=== PATIENT | female | born 1970 | race Caucasian/White ===

== ENCOUNTER → 2017-09-11 12:09 | Outpatient (CLI) | payer OTHER, SELFPAY ==
[2017-09-11 13:23] LABS: Anion Gap 8 (5-15); BUN 17 mg/dL (7-18); BUN/Creat Ratio 16.3 RATIO (10-20); Calcium,Total 8.9 mg/dL (8.5-10.1); Chloride 108 mmol/L (98-107); Creatinine, Serum 1.04 mg/dL (0.55-1.02); EST Glomerular Filtration Rate 60 mL/min (>60); Est Glom Filt Rate - Afr Amer 73 mL/min (>60); Glucose 87 mg/dL (74-106); Magnesium 2.3 mg/dL (1.6-2.6); Potassium 4.2 mmol/L (3.5-5.1); Sodium Level 141 mmol/L (136-145); Thyroid Stim Hormone (TSH) 3.03 uIU/mL (0.358-3.74)
== END ==
PROVIDERS: Family Provider Family Medicine; PCP Family Medicine; Visit Provider Internal Medicine Gastroenterology
DX: R10.9 Unspecified abdominal pain (principal)
CPT/HCPCS: 36415; 80048; 83735; 84436; 84443

== ENCOUNTER → 2017-09-16 09:59 | Outpatient (CLI) | payer OTHER, SELFPAY ==
--- NOTE | 2017-09-16 10:01 | RAD_ITS ---
STUDY: FECAL TRANSIT STUDY. REASON FOR EXAM: Female, 47 years old. Chronic constipation. TECHNIQUE: Images of the abdomen were obtained over a period of 1 week. COMPARISON: None. FINDINGS: The vast majority of the colonic markers are in the left hemicolon. RAD/Colonic Trans GI/w Mul Image IMPRESSION: Large majority of the markers are within the left; falling one week of transit. Electronically Signed: Seb Salvador MD at 13:13 EST Tel [phone], Service support ,
== END ==
PROVIDERS: Family Provider Family Medicine; PCP Family Medicine; Visit Provider Internal Medicine Gastroenterology
DX: K59.00 Constipation, unspecified (principal); R10.9 Unspecified abdominal pain
CPT/HCPCS: 74245

== ENCOUNTER 2017-10-16 07:04 | Day surgery (SDC) | payer OTHER, SELFPAY ==
[2017-10-16] VITALS (7 sets, daily range): BP systolic 87–106; BP diastolic 40–65; PULSE 80–95; RESP 14–16; TEMP 36.3–36.8; O2SAT 98–100; BMI 21.5
--- NOTE | 2017-10-16 08:35 | PCM.OP.BLANK ---
Operative Report Date of Procedure: 10/16/17 Preop diagnosis: [Patient with abdominal pain and constipation abnormal marker study] Postop diagnosis: [Normal-looking: Normal-looking terminal ileum colonoscopy to the terminal ileum] Anesthesia:[Provided the MAC] Instrument:[Olympus adjustable pediatric colonoscope] Informed consent was taken prior to procedure. The patient was brought to the endoscopy suite and placed in the left shoulder down. Anesthesia provided the MAC. Rectal exam was performed prior to inserting the scope. There was some hemorrhoids palpable. Scope was passed into the rectum rectal mucosa was normal. Up to the sigmoid colon and across the transverse colon mucosa was normal. At the hepatic flexure down the right colon the cecum was well-visualized patient had an excellent preparation. Appendiceal orifice was photographed. Terminal ileum was intubated the ileum was normal. Backup the right colon there were no large polyps seen. Across the transverse colon mucosa remain normal. Below the splenic flexure into the left colon there were no large polyps seen. Retroflexion performed in the rectum showed internal hemorrhoids. Was decompressed and the patient tolerated procedure well. Impression: Chronic constipation with slow transit noted by colonic marker study Plan: Patient may try Linzess or TRULANCE consider evaluation by colorectal surgeon
--- NOTE | 2017-10-16 08:40 | OP.PCM_ITS ---
Operative Report Date of Procedure: 10/16/17 Preop diagnosis: [Patient with abdominal pain and constipation abnormal marker study] Postop diagnosis: [Normal-looking: Normal-looking terminal ileum colonoscopy to the terminal ileum] Anesthesia:[Provided the MAC] Instrument:[Olympus adjustable pediatric colonoscope] Informed consent was taken prior to procedure. The patient was brought to the endoscopy suite and placed in the left shoulder down. Anesthesia provided the MAC. Rectal exam was performed prior to inserting the scope. There was some hemorrhoids palpable. Scope was passed into the rectum rectal mucosa was normal. Up to the sigmoid colon and across the transverse colon mucosa was normal. At the hepatic flexure down the right colon the cecum was well- visualized patient had an excellent preparation. Appendiceal orifice was photographed. Terminal ileum was intubated the ileum was normal. Backup the right colon there were no large polyps seen. Across the transverse colon mucosa remain normal. Below the splenic flexure into the left colon there were no large polyps seen. Retroflexion performed in the rectum showed internal hemorrhoids. Was decompressed and the patient tolerated procedure well. Impression: Chronic constipation with slow transit noted by colonic marker study Plan: Patient may try Linzess or TRULANCE consider evaluation by colorectal surgeon
== END 2017-10-16 09:29 | disposition home or self-care (01) ==
LOC: EN 07:06 → AC 07:07
PROVIDERS: Family Provider Family Medicine; PCP Family Medicine; Visit Provider Internal Medicine Gastroenterology
PROC: 0DJD8ZZ Inspection of Lower Intestinal Tract, Via Natural or Artificial Opening Endoscopic (ICD-10-PCS; CPT 45378; principal; 2017-10-16 07:55)
DX: K59.09 Other constipation (principal); K64.8 Other hemorrhoids; G43.909 Migraine, unspecified, not intractable, without status migrainosus; F32.9 Major depressive disorder, single episode, unspecified; Z79.899 Other long term (current) drug therapy
CPT/HCPCS: 45378; J7120

== ENCOUNTER 2017-12-26 04:23 | Emergency (ER) | payer OTHER, SELFPAY ==
[2017-12-26 04:23] VITALS: BP 124/67; PULSE 96; RESP 16; TEMP 36.6; O2SAT 98; BMI 22.1
[2017-12-26] MEDS: proCHLORPERazine 10 MG/2 ML Vial IV (04:36)
[2017-12-26] MEDS: DiphenhydrAMINE 50 MG/ML Syringe 25 MG IV (04:36)
--- NOTE | 2017-12-26 04:36 | ED.DCSUM_ITS ---
- ER Visit Summary Date of Service: 12/26/17 Chief Complaint: Headache History of Present Illness: The patient is a 47 F presenting with headache. She states she woke up with a headache that has gradually worsened since waking. She states it feels similar to her typical migraine headaches. She took Maxalt and 2 Aleve at home with minimal improvement. She denies fever or neck pain. She has nausea and vomiting. She has photophobia. She denies recent trauma. Denies other complaints. Physical Examination: Vitals are stable. Patient is afebrile. Alert no acute distress. HEENT exam is unremarkable. Neck is supple. No meningismus Lungs are clear and equal bilaterally. Heart is regular rate and rhythm. Abdomen is soft nontender nondistended. Extremities are unremarkable. Skin is warm and dry. No focal neurologic deficit. Remainder of exam is unremarkable. Emergency Department Course and Treatment: Patient was given Compazine, Benadryl. CTA head shows normal tak[place] of Yeung without a demonstrated aneurysm or hemodynamically significant stenosis. She has improvement following medications. She was given Toradol IV with further improvement. On reevaluation, she is resting comfortably. She is comfortable with discharge home. Advised follow-up with primary care physician. Advised to return to the ED for worsening complaints. Disposition: Discharge home Impression: Headache This note was generated with [employer] dictation software. It may contain incorrect words, spelling, and punctuation that were not noted in review of the chart prior to signing ED Disposition - Plan for ED Patient: Chief Complaint: Headache Instructions: ED Headache Migraine Referrals: Jarett Faulkner MD [Primary Care Provider] -
--- NOTE | 2017-12-26 05:03 | CT_ITS ---
STUDY: CTA OF THE BRAIN REASON FOR EXAM: Female, 47 years old. Awoke with migraine headache. No relief with medication. RADIATION DOSAGE (If Supplied By Facility): CTDIvol = ( 25.26 ) mGy, DLP = ( 1142.26 ) mGycm TECHNIQUE: CT angiography was performed with a multi-detector CT scanner. Data acquisition was obtained from the skull base through the vertex following intravenous administration of 100 ml of Isovue-370 . MIP images were reconstructed from the axial data set. Post-processing of the angiographic images was performed, with multiplanar reformation and 3D reconstruction. Individualized dose optimization techniques were used for this CT. COMPARISON: None. FINDINGS: Normal bilateral petrous carotid arteries. Normal right cavernous carotid artery with a normal supraclinoid bifurcation. Normal left cavernous carotid artery with a normal supraclinoid bifurcation. Normal right A1 segments of the anterior cerebral artery. Normal left A1 segments of the anterior cerebral artery. Normal intact anterior communicating artery (ACOM). Normal bilateral A2 segments of the anterior cerebral arteries. Normal right M1 and M2 segments of the middle cerebral arteries, with a normal M1 bifurcation. Normal left M1 and M2 segments of the middle cerebral arteries, with a normal M1 bifurcation. Normal right posterior communicating artery (PCOM). Normal left posterior communicating artery (PCOM). Normal bilateral vertebral arteries. Left vertebral artery is dominant. Normal basilar artery with a normal basilar bifurcation. The visualized bilateral superior cerebellar (SCA) arteries are normal. Normal bilateral P1, P2 and visualized P3 segments of the posterior cerebral arteries. There is no demonstrated aneurysm of the grindstone of Yeung. There is no demonstrated abnormality of the visualized brain. CT/CTA Head W/WO Contrast IMPRESSION: Normal grindstone of Yeung without a demonstrated aneurysm or hemodynamically significant stenosis. Electronically Signed: Hussein Slater MD at 5:58 EDT , Service support ,
--- NOTE | 2017-12-26 06:03 | ED.DEP ---
ED Disposition - Plan for ED Patient: Chief Complaint: Headache Instructions: ED Headache Migraine Referrals: Jarett Faulkner MD [Primary Care Provider] -
[2017-12-26] MEDS: Ketorolac 30 MG/ML Syringe IV (06:08)
[2017-12-26 06:10] VITALS: BP 124/60; PULSE 100; RESP 16; O2SAT 100
[2017-12-26 06:39] VITALS: BP 122/60; PULSE 98; RESP 16; O2SAT 100
== END 2017-12-26 06:41 | disposition home or self-care (01) ==
LOC: ED 04:46
PROVIDERS: Emergency Provider Emergency Medicine; Family Provider Family Medicine; PCP Family Medicine
DX: R51 Headache (principal); Z79.899 Other long term (current) drug therapy
CPT/HCPCS: 70496; 96374; 96375; 99284; J7030; Q9967; A4216

== ENCOUNTER → 2018-01-20 14:46 | Outpatient (CLI) | payer OTHER, SELFPAY ==
--- NOTE | 2018-01-20 14:47 | MRI_ITS ---
STUDY: MRI LUMBAR SPINE WITHOUT CONTRAST REASON FOR EXAM: Female, 47 years old. Back pain with left sciatica TECHNIQUE: Standardized fat and water weighted pulse sequences were obtained in the sagittal and axial planes. COMPARISON: None FINDINGS: T12-L1: Normal endplates. Normal disc height, hydration and morphology. Normal bilateral facet joints. Normal central canal and bilateral lateral recesses. Normal bilateral intervertebral neural foramina. Normal lumbar lordosis. There is no substantial scoliosis. Normal conus medullaris that terminates at L1 L1-2: Normal endplates. Normal disc height, hydration and morphology. Normal bilateral facet joints. Normal central canal and bilateral lateral recesses. Normal bilateral intervertebral neural foramina. L2-3: Normal endplates. Normal disc height, hydration and morphology. Normal bilateral facet joints. Normal central canal and bilateral lateral recesses. Normal bilateral intervertebral neural foramina. L3-4: Normal endplates. Normal disc height, hydration and minimal annular bulge. Normal bilateral facet joints. Normal central canal and bilateral lateral recesses. Normal bilateral intervertebral neural foramina. L4-5: Normal endplates. Normal disc height, desiccation and minor annular bulge with small right posterolateral/foraminal disc protrusion. Mild facet arthropathy.. Normal central canal. Mild left lateral recess encroachment Mild right lateral recess and neuroforaminal encroachment.. L5-S1: Normal endplates. Normal disc height, desiccation and minimal annular bulge. Bilateral facet arthropathy.. Normal central canal and bilateral lateral recesses. Normal bilateral intervertebral neural foramina. Normal visualized sacral ala. 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 Normal visualized paraspinous soft tissue structures. MRI/Spine Lumbar (Routine) IMPRESSION: Spinal stenosis at L4-5 secondary to disc disease and bony hypertrophy greater on the right. Minor bulging of the annuli at L3-4 and L5-S1 without evidence for spinal stenosis Electronically Signed: Roosevelt Shahid MD at 18:20 EDT , Service support ,
== END ==
PROVIDERS: Family Provider Family Medicine; PCP Family Medicine; Visit Provider Family Medicine
DX: M54.40 Lumbago with sciatica, unspecified side (principal)
CPT/HCPCS: 72148

== ENCOUNTER → 2018-03-19 13:14 | Outpatient (CLI) | payer OTHER, SELFPAY ==
[2018-03-24 10:32] LABS: HPV Reflexed? NOT INDICATED
== END ==
PROVIDERS: Visit Provider Obstetrics & Gynecology
DX: R30.0 Dysuria (principal); Z12.4 Encounter for screening for malignant neoplasm of cervix; Z86.19 Personal history of other infectious and parasitic diseases
CPT/HCPCS: 87077; 87086; 87088; 87186; 88175; G0145

== ENCOUNTER → 2018-03-26 07:32 | Outpatient (CLI) | payer OTHER, SELFPAY | PROVIDERS: Family Provider Family Medicine; PCP Family Medicine; Visit Provider Orthopaedic Surgery | DX: M99.83 Other biomechanical lesions of lumbar region (principal) | CPT/HCPCS: 78306 ==

== ENCOUNTER → 2018-04-14 08:07 | Outpatient (CLI) | payer OTHER, SELFPAY ==
--- NOTE | 2018-04-14 08:09 | BI_ITS ---
MAMMOGRAPHY - BILATERAL SCREENING REASON FOR EXAM: Female, 48 years old. Routine annual screening examination. PERTINENT HISTORY: Non-contributory. History of prior right cyst aspiration. TECHNIQUE: Digital bilateral breast isidra (3D mammographic acquisition) in the CC and MLO projections. 2-D mediolateral oblique (MLO) and craniocaudad (CC) views of both breasts were obtained. CAD: Full Field Digital Mammography with Computer Added Detection was performed. COMPARISON: Comparison is made with prior examination dated December 27, 2016 and February 14, 2016 FINDINGS: Breast Composition: The breasts are heterogeneously dense, which may obscure small masses. The nodular density in the mid medial portion of the left breast as increased in size. It presently measures 1.7 cm x 2.1 cm. Prior sonogram demonstrated this to be a cyst. The previously seen nodular density in the right breast is not seen at this time in keeping with the history of prior aspiration. No other significant abnormalities are identified. BI/SCREENING MAMM (CAD), BILAT IMPRESSION: Increased size of the nodular density seen in the right breast as described suggestive of enlargement of the previously documented cyst. ASSESSMENT CATEGORY: BIRADS Category 2: Benign. A letter regarding these results will be sent to the patient by the facility within 30 days. Approximately 10% of breast cancers are not detected by mammography. A normal mammogram should not delay biopsy of a clinically suspicious abnormality. [id number] Electronically Signed: Seb Salvador MD at 9:08 EDT Tel [phone], Service support ,
--- NOTE | 2018-04-14 08:31 | BD_ITS ---
STUDY: DUAL ENERGY X-RAY ABSORPTIOMETRY / DXA REASON FOR EXAM: Female, 48 years old. Loss of height. TECHNIQUE: Bone Mineral Density (BMD) measurements of lumbar spine and bilateral hips were obtained. COMPARISON: None. FINDINGS: Lumbar Spine (L1-L4): g/cm2 (1.206) / T-score (0.3) / Z-score (0.6) Findings are suggestive of normal bone density with a low fracture risk. Left Femur Total: g/cm2 (0.783) / T-score (-1.8) / Z-score (-1.4) Left Femoral Neck: g/cm2 (0.796) / T-score (-1.7) / Z-score (-1.0) Right Femur Total: g/cm2 (0.795) / T-score (-1.7) / Z-score (-1.3) Right Femoral Neck: g/cm2 (0.863) / T-score (-1.3) / Z-score (-0.6) BD/Dexa Bone Density Study IMPRESSION: The patient is considered osteopenic as outlined below according to World [place] Organization (WHO) criteria with a moderate fracture risk. Reference Information: The T-score is the number of standard deviations above or below the standard which is normal for young adults at their peak bone mineral density. The World Health Organization (WHO) interprets the T-scores as follows: Above -1 Normal bone density Between -1 and -2.5 Osteopenia Equal to / or below -2.5 Osteoporosis As a practical clinical guideline, osteopenia may be graded as follows: Mild -1 through -1.5 Moderate -1.6 through -2.0 Severe -2.1 through -2.4 The Z-score is the number of standard deviations above or below age-matched controls. A Z-score of less than -1.5 would be considered abnormal. References: 1. NIH Osteoporosis and Related Bone Diseases http://www.osteo.org 2. International Society for Clinical Densitometry http://www.iscd.org 3. National Osteoporosis Foundation http://www.nof.org Electronically Signed: Seb Salvador MD at 14:14 EDT Tel [phone], Service support ,
== END ==
PROVIDERS: Family Provider Family Medicine; PCP Family Medicine; Visit Provider Orthopaedic Surgery
DX: Z12.31 Encounter for screening mammogram for malignant neoplasm of breast (principal); M99.83 Other biomechanical lesions of lumbar region
CPT/HCPCS: 77062; 77067; 77080; G0279

== ENCOUNTER 2018-05-13 09:30 | Outpatient (RCR) | payer OTHER, SELFPAY ==
--- NOTE | 2017-12-24 18:50 | MASS.EVAL ---
Massage Therapy Evaluation: Initial Evaluation Date: 12/22/2017 SUBJECTIVE: Laxmi is a 47 year old female who was referred to the [facility] for a massotherapy evaluation by Dr. Ron Faulkner with the diagnosis of neck pain. Laxmi presents today with the symptoms of neck and upper back pain and tension. She complains of getting migraines. She also has muscle tension in her low back and hips. She reports having minimal limitations during her daily activities. OBJECTIVE: Upon observation Laxmi has poor posture with her head forward and shoulders forward from the neutral position in sitting and standing. After examination and palpation I found Laxmi to have very high muscle tension with tenderness and myofascial restrictions in her sub occipitals, trapezius, rhomboids, scalenes, thoracic paraspinals. Her hips and lumbar region were also tight. The first treatment consisted of a one hour massage to her full body with myofascial release, muscle stripping, trigger point compression techniques, and cervical manual traction. ASSESSMENT: I feel that Laxmi is a good candidate for massotherapy at this time. She had a favorable response to the first treatment with reduction in her muscle aches, pain and tension. She also had improvement in her cervical flexibility. PLAN: The plan of care was reviewed with the patient. The patient is to be seen on as needed basis for a total of ten sessions with the recommendation of once every four weeks for a one hour treatment. Lesli Vazquez LMT
--- NOTE | 2018-07-21 13:33 | DS.PCM_ITS ---
Massage Therapy Discharge Summary: Discharge Date: 07/21/2018 Laxmi was seen for a massotherapy evaluation on 12/28/2017 with the diagnosis of neck pain and having migraines. She was treated with three sessions of massage therapy consisting of deep pressure soft tissue techniques, myofascial release and trigger point compression to her cervical and upper extremities. Laxmi responded well to the therapy by reporting decreased tension and pain throughout her neck and shoulders. Her goals for therapy were not met due to no follow up treatment sessions performed. At this time this patient is being discharged from our care at [facility] facility.
== END 2018-05-13 19:00 | disposition home or self-care (01) ==
LOC: MASS 09:30
PROVIDERS: Family Provider Family Medicine; PCP Family Medicine; Visit Provider Family Medicine
DX: M54.2 Cervicalgia (principal); M79.1 Myalgia
CPT/HCPCS: 97124

== ENCOUNTER → 2018-05-21 08:47 | Outpatient (CLI) | payer OTHER, SELFPAY ==
--- NOTE | 2018-05-21 09:23 | MRI_ITS ---
STUDY: MR PELVIS WITHOUT CONTRAST REASON FOR EXAM: Female, 48 years old. Low back pain. Sacroiliitis. TECHNIQUE: Standardized fat and water weighted pulse sequences were obtained in all 3 orthogonal planes. # of Images: 216 COMPARISON: CT April 25, 2017. FINDINGS: Normal urinary bladder. Normal visualized small intestine. Normal visualized colon. There is absence of the uterus consistent with a prior hysterectomy. There are 3.0 and 2.9 cm right adnexal cysts. There is no pelvic fluid. There is no pelvic mass lesion or lymphadenopathy. Normal visualized pelvic arteries. The generalized signal intensity of the osseous structures is intact. There is no fracture. The joint spaces of the hips are well-preserved. The sacroiliac joints are well preserved. Normal abdominal wall. MRI/Pelvis (Routine) IMPRESSION: Sacroiliac joints are well-maintained. No fracture or avascular necrosis of the hips. Right adnexal cysts. Prior hysterectomy. Electronically Signed: Elia Lares MD at 15:55 EDT , Service support ,
[2018-05-21 10:32] LABS: Erythrocyte Sedimentation Rate 4 mm/hr (0-20)
[2018-05-21 11:00] LABS: CRP < 2.90 mg/L (0.0-3.0); Calcium,Total 8.5 mg/dL (8.5-10.1); Thyroid Stim Hormone (TSH) 3.58 uIU/mL (0.358-3.74)
[2018-05-21 11:05] LABS: PTHIN 54.2 pg/mL (18.4-80.1); Vitamin D,25 Hydroxy 24.2 ng/mL (29.95-100.01)
[2018-05-26 16:09] LABS: PROEL- A/G Ratio 1.3 (0.7-1.7); PROEL- Alpha-1 Globulin 0.2 g/dL (0.0-0.4); PROEL- Alpha-2 Globulin 0.7 g/dL (0.4-1.0); PROEL- Gamma Globulin 1.1 g/dL (0.4-1.8)
[2018-05-27 11:13] LABS: HLA B27 Negative (.)
== END ==
PROVIDERS: Family Provider Family Medicine; PCP Family Medicine; Referring Provider Internal Medicine Rheumatology; Visit Provider Internal Medicine Rheumatology
DX: M46.1 Sacroiliitis, not elsewhere classified (principal); R53.82 Chronic fatigue, unspecified; M89.9 Disorder of bone, unspecified; M54.5 Low back pain
CPT/HCPCS: 36415; 72195; 81374; 82306; 82310; 83970; 84165; 84443; 85652; 86140

== ENCOUNTER → 2018-10-19 15:28 | Outpatient (CLI) | payer OTHER, SELFPAY ==
--- NOTE | 2018-10-19 15:35 | CT_ITS ---
STUDY: CT ABDOMEN AND PELVIS WITHOUT CONTRAST REASON FOR EXAM: Female, 48 years old. Left flank pain RADIATION DOSAGE (If Supplied By Facility): CTDIvol = ( 9.36 ) mGy, DLP = ( 449.54 ) mGycm TECHNIQUE: Transaxial images were obtained from the dome of the diaphragm to the symphysis pubis without oral contrast, and without intravenous contrast. Sagittal and coronal images were reconstructed. Individualized dose optimization techniques were used for this CT. COMPARISON: None. FINDINGS: The visualized lung bases are unremarkable. The visualized portions of the heart are within normal limits. Normal liver. Normal gallbladder and extrahepatic biliary system. Normal spleen. Normal pancreas. Normal bilateral adrenal glands. Normal right kidney. There is 7 mm stone in the left kidney. Normal visualized stomach. Normal small intestine. Normal colon. The appendix is visualized and appears normal. Normal abdominal aorta. Normal inferior vena cava. Normal retroperitoneum. Normal urinary bladder. Normal abdominal wall. Normal osseous structures. CT/Abdomen/Pelvis without Cont IMPRESSION: There is 7 mm stone in the left kidney. Electronically Signed: Saman Sofia, at 16:17 EDT Tel , Service support ,
== END ==
PROVIDERS: Family Provider Family Medicine; PCP Family Medicine; Referring Provider Urology; Visit Provider Urology
DX: N20.0 Calculus of kidney (principal); R10.9 Unspecified abdominal pain
CPT/HCPCS: 74176

== ENCOUNTER → 2018-10-20 12:12 | Outpatient (CLI) | payer OTHER, SELFPAY | PROVIDERS: Family Provider Family Medicine; PCP Family Medicine; Referring Provider Urology; Visit Provider Urology | DX: R30.0 Dysuria (principal) | CPT/HCPCS: 87077; 87086; 87088; 87186 ==

== ENCOUNTER → 2018-11-04 11:19 | Outpatient (CLI) | payer OTHER, SELFPAY | PROVIDERS: Family Provider Family Medicine; PCP Family Medicine; Referring Provider Urology; Visit Provider Urology | DX: Z01.812 Encounter for preprocedural laboratory examination (principal) | CPT/HCPCS: 87086; 87088; 87186 ==

== ENCOUNTER 2018-11-13 07:20 | Day surgery (SDC) | payer OTHER, SELFPAY ==
[2018-11-13] VITALS (8 sets, daily range): BP systolic 92–120; BP diastolic 56–82; PULSE 73–103; RESP 16; TEMP 36.2–37.1; O2SAT 100; BMI 21.6
[2018-11-13] MEDS: Cefazolin 2 GM in 0.9% Normal Saline 100 ML IV (08:55)
--- NOTE | 2018-11-13 09:01 | PCM.DC.URO ---
Discharge Diet: No Restrictions Discharge Activity: Return to Normal Activity May resume sexual activity in: No Restrictions Call your doctor if you observe: Fever of 101 or Higher, Inability to urinate, Shortness of breath, Chest pain, Calf discomfort, Uncontrolled pain Allergies/Adverse Reactions: Allergies Sulfa (Sulfonamide Antibiotics) Allergy (Verified 11/06/18 13:16) Hives Medications to take at Discharge Topiramate [Topamax] 50 mg PO TID 06/27/13 buPROPion SR [Wellbutrin Sr] 150 mg PO DAILY 06/27/13 Rizatriptan Benzoate [Maxalt] 10 mg PO .X1 PRN 12/26/17 Cephalexin [Keflex] 500 mg PO DAILY 11/06/18 Duloxetine Hcl [Cymbalta] 20 mg PO DAILY 11/06/18 Erenumab-Aooe [Aimovig Autoinjector] 70 mg SQ QMONTH 11/06/18 Primary Care Physician: Jarett Faulkner MD [Primary Care Provider] - Test Results: Test results from this visit will be discussed in further detail at your follow-up appointment, if applicable. Please Follow Up With: Alexa Miller MD When: 2-3 weeks with a [facility] Proposed Discharge Date: 11/13/18
--- NOTE | 2018-11-13 09:04 | DCINST_ITS ---
Discharge Diet: No Restrictions Discharge Activity: Return to Normal Activity May resume sexual activity in: No Restrictions Call your doctor if you observe: Fever of 101 or Higher, Inability to urinate, Shortness of breath, Chest pain, Calf discomfort, Uncontrolled pain Allergies/Adverse Reactions: Allergies Sulfa (Sulfonamide Antibiotics) Allergy (Verified 11/06/18 13:16) Hives Medications to take at Discharge Topiramate [Topamax] 50 mg PO TID 06/27/13 buPROPion SR [Wellbutrin Sr] 150 mg PO DAILY 06/27/13 Rizatriptan Benzoate [Maxalt] 10 mg PO .X1 PRN 12/26/17 Cephalexin [Keflex] 500 mg PO DAILY 11/06/18 Duloxetine Hcl [Cymbalta] 20 mg PO DAILY 11/06/18 Erenumab-Aooe [Aimovig Autoinjector] 70 mg SQ QMONTH 11/06/18 Primary Care Physician: Jarett Faulkner MD [Primary Care Provider] - Test Results: Test results from this visit will be discussed in further detail at your follow- up appointment, if applicable. Please Follow Up With: Alexa Miller MD When: 2-3 weeks with a [facility] Proposed Discharge Date: 11/13/18
--- NOTE | 2018-11-13 09:04 | PCM.OPRPT ---
Problem List (1) Renal calculus, left Status: Acute Report of Operation Date of Procedure: 11/13/18 Pre-Operative Diagnosis: left renal calculus Post-Operative Diagnosis: same Surgery/Procedure Performed:: left extracorporeal shockwave lithotripsy Description of Surgical Findings:: stone looks well fragmented. Type of Anesthesia:: General Description of Procedure: The patient is a 48-year-old woman who was identified as having a left renal calculus in the office. All risk benefits and alternatives were discussed and she decided to proceed with surgical intervention. Informed consent was obtained for extracorporal shockwave lithotripsy. She was taken to the operating room and placed on the lithotripsy table. Anesthesia monitored the head, neck, airway, IV access and vital signs throughout the case. Once anesthesia was appropriately administered, the patient was aligned with a lithotripter. The stone was easily seen on fluoroscopy. It measured approximately 6 x 4 mm in size. 2000 shocks were applied and the stone appeared to be essentially dissolved. The case was terminated. The patient was awakened and taken to the recovery room in good condition. There were no complications during this procedure. Grafts/Implants Used: none - Complications none - Admit VTE Documentation VTE Present on Admission: Yes VTE Mechan Device Prophylaxis: SCD's VTE Pharm Prophylaxis ordered?: No Reason prophylaxis not ordered:: Treatment Not Indicated
== END 2018-11-13 12:00 | disposition home or self-care (01) ==
LOC: SDC 07:20 → AC 07:21
PROVIDERS: Family Provider Family Medicine; PCP Family Medicine; Referring Provider Urology; Visit Provider Urology
PROC: (CPT 50590; principal; 2018-11-13 08:45)
DX: N20.0 Calculus of kidney (principal); G43.909 Migraine, unspecified, not intractable, without status migrainosus; Z79.899 Other long term (current) drug therapy
CPT/HCPCS: 50590; J7120; J2405

== ENCOUNTER → 2018-11-26 | Outpatient (CLI) | payer OTHER, SELFPAY ==
[2018-11-13 07:39] VITALS: BMI 21.6
--- NOTE | 2018-11-26 10:20 | RAD_ITS ---
STUDY: X-RAY - ABDOMEN/PELVIS REASON FOR EXAM: Female, 48 years old. Flank pain TECHNIQUE: 2 views COMPARISON: None. FINDINGS: Normal visualized lung bases. There is an unremarkable bowel gas pattern. There is no demonstrated free abdominal air. The visualized liver, spleen and kidneys are grossly normal in size and morphology. There are calcified phleboliths in the pelvis. Normal visualized osseous structures. RAD/Abdomen Single View IMPRESSION: Normal x-ray examination of the abdomen and pelvis. Electronically Signed: Gavin Tavarez MD at 11:06 EDT , Service support ,
== END | disposition home or self-care (01) ==
LOC: RAD 10:02
PROVIDERS: Family Provider Family Medicine; PCP Family Medicine; Referring Provider Urology; Visit Provider Urology
DX: N20.0 Calculus of kidney (principal)
CPT/HCPCS: 74018

== ENCOUNTER → 2018-12-03 | Outpatient (CLI) | payer OTHER, SELFPAY ==
[2018-11-13 07:39] VITALS: BMI 21.6
--- NOTE | 2018-12-03 12:36 | RAD_ITS ---
STUDY: X-RAY - PELVIS AND BILATERAL HIPS REASON FOR EXAM: Female, 48 years old. Bilateral hip pain TECHNIQUE: AP view of the pelvis.? 2 views of the right hip, and 2 views of the left hip were obtained. COMPARISON: None. FINDINGS: There is a non-specific bowel gas pattern. Normal visualized soft tissue structures. Normal bilateral iliac wings, sacroiliac joints and visualized sacrum. Normal bilateral superior and inferior pubic rami. Normal pubic symphysis. Normal bilateral ischial tuberosities. Normal visualized right femoral head. Normal right acetabulum. Normal right hip joint. Normal visualized left femoral head. Normal left acetabulum. Normal left hip joint. RAD/Hips B/L min 2 views w/ Pelvis IMPRESSION: Normal x-ray examination of the pelvis and bilateral hips. Electronically Signed: Don Reed MD at 21:32 EDT Tel , Service support ,
== END | disposition home or self-care (01) ==
LOC: RAD 12:02
PROVIDERS: Family Provider Family Medicine; PCP Family Medicine; Referring Provider Anesthesiology Pain Medicine; Visit Provider Anesthesiology Pain Medicine
DX: M25.552 Pain in left hip (principal); M25.551 Pain in right hip
CPT/HCPCS: 73521

== ENCOUNTER → 2018-12-19 | Outpatient (CLI) | payer OTHER, SELFPAY ==
[2018-11-13 07:39] VITALS: BMI 21.6
== END | disposition home or self-care (01) ==
LOC: LABSPEC 11:35
PROVIDERS: Family Provider Family Medicine; PCP Family Medicine; Referring Provider Urology; Visit Provider Urology
DX: N20.0 Calculus of kidney (principal)
CPT/HCPCS: 81050

== ENCOUNTER → 2019-03-25 | Outpatient (CLI) | payer OTHER, SELFPAY ==
[2018-11-13 07:39] VITALS: BMI 21.6
[2019-03-25 08:12] LABS: Thyroid Stim Hormone (TSH) 3.69 uIU/mL (0.358-3.74)
== END | disposition home or self-care (01) ==
LOC: LAB 06:42
PROVIDERS: Family Provider Family Medicine; PCP Family Medicine; Referring Provider Internal Medicine Gastroenterology; Visit Provider Internal Medicine Gastroenterology
DX: R07.9 Chest pain, unspecified (principal); R12 Heartburn; K21.9 Gastro-esophageal reflux disease without esophagitis; K59.00 Constipation, unspecified; R05 Cough; R13.14 Dysphagia, pharyngoesophageal phase
CPT/HCPCS: 36415; 84443

== ENCOUNTER → 2019-03-29 | Outpatient (CLI) | payer OTHER, SELFPAY ==
[2018-11-13 07:39] VITALS: BMI 21.6
[2019-03-29 09:33] LABS: Glucose, Dipstick Normal (Normal); Ketone-Dipstick 5 mg/dl (Negative); Leukocyte Esterase-Dipstick 100 /ul (Negative); Nitrite-Dipstick Positive (Negative); Occult Blood-Urine 10 /ul (Negative); Protein-Dipstick 30 mg/dl (Negative); Specific Gravity, Urine 1.025 (1.002-1.030); Urine Clarity Sl. Cloudy (Clear); Urine Urobilinogen 1 mg/dl (Normal); Urine pH 6.5 (5.0 - 8.0)
[2019-03-29 09:36] LABS: Color, Urine SEE COMMENT BELOW (Yellow); Urine Bilirubin Dipstick 1 mg/dL (Negative)
== END | disposition home or self-care (01) ==
PROVIDERS: Family Provider Family Medicine; PCP Family Medicine; Referring Provider Urology; Visit Provider Urology
DX: R30.0 Dysuria (principal)
CPT/HCPCS: 81002; 87086; 87088; 87186

== ENCOUNTER → 2019-04-08 | Outpatient (CLI) | payer OTHER, SELFPAY ==
[2018-11-13 07:39] VITALS: BMI 21.6
--- NOTE | 2019-04-08 14:00 | CT_ITS ---
STUDY: CT ABDOMEN AND PELVIS WITH AND WITHOUT CONTRAST REASON FOR EXAM: Female, 49 years old. Recurrent UTIs. Left flank pain. RADIATION DOSAGE (If Supplied By Facility): CTDIvol = ( 12.54 ) mGy, DLP = ( 1748.18 ) mGycm TECHNIQUE: Transaxial images were obtained from the dome of the diaphragm to the symphysis pubis without oral contrast. 100CC IV Isovue 300 was administered. Sagittal and coronal images were reconstructed. Individualized dose optimization techniques were used for this CT. COMPARISON: Comparison is made with prior study of October 19, 2018. FINDINGS: The visualized lung bases are unremarkable. The visualized portions of the heart are within normal limits. Normal liver. Normal gallbladder and extrahepatic biliary system. Normal spleen. Normal pancreas. Normal bilateral adrenal glands. Normal right kidney. Normal left kidney. Normal visualized stomach. Normal small intestine. Moderate/large amount of fecal material is seen in the colon. There is non-visualization of the appendix. Normal abdominal aorta. Normal inferior vena cava. Normal retroperitoneum. Normal urinary bladder. There is absence of the uterus consistent with a prior hysterectomy. Normal abdominal wall. Normal osseous structures. CT/CT Abd/Pelvis W/WO Contrast IMPRESSION: Moderate/large amount of fecal material is seen in the colon. Electronically Signed: Seb Salvador, at 9:39 EDT , Service support ,
== END | disposition home or self-care (01) ==
LOC: CT 13:21
PROVIDERS: Family Provider Family Medicine; PCP Family Medicine; Referring Provider Urology; Visit Provider Urology
DX: N39.0 Urinary tract infection, site not specified (principal); R10.9 Unspecified abdominal pain
CPT/HCPCS: 74178; Q9967

== ENCOUNTER → 2019-05-07 | Outpatient (CLI) | payer OTHER, SELFPAY ==
[2018-11-13 07:39] VITALS: BMI 21.6
--- NOTE | 2019-05-07 07:21 | BI_ITS ---
MAMMOGRAPHY - BILATERAL SCREENING REASON FOR EXAM: Female, 49 years old. Routine annual screening examination. PERTINENT HISTORY: Non-contributory. History of prior right breast aspiration. TECHNIQUE: Digital bilateral breast edmundo (3D mammographic acquisition) in the CC and MLO projections. 2-D mediolateral oblique (MLO) and craniocaudad (CC) views of both breasts were obtained. CAD: Full Field Digital Mammography with Computer Added Detection was performed. COMPARISON: Comparison is made with prior study dated April 14, 2018 and December 27, 2016. FINDINGS: Breast Composition: The breasts are heterogeneously dense, which may obscure small masses. There are no dominant masses or suspicious calcifications. The previously seen nodular density in the mid medial portion of left breast as decrease in size. It presently measures 8.2 mm x 8 mm. No other significant abnormalities are identified. BI/SCREEN MAMM (CAD) W/EDMUNDO BILAT IMPRESSION: Stable bilateral screening mammogram. Yearly follow-up mammogram recommended. (A) ASSESSMENT CATEGORY: BIRADS Category 2: Benign. A letter regarding these results will be sent to the patient by the facility within 30 days. Approximately 10% of breast cancers are not detected by mammography. A normal mammogram should not delay biopsy of a clinically suspicious abnormality. [id number] Electronically Signed: Seb Salvador, at 9:03 EDT , Service support ,
== END | disposition home or self-care (01) ==
LOC: OPBI 07:22
PROVIDERS: Family Provider Family Medicine; PCP Family Medicine; Referring Provider Obstetrics & Gynecology; Visit Provider Obstetrics & Gynecology
DX: Z12.31 Encounter for screening mammogram for malignant neoplasm of breast (principal)
CPT/HCPCS: 77063; 77067

== ENCOUNTER → 2019-06-24 15:19 | Outpatient (CLI) | payer OTHER, SELFPAY ==
[2019-06-16 13:04] VITALS: BMI 22.8
--- NOTE | 2019-06-24 15:22 | EKG12_ITS ---
Test Reason : FAM. HX Blood Pressure : / mmHG Vent. Rate : 085 BPM Atrial Rate : 085 BPM P-R Int : 148 ms QRS Dur : 086 ms QT Int : 374 ms P-R-T Axes : 086 089 074 degrees QTc Int : 445 ms Normal sinus rhythm Normal ECG Confirmed by IGNACIO ALVARADO, JUANITO ([id number]), editor dictionary ILDA SUN ([id number]) on 06/30/2019 12:07:40 PM Referred By: Haylie Coley Confirmed By:LILIANA PIERRE MD
== END ==
PROVIDERS: Family Provider Internal Medicine; PCP Internal Medicine; Referring Provider Internal Medicine; Visit Provider Internal Medicine
DX: Z82.49 Family history of ischemic heart disease and other diseases of the circulatory system (principal); R07.9 Chest pain, unspecified
CPT/HCPCS: 93005

== ENCOUNTER → 2019-06-29 06:06 | Outpatient (CLI) | payer OTHER, SELFPAY ==
[2019-06-16 13:04] VITALS: BMI 22.8
[2019-06-29 07:17] LABS: Cholesterol 239 mg/dL (200); High Density Lipoprotein 71 mg/dL; Triglycerides 130 mg/dL; Very Low Density Lipoprotein 26 mg/dL (5-40)
== END ==
PROVIDERS: Family Provider Internal Medicine; PCP Internal Medicine; Referring Provider Internal Medicine; Visit Provider Internal Medicine
DX: E78.5 Hyperlipidemia, unspecified (principal)
CPT/HCPCS: 36415; 80061

== ENCOUNTER → 2019-07-08 06:44 | Outpatient (CLI) | payer OTHER, SELFPAY ==
[2019-06-16 13:04] VITALS: BMI 22.8
--- NOTE | 2019-07-08 16:44 | STRESSREP_ITS ---
Stress Test Report Date: 07/08/2019 Procedure: Exercise tolerance test/imaging study Indications: Chest pain Consent: Per the patient Procedure: The patient exercised on a Saad protocol for 9 minutes achieving a peak heart rate of 157 bpm (91 % predicted maximal heart rate) with a peak blood pressure 144/62 mmHg and a peak MET capacity of 10.1 METs. The baseline ECG demonstrated normal sinus rhythm. The peak exercise ECG demonstrated sinus tachycardia with baseline artifact and what appears to be upsloping ST depressions in the inferior leads. EKG during recovery revealed no significant ischemic changes [There were no cardiac dysrhythmias pretest, during exercise, or recovery]. The functional capacity was considered above average for age. There was [no complaint of chest discomfort during exercise or recovery]. The examination was discontinued secondary to dyspnea. Impression: 1. Technically adequate (percent predicted maximal heart rate greater than 85%) exercise tolerance test 2. Stress test is negative for exercise-induced EKG changes of ischemia 3. The test test is negative for exercise-induced chest pain 4. Functional capacity is above average for age 5. Nuclear images pending Myocardial perfusion imaging study: Technique: The patient was injected with 11 mCi of technetium 99m Cardiolite and sub sequently rest SPECT Cardiolite nuclear imaging was obtained in the horizontal long, vertical long, and short axis views. The patient exercised on a Saad protocol. Please see above for details. The patient was injected with 33 mCi of technetium 99m Cardiolite and subsequently stress SPECT Cardiolite nuclear imaging was obtained in the horizontal long, vertical long, and short axis views. A gated Cardiolite study at peak stress was obtained. Interpretation: Rest and stress SPECT Cardiolite nuclear imaging status post realignment, normalization, and attenuation correction, demonstrates normal myocardial radioisotope uptake. The gated Cardiolite study demonstrates no significant regional wall motion abnormalities. The reported LVEF is greater than 70 %. Impression: 1. There is no evidence of significant ischemia or infarction. 2. The gated Cardiolite study reports an LVEF of greater than 70 %. This note was generated with [employer] software. It may contain incorrect words, spelling, and punctuation that were not noted in checking the note before signing.
== END ==
PROVIDERS: Family Provider Internal Medicine; PCP Internal Medicine; Referring Provider Internal Medicine; Visit Provider Internal Medicine
DX: R07.9 Chest pain, unspecified (principal)
CPT/HCPCS: 78452; 93017; A9500; A4216

== ENCOUNTER → 2019-09-02 10:04 | Outpatient (CLI) | payer OTHER, SELFPAY ==
[2019-09-01 16:33] VITALS: BMI 23.7
--- NOTE | 2019-09-02 10:05 | RAD_ITS ---
STUDY: X-RAY - RIGHT KNEE REASON FOR EXAM: Female, 49 years old. FALL LAST WEEK, PAIN AND SWELLING ANTERIOR KNEE TECHNIQUE: 4 view(s) of the knee. COMPARISON: Comparison is made with prior study dated August 20, 2011. FINDINGS: Normal visualized distal femur. Normal visualized proximal tibia and fibula. Normal proximal tibiofibular articulation. Normal medial femorotibial compartment. Normal lateral femorotibial compartment. Normal patellofemoral articulation. The soft tissue structures are unremarkable. RAD/Knee 4 or More Views IMPRESSION: Normal x-ray examination of the knee. Electronically Signed: Seb Salvador, at 10:37 EST , Service support ,
== END ==
LOC: RAD 10:05
PROVIDERS: PCP Internal Medicine; Referring Provider Nurse Practitioner Family; Visit Provider Nurse Practitioner Family
DX: M25.561 Pain in right knee (principal)
CPT/HCPCS: 73564

== ENCOUNTER 2020-01-18 09:57 | Observation (INO) | payer OTHER, SELFPAY ==
[2019-09-17 07:54] VITALS: BMI 23.7
[2019-12-28 15:10] VITALS: BMI 23.7
[2020-01-17 17:14] LABS: Probe Check PASS; Specimen Processing Control PASS
[2020-01-18] VITALS (12 sets, daily range): BP systolic 100–138; BP diastolic 45–87; PULSE 83–112; RESP 14–16; TEMP 35.9–36.6; O2SAT 93–100; BMI 24.0; BMI 23.9
--- NOTE | 2020-01-18 08:43 | PCM.HP.STD ---
Problem List (1) Cystocele Status: Acute (2) Vaginal vault prolapse Status: Acute (3) Stress incontinence Status: Acute History of Present Illness Date of Admission: 01/18/20 Chief Complaint: cystocele, vault prolapse, stress incontinence The patient is a 49 year old F with pelvic organ prolapse who now presents for definitive surgical intervention following urodynamics and office cystoscopy. Risk benefits and alternatives were discussed including the risk of COVID-19. The patient understands and desires to proceed. Past Medical History Past Medical History (Chronic Problems): Chronic Problems (Last Reviewed 01/18/20 @ 08:[address] Alexa Miller MD) Chronic constipation (Chronic) Migraine (Chronic) Anxiety and depression (Chronic) Hyperlipidemia (Chronic) Medical History: Medical History (Last Reviewed 01/18/20 @ 08:[address] Alexa Miller MD) Back problem M53.9 Breast lump N63.0 GI problem R19.8 History of kidney stones Z87.442 Osteopenia M85.80 benign mass on kidney and or bladder manager program Allergies Sulfa (Sulfonamide Antibiotics) Allergy (Verified 01/12/20 08:52) Hives Home Medications: Ambulatory Orders Medication Instructions Recorded Rizatriptan Benzoate [Maxalt] 10 mg PO .X1 PRN 12/26/17 meloxicam 7.5 mg tablet 7.5 mg PO DAILY 06/11/19 erenumab-aooe 70 mg/mL 70 mg SC QMONTH 06/16/19 subcutaneous auto-injector polyethylene glycol 3350 17 8.5 g PO DAILY g 06/16/19 gram/dose oral powder rosuvastatin 5 mg tablet 5 mg PO DAILY #90 tab 07/14/19 duloxetine 30 mg capsule,delayed 30 mg PO BID #180 cap 10/05/19 release sprinkle nortriptyline 25 mg capsule 25 mg PO QHS #90 cap 10/05/19 trazodone 50 mg tablet 50 mg PO QHS PRN #30 tab 12/14/19 linaclotide 145 mcg capsule 145 mcg PO DAILY cap 12/28/19 magnesium 250 mg tablet 250 mg PO DAILY 12/28/19 melatonin 10 mg tablet 10 mg PO HS PRN 12/28/19 Doxycycline Hyclate 100 mg PO BID PRN 01/12/20 Surgical History: Surgical History (Last Reviewed 01/18/20 @ 08:[address] Alexa Miller MD) History of ankle surgery Z98.890 Right, 1989 History of hysterectomy Z90.710 2000 History of knee surgery Z98.890 Rt 2005, Lt. 2006 History of tonsillectomy Z90.89 Smoking Status: Never smoker Tobacco Use: Non-smoker Review of Systems Constitutional: Denies: Anorexia, Chills, Fever Eyes: Denies: Double vision HEENT: Denies: Difficulty Swallowing, Visual Changes Cardiovascular: Denies: Chest Pain, Chest Pressure Respiratory: Denies: Cough, Shortness of Breath Gastrointestinal: Denies: Abdominal Pain, Nausea, Vomiting Genitourinary: Reports: Incontinence. Denies: Dysuria, Retention Gynecological: Denies: Breast symptoms Musculoskeletal: Denies: Muscle pain Skin: Denies: Wounds Neurological: Denies: Balance problems, Difficulty swallowing Endocrine: Denies: Change in Body Habitus VTE Information - Inpt Only VTE Present on Admission: Yes VTE Mechan Device Prophylaxis: SCD's VTE Pharm Prophylaxis ordered?: Yes Patient Problems: Active and Suspected Problems (Last Reviewed 01/18/20 @ 08:[address] Alexa Miller MD) Cystocele (Acute) Vaginal vault prolapse (Acute) Stress incontinence (Acute) - Physical Exam Vitals/I&O's: Body Mass Index (BMI) 23.7 General: Alert, Oriented x3, Cooperative, No apparent distress HEENT: Atraumatic, Normocephalic Oral: Moist Mucosa Neck: Supple, Trachea Midline Lungs: Normal air movement, No wheeze Cardiovascular: Regular rate, Regular Rhythm Abdomen: Soft, Non Tender, Non-Distended Extremities: No clubbing Skin: No rashes Musculoskeletal: No Muscle Wasting Neurological: Cranial nerves II-XII grossly intact, Neuro grossly intact Psych/Mental Status: Normal Affect, Appropriate, Alert and oriented to time, place, person, mood and affect Laboratory Results 01/17/20 11:10: COVID-19 ([facility]) Negative Assessment/Plan All Active Problems (Last Reviewed 01/18/20 @ 08:[address] Alexa Miller MD) Cystocele (Acute) Vaginal vault prolapse (Acute) Stress incontinence (Acute) Renal calculus, left (Acute) Proceed with anterior repair, sacrospinous ligament fixation, possible dermis, Altis mid urethral sling and cystoscopy Procedure Criteria Procedure Type: Elective Procedure Essential: Yes Criteria Statement: On 10/19/2019 the [facility] ([facility]) Public Order signed by [facility] Director Lara Romano M.D., regarding the Management of Non-Essential Surgeries and Procedures for the purpose of preserving Personal Protective Equipment (PPE) and critical hospital capacity and resources within [place] went into effect as of 10/20/2019 at 5:00PM. According to the [facility] Public Order: This action will remain in full force and effect until the State of Emergency declared by the Governor no longer exists or the Director of the [facility] rescinds or modifies this Order. This [facility] order stated all non-essential or elective surgeries and procedures that utilize PPE should be delayed unless there is undue risk to the current or future health of a patient. After reviewing the aforementioned [facility] Public Order and the patient's clinical case, I have determined that the scheduled procedure meets the criteria to go forward. Risk to Patient if Procedure Delayed: Presence of severe symptoms causing an inability to perform ADL's - prolapse is interferring with daily activities, discomfort COVID Risk Discussion: The surgeon/proceduralist and patient have discussed in detail the risk of exposure to and/or potential harm posed by the COVID-19 virus with having a surgery/procedure at this time versus the risk of delaying the surgery/procedure. It is not possible to know either the risk of delaying the surgery or procedure or chance of getting an infection with perfect accuracy, but a joint decision was made between the patient and the surgeon/proceduralist to proceed at this time with the scheduled surgery/procedure as indicated on the consent form.
[2020-01-18] MEDS: Lactated Ringers 1,000 ML 100 ML IV (09:07)
--- NOTE | 2020-01-18 09:46 | OP.PCM_ITS ---
Problem List (1) Cystocele Status: Acute (2) Vaginal vault prolapse Status: Acute (3) Stress incontinence Status: Acute Report of Operation Date of Procedure: 01/18/20 Pre-Operative Diagnosis: cystocele, vaginal vault prolapse, stress urinary incontinence Post-Operative Diagnosis: cystocele, stress urinary incontinence, no vault prolapse Surgery/Procedure Performed:: anterior repair, perineoplasty, suprapubic midurethral sling, cystoscopy and bilateral ureteral catheterization Type of Anesthesia:: General Estimated Blood Loss (mL): 25cc Description of Procedure: The patient is a 49-year-old female presented to the office with pelvic organ prolapse desiring intervention. She underwent cystoscopy and urodynamics. Informed consent was obtained after full discussion of risks, benefits and alternatives including the risk of COVID-19. The patient understood and desired to proceed. The patient was taken to the operating room and placed on the operating room table. Anesthesia monitored the head, neck, airway, IV access and vital signs throughout the case. Once anesthesia was appropriately administered the patient was placed into dorsal lithotomy in Trendelenburg position. The anterior vaginal wall was identified and injected submucosally for static control and hydrostatic dissection. A midline vertical incision approximately 2 cm in length was then made. Sharp and blunt dissection ensued until the pubocervical fascia was identified bilaterally. This was brought together in a 2 layer repair using interrupted 2-0 Vicryl suture. The repair was performed from the bladder neck all the way to approximately 1 cm distal to the apex which was well supported. At this time attention was turned towards the perineal body which was weak. The posterior mucosa was injected submucosally with lidocaine. An incision was made approximately 1 cm in length and the midline. Sharp dissection was performed bilaterally and the perineal body was reconstructed symmetrically with 2-0 Vicryl suture. The vaginal mucosa was closed over the repair with running interlocking Vicryl. The area of the mid urethra was identified and injected submucosally for hemostatic control and hydrostatic dissection. A 1-1/2 cm midline vertical incision was made. Sharp and blunt dissection was performed on either side of the urethra with care being taken to avoid entrance into the urethra. At this time the Altis mid urethral sling was attempted to be inserted using the trochars. On insertion on the patient's right side the sling tore at the insertion site of the suture material into the mesh. A second sling was inadvertently inserted through the vaginal mucosa and was removed. The mesh was torn during this removal. The area where the sling entered the vaginal mucosa was closed using 2-0 Vicryl. There were no further Altis slings remaining. The decision was made to proceed with a suprapubic approach Love Desara sling. A suprapubic stab incision was made on either side of the midline approximately 2 fingerbreadths from the midline and above the pubic bone. The trochars were passed through these incisions into the periurethral space bilaterally with care being taken to avoid entry into the urinary bladder and into the urethra. At this time a cystourethroscopy was performed. The patient had been given methylene blue intravenously. The bladder was full of blue urine. On full inspection there was no entry into the urinary bladder with suture, mesh or foreign body. There is no entry into the urethra either. At this time jets were waited for and not seen on either side. A whistle-tip catheter was introduced first on the patient's left side and was inserted to 20 cm without difficulty. There was no evidence of obstruction or bleeding. The process was repeated on the patient's right side with the same result. The bladder was emptied and the Ramsay catheter was replaced. The mesh was attached to the trochars and pulled into position. The plastic sheaths were removed. The mesh was positioned against the urethra without tension using a right angle clamp. The mesh was cut to the skin in the suprapubic region and these incisions were closed with Dermabond. The vaginal mucosa was then closed in running inte rlocking fashion with 2-0 Vicryl suture. The vagina was packed with Premarin cream and vaginal packing. The patient was awakened and taken to the recovery room in good condition. There were no complications during the procedure. Grafts/Implants Used: Love Desara suprapubic midurethral sling - Complications none - Admit VTE Documentation VTE Present on Admission: Yes VTE Mechan Device Prophylaxis: SCD's VTE Pharm Prophylaxis ordered?: Yes
--- NOTE | 2020-01-18 09:52 | DCINST_ITS ---
Discharge Diet: No Restrictions Discharge Activity: May Not Drive - No driving for 2 weeks. Ok to shower, no tub bathing, no swimming or hot tubs No lifting over 5 pounds, no vacuuming, no exercise, no strenuous activity, no sexual activity, no intercourse, May Shower May resume sexual activity in: 8 weeks Lifting Restrictions: 5 pounds Call your doctor if your incision/area has: Continuous Slow Oozing, Sudden Increased Bleeding, Foul Smelling Discharge Call your doctor if you observe: Fever of 101 or Higher, Inability to urinate, Inability to have a bowel movement Allergies/Adverse Reactions: Allergies Sulfa (Sulfonamide Antibiotics) Allergy (Verified 01/12/20 08:52) Hives Medications to take at Discharge Rizatriptan Benzoate [Maxalt] 10 mg PO .X1 PRN 12/26/17 meloxicam 7.5 mg tablet 7.5 mg PO DAILY 06/11/19 erenumab-aooe 70 mg/mL subcutaneous auto-injector 70 mg SC QMONTH 06/16/19 polyethylene glycol 3350 17 gram/dose oral powder 8.5 g PO DAILY g 06/16/19 rosuvastatin 5 mg tablet 5 mg PO DAILY #90 tab 07/14/19 duloxetine 30 mg capsule,delayed release sprinkle 30 mg PO BID #180 cap 10/05/19 nortriptyline 25 mg capsule 25 mg PO QHS #90 cap 10/05/19 trazodone 50 mg tablet 50 mg PO QHS PRN #30 tab 12/14/19 linaclotide 145 mcg capsule 145 mcg PO DAILY cap 12/28/19 magnesium 250 mg tablet 250 mg PO DAILY 12/28/19 melatonin 10 mg tablet 10 mg PO HS PRN 12/28/19 Doxycycline Hyclate 100 mg PO BID PRN 01/12/20 Primary Care Physician: Haylie Coley MD [Primary Care Provider] - Test Results: Test results from this visit will be discussed in further detail at your follow- up appointment, if applicable. Please Follow Up With: Alexa Miller MD When: call office for appt Proposed Discharge Date: 01/19/20
[2020-01-18] MEDS: Cefazolin 2 GM in 0.9% Normal Saline 100 ML IV (09:55)
[2020-01-18] MEDS: Lubricating Jelly 60 GM Tube 30 GM TOPICAL (10:05)
[2020-01-18] MEDS: Estrogens,Conj. 1 Tube 1 DOSE (12:04)
[2020-01-18] MEDS: Dextrose 5%-Lactated Ringers 1,000 ML 100 ML IV (14:22)
[2020-01-18] MEDS: Morphine 2 MG/ML Syringe IV (16:16)
[2020-01-18] MEDS: Ondansetron 4 MG/2 ML Vial IV (16:16)
[2020-01-18] MEDS: Rizatriptan Benzoate 10 MG Tablet PO (16:48)
[2020-01-18] MEDS: Cefazolin 1 GM/50 ML BAG IV (18:30)
--- NOTE | 2020-01-18 20:57 | NURSING ---
Pt thought that she would be able to take a [place] for pain. After I obtained the drug and went into the room, the patient started vomiting and was unable to take the [place]. Med was undone from [facility] and wasted with Irina WAYNE.
[2020-01-18] MEDS: Ketorolac 30 MG/ML Syringe IV (20:58)
[2020-01-18] MEDS: proMETHazine 25 MG/ML Syringe 12.5 MG IV (20:59)
[2020-01-18] MEDS: Nortriptyline 25 MG Capsule PO (23:00)
[2020-01-18] MEDS: DULoxetine Hcl 30 MG Capsule PO (23:00)
[2020-01-18] MEDS: HYDROcodone Bitartrate/Apap 5/325 Tablet PO (23:03)
[2020-01-19] MEDS: Dextrose 5%-Lactated Ringers 1,000 ML 100 ML IV (01:00)
[2020-01-19] MEDS: Cefazolin 1 GM/50 ML BAG IV (02:10)
[2020-01-19 02:12] VITALS: BP 115/57; PULSE 93; RESP 16; TEMP 36.8; O2SAT 95
[2020-01-19] MEDS: Morphine 2 MG/ML Syringe IV ×2 (02:23→09:21)
[2020-01-19 05:58] VITALS: BP 117/53; PULSE 89; RESP 16; TEMP 36.9; O2SAT 94
[2020-01-19] MEDS: HYDROcodone Bitartrate/Apap 5/325 Tablet PO (06:07)
[2020-01-19] MEDS: Enoxaparin 40 MG/0.4 ML Syringe SC (06:08)
--- NOTE | 2020-01-19 06:31 | PCM.PN.BLA ---
Progress Note Had migraine yesterday, better today. Only had jello due to migraine with nausea. AFVSS abdomen soft urine clear yellow huerta and vaginal packing removed A/P POD #1 pelvic floor reconstruction with sling and cystoscopy trial of void supportive care ambulation home later today STROKE Vital Signs/Narrative: Vital Signs Temp Pulse Resp BP Pulse Ox 01/19/20 05:58 98.4 F 89 16 117/53 L 94
[2020-01-19 07:28] VITALS: O2SAT 99
[2020-01-19] MEDS: DULoxetine Hcl 30 MG Capsule PO (09:11)
[2020-01-19] MEDS: Polyethylene Glycol 3350 17 GM PACKET 8.5 GM PO (09:11)
[2020-01-19] MEDS: Meloxicam 7.5 MG Tablet PO (09:12)
[2020-01-19 09:13] VITALS: BP 132/61; PULSE 87; RESP 18; TEMP 36.5; O2SAT 99
--- NOTE | 2020-01-19 11:20 | PHA.DC.MC ---
Pharmacy Service has performed discharge medication reconciliation and counseling for this patient. 1. CEPHALEXIN 500MG PO Q12H X 3DAYS 2. OXYCODONE/ACETAMINOPHEN 5/325MG - 2 TABLETS PO Q8H PRN PAIN X 7DAYS The patient's discharge medication list was reviewed for discrepancies and discrepancies were resolved. Home Medications Rizatriptan Benzoate [Maxalt] 10 mg PO .X1 PRN 12/26/17 meloxicam 7.5 mg tablet 7.5 mg PO DAILY 06/11/19 erenumab-aooe 70 mg/mL subcutaneous auto-injector 70 mg SC QMONTH 06/16/19 polyethylene glycol 3350 17 gram/dose oral powder 8.5 g PO DAILY g 06/16/19 rosuvastatin 5 mg tablet 5 mg PO DAILY #90 tab 07/14/19 duloxetine 30 mg capsule,delayed release sprinkle 30 mg PO BID #180 cap 10/05/19 nortriptyline 25 mg capsule 25 mg PO QHS #90 cap 10/05/19 trazodone 50 mg tablet 50 mg PO QHS PRN #30 tab 12/14/19 linaclotide 145 mcg capsule 145 mcg PO DAILY cap 12/28/19 magnesium 250 mg tablet 250 mg PO DAILY 12/28/19 melatonin 10 mg tablet 10 mg PO HS PRN 12/28/19 Doxycycline Hyclate 100 mg PO BID PRN 01/12/20 Cephalexin [Keflex] 500 mg PO Q12 3 Days #6 cap 01/18/20 Oxycodone HCl/Acetaminophen [Percocet 5/325] 2 tab PO Q8H PRN PRN 7 Days #20 tab 01/18/20 The patient was counseled on the following discharge medications and changes in medications for homegoing were reviewed. The Reason for Use, instructions for use, and potential side effects were reviewed for all new medications. The patient's questions regarding all of their medications were answered. The patient was able to verbally demonstrate an understanding of their discharge medications.
--- NOTE | 2020-01-19 12:03 | NURSING ---
Removed by Dr. Miller.
[2020-01-19 13:33] VITALS: BP 134/72; PULSE 90; RESP 16; TEMP 36.4; O2SAT 99
== END 2020-01-19 13:40 | disposition home or self-care (01) ==
LOC: SDC 10:16 → MS3 10:16
PROVIDERS: Anesthesiology; Admitting Provider Urology; PCP Internal Medicine; Referring Provider Urology; Visit Provider Urology
PROC: (CPT 57260; principal; 2020-01-18 09:35)
DX: N39.3 Stress incontinence (female) (male) (principal); N81.10 Cystocele, unspecified; F32.9 Major depressive disorder, single episode, unspecified; F41.9 Anxiety disorder, unspecified; E78.5 Hyperlipidemia, unspecified; G43.909 Migraine, unspecified, not intractable, without status migrainosus; Z79.899 Other long term (current) drug therapy; K59.09 Other constipation; K21.9 Gastro-esophageal reflux disease without esophagitis
CPT/HCPCS: 00860; 57240; 57288; 87086; 87635; 96361; 96365; 96366; 96372; 96375; 96376; 99218; 99251; G2023; J7120; C1758; G0378; G0379; G0463; J2405; Q9968; U0003

== ENCOUNTER 2020-04-18 06:53 | Day surgery (SDC) | payer OTHER, SELFPAY ==
[2020-01-18 13:58] VITALS: BMI 23.9
[2020-04-18] VITALS (7 sets, daily range): BP systolic 126–135; BP diastolic 55–73; PULSE 69–105; RESP 16–18; TEMP 36.1–36.6; O2SAT 99–100; BMI 25.1
[2020-04-18] MEDS: Lactated Ringers 1,000 ML 100 ML IV (07:39)
--- NOTE | 2020-04-18 08:09 | PCM.OPRPT ---
Problem List (1) Pelvic pain Status: Acute (2) Dyspareunia Status: Acute Report of Operation Date of Procedure: 04/18/20 Pre-Operative Diagnosis: pelvic pain, dyspareunia Post-Operative Diagnosis: same Surgery/Procedure Performed:: revision perineoplasty Type of Anesthesia:: Local MAC Special Medications: Lidocaine with epinephrine Specimen's removed: perineal mucosa Estimated Blood Loss (mL): 2cc Description of Procedure: Patient is a 50-year-old female who had a pelvic floor reconstructive procedure approximately 2 months ago. She developed significant perineal discomfort with sitting. On exam there is an area of her suture line with a skin tag evident. We discussed the risk benefits and alternatives and she desired to proceed with surgical intervention. Our discussion included the risk of COVID-19. She was taken to the operating room and placed on the operating room table. Anesthesia monitored the head, neck, airway, IV access and vital signs throughout the case. Once anesthesia was appropriately ministered the patient was placed into dorsal lithotomy position was prepped and draped in usual sterile fashion. The area was infiltrated with 1% lidocaine with epinephrine. The skin tag and a 6 adjacent 8 mm ulceration of the perineum were excised with a knife. The ulceration was sent for pathologic evaluation. These incisions were then closed with chromic suture with interrupted sutures. Bacitracin was applied. Patient was then awakened and taken to the recovery room in good condition. There were no complications during this procedure. Grafts/Implants Used: none - Complications none - Admit VTE Documentation VTE Present on Admission: Yes VTE Mechan Device Prophylaxis: SCD's VTE Pharm Prophylaxis ordered?: No Reason prophylaxis not ordered:: Treatment Not Indicated
--- NOTE | 2020-04-18 08:13 | DCINST_ITS ---
Discharge Diet: No Restrictions Discharge Activity: Return to Normal Activity, May not drive while taking narcotic pain medications., May Shower, - - may take a bath in 2 weeks May resume sexual activity in: 2 weeks Call your doctor if your incision/area has: Continuous Slow Oozing, Sudden Increased Bleeding, Increased Pain/ Swelling, Increased Redness, Foul Smelling Discharge Call your doctor if you observe: Fever of 101 or Higher, Inability to urinate, Inability to have a bowel movement Allergies/Adverse Reactions: Allergies Sulfa (Sulfonamide Antibiotics) Allergy (Verified 04/18/20 07:31) Hives Medications to take at Discharge Rizatriptan Benzoate [Maxalt] 10 mg PO .X1 PRN 12/26/17 erenumab-aooe 70 mg/mL subcutaneous auto-injector 70 mg SC QMONTH 06/16/19 polyethylene glycol 3350 17 gram/dose oral powder 8.5 g PO DAILY g 06/16/19 duloxetine 30 mg capsule,delayed release sprinkle 30 mg PO BID #180 cap 10/05/19 nortriptyline 25 mg capsule 25 mg PO QHS #90 cap 10/05/19 trazodone 50 mg tablet 50 mg PO QHS PRN #30 tab 12/14/19 linaclotide 145 mcg capsule 145 mcg PO DAILY cap 12/28/19 Cephalexin [Keflex] 500 mg PO Q12 3 Days #6 cap 04/18/20 Oxycodone HCl/Acetaminophen [Percocet 5/325] 2 tablet PO Q8H PRN PRN 7 Days #20 tablet 04/18/20 The following prescriptions were given: Cephalexin [Keflex] 500 mg PO Q12 3 Days #6 cap Transmission Status: Pending to [facility] Oxycodone HCl/Acetaminophen [Percocet 5/325] 2 tablet PO Q8H PRN PRN 7 Days #20 tablet PRN Reason: Pain Transmission Status: Sent to [facility] Primary Care Physician: Maile Wen MD [Primary Care Provider] - Test Results: Test results from this visit will be discussed in further detail at your follow-up appointment, if applicable. Please Follow Up With: Alexa Miller MD When: call office for appt in 2 weeks Proposed Discharge Date: 04/18/20
--- NOTE | 2020-04-18 08:15 | UL_PTH ---
PATIENT: CLOVER DIOR LOC: [facility] U#:[id number] AGE/SX: 50/F ROOM: RE04/18/[address]: Dr. Alexa Miller MD : 1970 BED: DIS: 04/18/2020 SPEC #: [id number] RECD: 04/18/20 09:53 STATUS: CHRISTOS HARO #: [id number] MIGUELINA: 04/18/20 08:[address]: Alexa Miller DEPT: SURGICAL PATHOLOGY RECD BY: Alvin Hawthorne ENTERED: 04/18/20 10:15 SP TYPE: ULCER OTHR DR: Dr. Maile Wen MD Tissues: ULCER Procedures: Surgery Specimen Level III HEADER OPERATION: Revision vaginal perineoplasty PRE-OP DIAGNOSIS: Perineal ulcer TISSUE SUBMITTED: Perineal ulcer MICROSCOPIC DIAGNOSIS Perineal ulcer, perineoplasty: A piece of skin with acanthosis, hyperkeratosis and reactive changes. See comment. SHANTA:bell 04/19/20 COMMENT Clinical correlation and appropriate follow up are necessary. MICROSCOPIC DESCRIPTION Slides are reviewed. GROSS DESCRIPTION Received in fixative is one container labeled with the patient's name and designated perineal ulcer. The specimen consists of a piece of comer-white skin measuring 1 x 0.2 x 0.1 cm. The entire specimen is submitted in one cassette. / SHANTA:bell 04/18/20 TC:5 CPT: 50494
[2020-04-18] MEDS: Cefazolin 2 GM in 0.9% Normal Saline 100 ML IV (08:16)
[2020-04-18] MEDS: Bacitracin 500 UNITS/GM PACKET (08:40)
== END 2020-04-18 10:29 | disposition home or self-care (01) ==
LOC: SDC 06:54 → AC 06:54
PROVIDERS: Anesthesiology; PCP Family Medicine; Referring Provider Urology; Visit Provider Urology
PROC: (CPT 56810; principal; 2020-04-18 08:05)
DX: L83 Acanthosis nigricans (principal); N90.4 Leukoplakia of vulva; N94.10 Unspecified dyspareunia; K21.9 Gastro-esophageal reflux disease without esophagitis; Z11.59 Encounter for screening for other viral diseases; R10.30 Lower abdominal pain, unspecified
CPT/HCPCS: 00400; 56810; 87635; 88304; C9803; J7120; J2405; U0003

== ENCOUNTER → 2020-05-12 | Outpatient (CLI) | payer OTHER, SELFPAY ==
[2020-04-18 07:32] VITALS: BMI 25.1
--- NOTE | 2020-05-12 14:30 | BI_ITS ---
MAMMOGRAPHY - BILATERAL SCREENING REASON FOR EXAM: Female, 50 years old. Routine annual screening examination. PERTINENT HISTORY: Non-contributory. Occasional pain along the lateral aspect of the right breast. TECHNIQUE: Digital bilateral breast edmundo (3D mammographic acquisition) in the CC and MLO projections. 2-D mediolateral oblique (MLO) and craniocaudad (CC) views of both breasts were obtained. CAD: Full Field Digital Mammography with Computer Added Detection was performed. COMPARISON: Comparison is made with prior study dated 05/07/2019 and 04/14/2018. FINDINGS: Breast Composition: The breasts are heterogeneously dense, which may obscure small masses. There are no dominant masses or suspicious calcifications. The previously seen well-defined nodular density in the mid medial portion of the left breast has decreased further in size. It presently measures 7 mm. No other significant abnormalities are identified. There has been no significant change since the prior study. BI/SCREEN MAMM (CAD) W/EDMUNDO BILAT IMPRESSION: Stable bilateral screening mammogram. Yearly follow-up mammogram recommended. (A) ASSESSMENT CATEGORY: BIRADS Category 2: Benign. A letter regarding these results will be sent to the patient by the facility within 30 days. Approximately 10% of breast cancers are not detected by mammography. A normal mammogram should not delay biopsy of a clinically suspicious abnormality. [id number] Electronically Signed: Seb Salvador, at 14:54 EDT , Service support ,
== END | disposition home or self-care (01) ==
LOC: OPBI 14:29
PROVIDERS: PCP Family Medicine; Referring Provider Obstetrics & Gynecology; Visit Provider Obstetrics & Gynecology
DX: Z12.31 Encounter for screening mammogram for malignant neoplasm of breast (principal)
CPT/HCPCS: 77063; 77067

== ENCOUNTER → 2020-05-17 | Outpatient (CLI) | payer OTHER, SELFPAY ==
[2020-04-18 07:32] VITALS: BMI 25.1
[2020-05-17 11:07] LABS: Estradiol < 11.0 pg/mL
[2020-05-18 05:07] LABS: DHEA Sulfate 63.9 ug/dL (41.2-243.7)
[2020-05-18 08:07] LABS: Sex Hormone-binding Globulin 70.8 nmol/L (17.3-125.0)
[2020-05-18 15:01] LABS: CRP, High Sensitivity Cardiac 3.83 mg/L
== END | disposition home or self-care (01) ==
LOC: WOBLAB 09:14
PROVIDERS: PCP Family Medicine; Visit Provider Obstetrics & Gynecology
DX: N95.1 Menopausal and female climacteric states (principal); Z79.890 Hormone replacement therapy
CPT/HCPCS: 36415; 82627; 82670; 84144; 84270; 84403; 86141; 82626

== ENCOUNTER → 2020-05-22 | Outpatient (CLI) | payer OTHER, SELFPAY ==
[2020-04-18 07:32] VITALS: BMI 25.1
--- NOTE | 2020-05-22 15:27 | US_ITS ---
STUDY: ULTRASOUND OF THE FEMALE PELVIS - COMPLETE REASON FOR EXAM: Female, 50 years old. Right lower quadrant pain since surgery in JANUARY. LMP: Unknown. TECHNIQUE: Transabdominal and Transvaginal TECHNICAL QUALITY: Adequate. COMPARISON: CT of the abdomen and pelvis, 04/08/2019. FINDINGS: The uterus is surgically absent. The right ovary is visualized. The right ovary measures 1.2 x 0.9 x 0.9 cm. There is no right ovarian cyst or ovarian mass. There is no visualized right adnexal mass or complex lesion. There is normal arterial and normal venous vascularity. The left ovary is nonvisualized. There is no visualized left adnexal mass or complex lesion. There is no fluid in the cul-de-sac. The pre void volume of the bladder was 289 ml. The urinary bladder appears grossly normal. Polycystic ovary disease: No. US/Pelvic (Non ) IMPRESSION: Status post hysterectomy. A small right ovary is thought visualized. Electronically Signed: Juventino Coreas DO at 21:44 EDT Tel [phone], Service support ,
== END | disposition home or self-care (01) ==
LOC: US 15:26
PROVIDERS: PCP Family Medicine; Referring Provider Obstetrics & Gynecology; Visit Provider Obstetrics & Gynecology
DX: R10.814 Left lower quadrant abdominal tenderness (principal)
CPT/HCPCS: 76856

== ENCOUNTER → 2020-06-15 09:33 | Outpatient (CLI) | payer OTHER, SELFPAY ==
[2020-04-18 07:32] VITALS: BMI 25.1
[2020-06-15 11:28] LABS: Estradiol 56.1 pg/mL
[2020-06-16 05:07] LABS: DHEA Sulfate 54.8 ug/dL (41.2-243.7)
[2020-06-16 08:47] LABS: Sex Hormone-binding Globulin 85.9 nmol/L (17.3-125.0)
== END ==
PROVIDERS: PCP Family Medicine; Visit Provider Obstetrics & Gynecology
DX: Z79.899 Other long term (current) drug therapy (principal); Z79.890 Hormone replacement therapy
CPT/HCPCS: 36415; 82627; 82670; 84144; 84270; 84403; 82626

== ENCOUNTER → 2020-08-17 08:45 | Outpatient (CLI) | payer OTHER, SELFPAY ==
[2020-04-18 07:32] VITALS: BMI 25.1
[2020-08-17 09:48] LABS: Erythrocyte Sedimentation Rate 5 mm/hr (0-30)
[2020-08-17 11:53] LABS: CRP < 2.90 mg/L (0.0-3.0); Rheumatoid Factor < 10.0 IU/mL (<15); Thyroid Stim Hormone (TSH) 2.31 uIU/mL (0.358-3.74)
[2020-08-18 12:30] LABS: ANTINUCLEAR ANTIBODIES DIRECT Negative (Negative)
== END ==
PROVIDERS: PCP Family Medicine; Referring Provider Family Medicine; Visit Provider Family Medicine
DX: G43.909 Migraine, unspecified, not intractable, without status migrainosus (principal); M25.50 Pain in unspecified joint; F51.04 Psychophysiologic insomnia
CPT/HCPCS: 36415; 84443; 85652; 86038; 86140; 86431

== ENCOUNTER → 2021-01-03 16:22 | Outpatient (CLI) | payer OTHER, SELFPAY ==
[2020-04-18 07:32] VITALS: BMI 25.1
[2021-01-03 17:21] LABS: Absolute Lymphocyte Count 3.07 X10^3/uL (0.83-4.51); Basophil# 0.05 X10^3/uL; Basophil% 0.4 % (0-1); Eosinophil# 0.11 X10^3/uL; Hemoglobin 12.3 g/dL (12.0-15.0); Lymphocyte # 3.07 X10^3/ul (0.83-4.51); Lymphocyte % 27.6 % (19-41); Mean Corp Hgb Conc 31.5 g/dL (32-36); Mean Corpuscular Hgb 28.8 pg (27.0-32.0); Mean Corpuscular Volume 91.3 fL (81-99); Mean Platelet Vol. 9.3 fl (6.2-12.0); Monocyte# 0.85 X10^3/uL; Monocyte% 7.6 % (0-10); NRBC Flagged by Analyzer 0 % (0-5); Platelet Count 300 K/mm3 (150-450); RBC Distribution Width CV 13.2 % (11.6-14.6); RBC Distribution Width SD 44.6 fl (35.1-43.9); Red Blood Count 4.27 M/mm3 (4.2-5.4); White Blood Count 11.1 K/mm3 (4.4-11.0)
[2021-01-06 07:36] LABS: H.Pylori Breath Test Negative (Negative)
== END ==
PROVIDERS: PCP Family Medicine; Visit Provider Family Medicine
DX: K21.00 Gastro-esophageal reflux disease with esophagitis, without bleeding (principal)
CPT/HCPCS: 36415; 83013; 85025

== ENCOUNTER → 2021-01-24 16:12 | Outpatient (CLI) | payer OTHER, SELFPAY ==
[2020-04-18 07:32] VITALS: BMI 25.1
--- NOTE | 2021-01-24 16:18 | RAD_ITS ---
STUDY: X-RAY CHEST REASON FOR EXAM: Female, 50 years old. CHEST PAIN R/O OBVIOUS MASS TAA TECHNIQUE: PA and lateral views of the chest. COMPARISON: None. FINDINGS: The lungs are clear and expanded. There is no demonstrated pleural abnormality. Normal size heart. Normal mediastinum and earline. Normal visualized pulmonary arteries. Normal visualized aortic arch and descending thoracic aorta. Normal visualized thoracic spine. Normal visualized ribs, clavicles, and shoulders. There is no demonstrated abnormality of the visualized soft tissue structures of the upper abdomen. RAD/Chest PA and Lateral IMPRESSION: Normal x-ray examination of the chest. Electronically Signed: Shane Devries MD at 16:43 EDT Tel , Service support ,
== END ==
PROVIDERS: PCP Family Medicine; Referring Provider Family Medicine; Visit Provider Family Medicine
DX: R07.9 Chest pain, unspecified (principal)
CPT/HCPCS: 71046

== ENCOUNTER → 2021-03-15 12:35 | Day surgery (SDC) | payer OTHER, SELFPAY ==
[2021-02-23 08:27] VITALS: BMI 24.3
[2021-03-15 12:57] VITALS: BP 114/77; PULSE 94; RESP 16; TEMP 36.6; O2SAT 100
[2021-03-15] MEDS: Lidocaine 2% Jelly 1 APPLIC Tube (12:59)
== END ==
PROVIDERS: PCP Family Medicine; Referring Provider Family Medicine; Visit Provider Surgery
PROC: F00ZJWZ Instrumental Swallowing and Oral Function Assessment using Swallowing Equipment (ICD-10-PCS; CPT 43235; principal; 2021-03-15 12:40)
DX: K21.9 Gastro-esophageal reflux disease without esophagitis (principal)
CPT/HCPCS: 91010

== ENCOUNTER 2021-03-16 08:01 | Day surgery (SDC) | payer OTHER, SELFPAY ==
[2021-02-23 08:27] VITALS: BMI 24.3
--- NOTE | 2021-03-16 08:27 | HP.PCM_ITS ---
History and Physical Date of Admission: 03/16/21 Intake Visit Reasons: Gastroesophageal reflux disease (GERD) Chief Complaint: GERD [employer] Required: No Accompanied by: Self Is patient in pain?: No (burning in throat) Allergies Sulfa (Sulfonamide Antibiotics) Allergy (Verified 02/23/21 08:29) Hives Medications rizatriptan 10 mg PO .X1 PRN 12/26/17 [History Confirmed 02/23/21] erenumab-aooe 70 mg/mL subcutaneous auto-injector 70 mg SC QMONTH 06/16/19 [History Confirmed 02/23/21] duloxetine 30 mg capsule,delayed release sprinkle 30 mg PO BID #180 cap 10/05/19 [Rx Confirmed 02/23/21] nortriptyline 25 mg capsule 25 mg PO QHS #90 cap 10/05/19 [Rx Confirmed 02/23/21] trazodone 50 mg tablet 50 mg PO QHS PRN #30 tab 12/14/19 [Rx Confirmed 02/23/21] linaclotide 145 mcg capsule 145 mcg PO DAILY cap 12/28/19 [History Confirmed 02/23/21] estradiol 0.0375 mg/24 hr semiweekly transdermal patch 1 patch TRANSDERMAL 2XW 02/23/21 [History Confirmed 02/23/21] pramipexole 0.25 mg tablet 0.25 mg PO DAILY PRN 02/23/21 [History Confirmed 02/23/21] zolpidem 5 mg tablet 2.5 mg PO QHS tab 02/23/21 [History Confirmed 02/23/21] PFSH Medical History (Updated 02/23/21 @ 08:24 by Radha Sanchez) Back problem benign mass on kidney and or bladder Breast lump GI problem History of kidney stones Osteopenia Surgical History (Updated 02/23/21 @ 08:24 by Radha Sanchez) Adhesion of stomach History of ankle surgery History of hysterectomy History of knee surgery History of tonsillectomy Hx of bladder repair surgery Family History (Updated 02/23/21 @ 08:27 by Radha Sanchez) Grandmother Colon cancer cervical Mother Myocardial infarction, Onset Age: 50 Kidney disease Father Hx of blood clots Diabetes Cancer Skin Other Melanoma Psychiatric diagnosis Substance abuse Social History (Updated 02/23/21 @ 08:24 by Radha Sanchez) Smoking Status: Never smoker second hand exposure: No alcohol intake: current alcohol intake frequency: holidays/special occasions only substance use type: does not use caffeine: Yes what type of physical activity do you participate in: bicycling and aerobics frequency: 3-4 times per week HPI HPI HPI: CLOVER DIOR, is a 51 F who presents to the office today for surgical consultation for gastroesophageal reflux disease not responding to proton pump inhibitor therapy. The patient is referred by by Dr. Maile Wen and a written copy my surgical consult recommendations will return to her. Patient states that for years she has had trouble with reflux disease. We have notes from a colonoscopy performed by Dr. Arben Cosme October 16. That showed chronic constipation and slow transit. She has tried pantoprazole without much relief. She was placed on a muscle relaxant which provide some relief but caused her too much sedation. She has tried zchm-fah-nfusber medicines like famotidine and Tums and Mylanta with variable relief. She states that she has not had breakfast this morning and and has a burning sensation all the way up her esophagus. She also notes belching problems. Her only previous abdominal surgery was a partial hysterectomy. She then stated that she required another procedure for lysis of adhesions. She has had a bladder sling and vaginal prolapse. Laboratory as of January 04, 2021 shows a white count 11.1 with hemoglobin 12.3 medi divya 39 platelet count 300,000. She has had a H. pylori breath test on January 06, 2021 which was negative. ROS General General: No weight change, appetite, fatigue, colon cancer, breast cancer or weakness HEENT HEENT: Yes eye surgery; No difficulty swallowing, eye injury, swollen glands or hoarseness Endo Endocrine: No thyroid disease, diabetes mellitus, thyroid cancer, Hair loss, heat intolerance or cold intolerance Skin Skin: No rash or changing moles Musc Musculoskeletal: No back problems, arthritis, rheumatoid arthritis, gout or joint pain Cardio Cardiovascular: Yes murmur; No pacemaker, heart disease, atrial fibrillation, high blood pressure, heart attack, heart stent, palpitations, shortness of breat with exertion or chest pain Psych Psychiatric: Yes anxiety; No depression or hearing voices Resp Respiratory: Yes shortness of breath, No sleep apnea, No cough, No COPD, No asthma, No emphysema and No wheezing Gastro Gastrointestinal: No abdominal pain, No nausea or vomiting, No diarrhea, Yes constipation, No blood in stool, Yes acid reflux, Yes hemorrhoids, No ulcers, No gallbladder problem and No black,tarry stools Issac Hematologic: No blood thinners, No blood disorders, No bleeding, No anemia and No blood clots Neuro Neurologic: No weakness Exam Const General: cooperative and comfortable Nutritional Appearance: average body habitus Orientation: alert and awake HENMT Head: normal to inspection Eyes General: appearance normal, both eyes and all related structures Neck Neck: normal visual inspection Resp Effort & Inspection: normal respiratory effort Auscultation: clear to auscultation bilaterally Cardio Rate: regular rate Rhythm: regular rhythm GI Palpation: soft and no hepatosplenomegaly Auscultation: normal bowel sounds Musc Cervical Spine: normal cervical lordosis Neuro General: patient alert and patient awake Extrem General: no calf tenderness Psych Appearance: grossly normal COVID (Procedure Consent) Procedure Criteria Procedure Criteria: Yes Elective The surgeon/proceduralist and patient have discussed in detail the risk of exposure to and/or potential harm posed by the COVID-19 virus with having a surgery/procedure at this time versus the risk of delaying the surgery/procedure. It is not possible to know either the risk of delaying the surgery or procedure or chance of getting an infection with perfect accuracy, but a joint decision was made between the patient and the surgeon/proceduralist to proceed at this time with the scheduled surgery/procedure as indicated on the consent form. Assessment and Plan Assessment and Plan (1) Gastroesophageal reflux disease: Qualifiers: Esophagitis presence: esophagitis presence not specified Qualified Code(s): K21.9 - Gastro-esophageal reflux disease without esophagitis Plan - Dr. Franklin Castillo MD: 51-year-old female with intractable reflux disease. Findings are very much consistent with GERD. She seems to be intolerant to multiple medications. She seems to be intolerant to proton pump inhibitors. I think she prefers not to be on chronic medications. With that in mind she might be a better candidate for potential surgical treatment for her reflux. I recommend to her esophagogastroduodenoscopy with [place] pH probe placement. We have discussed technique benefits risks. I believe that the benefits clearly outweigh the risks in this situation. I additionally recommend to her esophageal manometry. She may have esophageal dysfunction adding to her symptom complex in severity. Subsequently then would anticipate office follow-up to discuss testing results and the potential for surgical treatment options. Already I am thinking she might be a good candidate for hiatal hernia repair with toupet. I did discussed my thoughts regarding the benefit risk of Covid vaccination as well. I did encourage her to consider in light of the emergent variants. Copy: Dr. Maile Castillo M.D., F.A.C.S. I have re-examined the patient. There are no clinical changes since date of exam.
[2021-03-16 08:47] VITALS: BP 129/76; PULSE 100; RESP 20; TEMP 36.8; O2SAT 100; BMI 25.0
[2021-03-16] MEDS: Lactated Ringers 1,000 ML 100 ML IV (08:52)
--- NOTE | 2021-03-16 09:00 | EGD_PTH ---
PATIENT: CLOVER DIOR LOC: EN U#:[id number] AGE/SX: 51/F ROOM: RE03/16/[address]: Dr. Franklin Castillo MD : 1970 BED: DIS: 03/16/2021 SPEC #: [id number] RECD: 03/16/21 10:54 STATUS: CHRISTOS HARO #: [id number] MIGUELINA: 03/16/21 09:[address]: Franklin Castillo DEPT: SURGICAL PATHOLOGY RECD BY: Alvin Hawthorne ENTERED: 03/16/21 13:58 SP TYPE: EGD BIOPSY OT DR: Dr. Maile Wen MD Tissues: A - Gastric mucous membrane Esophagus, NOS Procedures: Surgery Specimen Level IV HEADER OPERATION: EGD ([facility], PH probe PRE-OP DIAGNOSIS: GERD TISSUE SUBMITTED: A ? Antrum biopsy for H. pylori and path, B ? Distal esophagus biopsy MICROSCOPIC DIAGNOSIS A. Gastric antrum, biopsy: Chronic gastritis. B. Distal esophagus, biopsy: Focal changes of reflux suspected. AM:bell 03/19/2021 COMMENT A. The results of immunohistochemistry for Helicobacter pylori will be reported separately ([id number]). MICROSCOPIC DESCRIPTION Slides are reviewed. GROSS DESCRIPTION A - Received in fixative is one container labeled with the patient's name and designated antrum biopsy. The specimen consists of one irregular fragment of light comer soft tissue that measures 0.1 x 0.3 x 0.1 cm. The specimen is totally submitted in one cassette. B - Received in fixative is one container labeled with the patient's name and designated distal esophagus biopsy. The specimen consists of multiple irregular fragments of light comer soft tissue that in aggregate measure 0.8 x 0.5 x 0.1 cm. The specimen is totally submitted in one cassette. / SJ:bell 03/16/21 TC:3 CPT: 22483 x2
--- NOTE | 2021-03-16 09:00 | IMM_PTH ---
PATIENT: CLOVER DIOR LOC: EN U#:[id number] AGE/SX: 51/F ROOM: RE03/16/[address]: Dr. Franklin Castillo MD : 1970 BED: DIS: 03/16/2021 SPEC #: [id number] RECD: 03/16/21 13:02 STATUS: CHRISTOS REGemini #: [id number] MIGUELINA: 03/16/21 09:[address]: Franklin Castillo DEPT: IMMUNOHISTOCHEMISTRY RECD BY: Vida Blackwood ENTERED: 03/16/21 13:03 SP TYPE: IMMUNO OTHR DR: Dr. Maile Wen MD Tissues: A - Stomach, NOS Procedures: H Pylori (initial) PHYSICIAN & INSTITUTION [place] [id number] SPECIMEN INFORMATION: Tissue Source: A ? Antrum biopsy Clinical Info: GERD Specimen Number: [id number] CPT code: 58367 METHODOLOGY: Deparaffinized sections of prefer/formalin-fixed tissue or PAP/DQ stained slides are incubated with monoclonal/polyclonal antibodies/oligonucleotide probes. Localization is made via biotin free immunoperoxidase method. Appropriate controls are performed and reacted as expected. Results on target cell population are indicated in the following table: RESULTS: ANTIBODY / CLONE RESULT Block A H Pylori (polyclonal) negative These tests were developed and their performance characteristics determined by [facility]. They may not have been cleared or approved by the U.S. Food and Drug Administration. The FDA has determined that such clearance or approval is not necessary. INTERPRETATION: A. Antrum biopsy: Negative for Helicobacter pylori organisms. AM:bell 03/19/2021
[2021-03-16 09:45] VITALS: BP 109/67; BP 129/76; PULSE 77; RESP 16; TEMP 35.9; O2SAT 100
[2021-03-16 09:50] VITALS: BP 115/65; BP 129/76; PULSE 75; RESP 16; O2SAT 100
[2021-03-16 09:55] VITALS: BP 121/74; BP 129/76; PULSE 71; RESP 16; O2SAT 100
[2021-03-16 10:00] VITALS: BP 120/74; BP 129/76; PULSE 70; RESP 16; TEMP 36.6; O2SAT 100
[2021-03-16 10:36] VITALS: BP 129/76
--- NOTE | 2021-03-19 09:53 | OP.EGD_ITS ---
Patient Name: Laxmi Atkins Procedure Date: 03/16/2021 9:15 AM Date of : 1970 Age: 51 Procedure: Upper GI endoscopy Indications: Suspected gastro-esophageal reflux disease Providers: Franklin Castillo MD Referring MD: Maile Wen Medicines: See the Anesthesia note for documentation of the administered medications Complications: No immediate complications. Procedure: Pre-Anesthesia Assessment: - Prior to the procedure, a History and Physical was performed, and patient medications and allergies were reviewed. The patient's tolerance of previous anesthesia was also reviewed. The risks and benefits of the procedure and the sedation options and risks were discussed with the patient. All questions were answered, and informed consent was obtained. Prior Anticoagulants: The patient has taken no previous anticoagulant or antiplatelet agents. ASA Grade Assessment: II - A patient with mild systemic disease. After reviewing the risks and benefits, the patient was deemed in satisfactory condition to undergo the procedure. After obtaining informed consent, the endoscope was passed under direct vision. Throughout the procedure, the patient's blood pressure, pulse, and oxygen saturations were monitored continuously. The gastroscope was introduced through the mouth, and advanced to the second part of duodenum. The upper GI endoscopy was accomplished without difficulty. The patient tolerated the procedure well. Scope In: 9:28:54 AM Scope Out: 9:38:39 AM Total Procedure Duration Time 0 hours 9 minutes 45 seconds Findings: LA Grade A (one or more mucosal breaks less than 5 mm, not extending between tops of 2 mucosal folds) esophagitis with no bleeding was found 42 cm from the incisors. Biopsies were taken with a cold forceps for histology. A small hiatal hernia was present. The entire examined stomach was normal. Biopsies were taken with a cold forceps for histology. The examined duodenum was normal. The SOSA capsule with delivery system was introduced through the mouth and advanced into the esophagus, such that the SOSA pH capsule was positioned 36 cm from the incisors, which was 6 cm proximal to the GE junction. The SOSA pH capsule was then deployed and attached to the esophageal mucosa. The delivery system was then withdrawn. Endoscopy was utilized for probe placement and diagnostic evaluation. Impression: - LA Grade A reflux esophagitis. Biopsied. - Small hiatal hernia. - Normal stomach. Biopsied. - Normal examined duodenum. - The SOSA pH capsule was deployed. Recommendation: - Discharge patient to home. - Resume previous diet. - Continue present medications. - Return to my office in 10 days. Procedure Code(s): --- Professional --- 55842, Esophagogastroduodenoscopy, flexible, transoral; with biopsy, single or multiple 71943, Esophagus, gastroesophageal reflux test; with mucosal attached telemetry pH electrode placement, recording, analysis and interpretation Diagnosis Code(s): --- Professional --- K21.0, Gastro-esophageal reflux disease with esophagitis K44.9, Diaphragmatic hernia without obstruction or gangrene CPT copyright 2017 [employer] [place] [employer]. All rights reserved. The codes documented in this report are preliminary and upon property appraiser review may be revised to meet current compliance requirements. Franklin Castillo MD 03/16/2021 9:47:35 AM This report has been signed electronically. Number of Addenda: 0 Note Initiated On: 03/16/2021 9:15 AM
--- NOTE | 2021-03-19 09:53 | OP.CCLET_ITS ---
03/19/2021 Maile Wen [place] [id number] [place] [address] Re : Upper GI endoscopy procedure for Laxmi Atkins Dear Dr. Wen This procedure was performed on Tuesday, March 16, 2021. My impressions and recommendations are as follows: Impressions : - LA Grade A reflux esophagitis. Biopsied. - Small hiatal hernia. - Normal stomach. Biopsied. - Normal examined duodenum. - The SOSA pH capsule was deployed. Recommendations : - Discharge patient to home. - Resume previous diet. - Continue present medications. - Return to my office in 10 days. My findings are described in the full procedure note, which is enclosed. If I can be of further assistance, please feel free to contact me at Doctor phone number(s): Work: . Sincerely, Franklin Castillo MD 03/16/2021 9:47:35 AM This report has been signed electronically.
== END 2021-03-16 10:45 | disposition home or self-care (01) ==
LOC: EN 08:01 → AC 08:01
PROVIDERS: PCP Family Medicine; Referring Provider Family Medicine; Visit Provider Surgery
PROC: 0DJ08ZZ Inspection of Upper Intestinal Tract, Via Natural or Artificial Opening Endoscopic (ICD-10-PCS; CPT 43235; principal; 2021-03-16 08:55)
DX: K29.50 Unspecified chronic gastritis without bleeding (principal); K44.9 Diaphragmatic hernia without obstruction or gangrene; K21.00 Gastro-esophageal reflux disease with esophagitis, without bleeding; F41.9 Anxiety disorder, unspecified; F32.9 Major depressive disorder, single episode, unspecified; E78.5 Hyperlipidemia, unspecified; Z79.899 Other long term (current) drug therapy
CPT/HCPCS: 43239; 91035; 87426; 88305; 88342; C9803; J7120; J2405

== ENCOUNTER → 2021-05-09 11:25 | Outpatient (CLI) | payer OTHER, SELFPAY | PROVIDERS: PCP Family Medicine; Referring Provider Family Medicine; Visit Provider Family Medicine | DX: U07.1 COVID-19 (principal) | CPT/HCPCS: 36415; 86769 ==

== ENCOUNTER 2021-05-16 13:11 | Observation (INO) | payer OTHER, SELFPAY ==
--- NOTE | 2021-05-14 09:56 | EKG12_ITS ---
Test Reason : PRE OP Blood Pressure : / mmHG Vent. Rate : 086 BPM Atrial Rate : 086 BPM P-R Int : 142 ms QRS Dur : 088 ms QT Int : 356 ms P-R-T Axes : 082 089 081 degrees QTc Int : 426 ms Normal sinus rhythm Normal ECG Confirmed by ANAMARIA ALVARADO, ARVIN ([id number]), videotape editor KAYDEN STEVENSON ([id number]) on 05/14/2021 1:41:43 PM Referred By: Franklin Castillo Confirmed By:ARVIN CONRAD MD
[2021-05-16] VITALS (14 sets, daily range): BP systolic 105–158; BP diastolic 49–92; PULSE 64–103; RESP 14–16; TEMP 35.7–36.9; O2SAT 97–100; BMI 24.3
[2021-05-16] MEDS: Lactated Ringers 1,000 ML 100 ML IV ×3 (06:33→11:39)
--- NOTE | 2021-05-16 06:56 | PCM.HP.BLA ---
History and Physical Date of Admission: 05/16/21 Allergies Sulfa (Sulfonamide Antibiotics) Allergy (Verified 03/29/21 14:15) Hives Medications rizatriptan 10 mg PO .X1 PRN PRN 12/26/17 [History Confirmed 03/29/21] erenumab-aooe 70 mg/mL subcutaneous auto-injector 70 mg SC QMONTH 06/16/19 [History Confirmed 03/29/21] duloxetine 30 mg capsule,delayed release sprinkle 30 mg PO BID #180 cap 10/05/19 [Rx Confirmed 03/29/21] nortriptyline 25 mg capsule 25 mg PO QHS #90 cap 10/05/19 [Rx Confirmed 03/29/21] trazodone 50 mg tablet 50 mg PO QHS PRN #30 tab 12/14/19 [Rx Confirmed 03/29/21] linaclotide 145 mcg capsule 145 mcg PO DAILY cap 12/28/19 [History Confirmed 03/29/21] estradiol 0.0375 mg/24 hr semiweekly transdermal patch 1 patch TRANSDERMAL 2XW 02/23/21 [History Confirmed 03/29/21] pramipexole 0.25 mg tablet 0.25 mg PO DAILY PRN 02/23/21 [History Confirmed 03/29/21] zolpidem 5 mg tablet 2.5 mg PO QHS tab 02/23/21 [History Confirmed 03/29/21] Is last menstrual period known: No Post menopausal: No Patient : No PFSH Medical History Anxiety Back problem benign mass on kidney and or bladder Breast lump Chest pain Gastric reflux Gastroesophageal reflux disease GI problem History of edema History of kidney stones History of stress test Kidney stones Non-smoker Osteopenia Surgical History Adhesion of stomach History of ankle surgery History of bladder suspension procedure History of cardiac catheterization History of hysterectomy History of knee surgery History of tonsillectomy Hx of bladder repair surgery Family History Grandmother Colon cancer cervical Mother Myocardial infarction, Onset Age: 50 Kidney disease Father Hx of blood clots Diabetes Cancer Skin Other Melanoma Psychiatric diagnosis Substance abuse Social History (Reviewed 08/26/21 @ 14:14 by Cassy Magallon Smoking Status: Never smoker second hand exposure: No alcohol intake: current alcohol intake frequency: holidays/special occasions only substance use type: does not use caffeine: Yes what type of physical activity do you participate in: bicycling and aerobics frequency: 3-4 times per week HPI HPI HPI: CLOVER DIOR, is a 51 F who presents to the office today for surgical follow-up of intractable gastroesophageal reflux disease. On March 16, 2021 I performed a esophagogastroduodenoscopy with biopsy. Distal reflux esophagitis was found with the Z-line at 42 cm. Small hiatal hernia present. A Campoverde pH probe was deposited. On March 15, 2021 the patient had esophageal manometry. This suggested a relatively high distal contractility integral of 5683. There were felt to be for hypercontractile swallows. There were no failed or weak or ineffective swallows. There is good bolus clearance. 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 My previous notes reflect the following history Allergies Sulfa (Sulfonamide Antibiotics) Allergy (Verified 02/23/21 08:29) Hives Medications rizatriptan 10 mg PO .X1 PRN 12/26/17 [History Confirmed 02/23/21] erenumab-aooe 70 mg/mL subcutaneous auto-injector 70 mg SC QMONTH 06/16/19 [History Confirmed 02/23/21] duloxetine 30 mg capsule,delayed release sprinkle 30 mg PO BID #180 cap 10/05/19 [Rx Confirmed 02/23/21] nortriptyline 25 mg capsule 25 mg PO QHS #90 cap 10/05/19 [Rx Confirmed 02/23/21] trazodone 50 mg tablet 50 mg PO QHS PRN #30 tab 12/14/19 [Rx Confirmed 02/23/21] linaclotide 145 mcg capsule 145 mcg PO DAILY cap 12/28/19 [History Confirmed 02/23/21] estradiol 0.0375 mg/24 hr semiweekly transdermal patch 1 patch TRANSDERMAL 2XW 02/23/21 [History Confirmed 02/23/21] pramipexole 0.25 mg tablet 0.25 mg PO DAILY PRN 02/23/21 [History Confirmed 02/23/21] zolpidem 5 mg tablet 2.5 mg PO QHS tab 02/23/21 [History Confirmed 02/23/21] PFSH Medical History (Updated 02/23/21 @ 08:24 by Radha Sanchez) Back problem benign mass on kidney and or bladder Breast lump GI problem History of kidney stones Osteopenia Surgical History (Updated 02/23/21 @ 08:24 by Radha Sanchez) Adhesion of stomach History of ankle surgery History of hysterectomy History of knee surgery History of tonsillectomy Hx of bladder repair surgery Family History (Updated 02/23/21 @ 08:27 by Radha Sanchez) Grandmother Colon cancer cervical Mother Myocardial infarction, Onset Age: 50 Kidney disease Father Hx of blood clots Diabetes Cancer Skin Other Melanoma Psychiatric diagnosis Substance abuse Social History (Updated 02/23/21 @ 08:24 by Radha Sanchez) Smoking Status: Never smoker second hand exposure: No alcohol intake: current alcohol intake frequency: holidays/special occasions only substance use type: does not use caffeine: Yes what type of physical activity do you participate in: bicycling and aerobics frequency: 3-4 times per week HPI HPI HPI: CLOVER DIOR, is a 51 F who presents to the office today for surgical consultation for gastroesophageal reflux disease not responding to proton pump inhibitor therapy. The patient is referred by by Dr. Maile Wen and a written copy my surgical consult recommendations will return to her. Patient states that for years she has had trouble with reflux disease. We have notes from a colonoscopy performed by Dr. Arben Cosme October 16. That showed chronic constipation and slow transit. She has tried pantoprazole without much relief. She was placed on a muscle relaxant which provide some relief but caused her too much sedation. She has tried zhom-dvk-rcrorlb medicines like famotidine and Tums and Mylanta with variable relief. She states that she has not had breakfast this morning and and has a burning sensation all the way up her esophagus. She also notes belching problems. Her only previous abdominal surgery was a partial hysterectomy. She then stated that she required another procedure for lysis of adhesions. She has had a bladder sling and vaginal prolapse. Laboratory as of January 04, 2021 shows a white count 11.1 with hemoglobin 12.3 medical 39 platelet count 300,000. She has had a H. pylori breath test on January 06, 2021 which was negative. ROS General General: No weight change, appetite, fatigue, colon cancer, breast cancer or weakness HEENT HEENT: Yes eye surgery; No difficulty swallowing, eye injury, swollen glands or hoarseness Endo Endocrine: No thyroid disease, diabetes mellitus, thyroid cancer, Hair loss, heat intolerance or cold intolerance Skin Skin: No rash or changing moles Musc Musculoskeletal: No back problems, arthritis, rheumatoid arthritis, gout or joint pain Cardio Cardiovascular: Yes murmur; No pacemaker, heart disease, atrial fibrillation, high blood pressure, heart attack, heart stent, palpitations, shortness of breat with exertion or chest pain Psych Psychiatric: Yes anxiety; No depression or hearing voices Resp Respiratory: Yes shortness of breath, No sleep apnea, No cough, No COPD, No asthma, No emphysema and No wheezing Gastro Gastrointestinal: No abdominal pain, No nausea or vomiting, No diarrhea, Yes constipation, No blood in stool, Yes acid reflux, Yes hemorrhoids, No ulcers, No gallbladder problem and No black,tarry stools Issac Hematologic: No blood thinners, No blood disorders, No bleeding, No anemia and No blood clots Neuro Neurologic: No weakness Exam Const General: cooperative and comfortable Nutritional Appearance: average body habitus Orientation: alert and awake [facility] Head: normal to inspection Eyes General: appearance normal, both eyes and all related structures Neck Neck: normal visual inspection Resp Effort & Inspection: normal respiratory effort Auscultation: clear to auscultation bilaterally Cardio Rate: regular rate Rhythm: regular rhythm GI Palpation: soft and no hepatosplenomegaly Auscultation: normal bowel sounds Musc Cervical Spine: normal cervical lordosis Neuro General: patient alert and patient awake Extrem General: no calf tenderness Psych Appearance: grossly normal COVID (Procedure Consent) Procedure Criteria Procedure Criteria: Yes Elective The surgeon/proceduralist and patient have discussed in detail the risk of exposure to and/or potential harm posed by the COVID-19 virus with having a surgery/procedure at this time versus the risk of delaying the surgery/procedure. It is not possible to know either the risk of delaying the surgery or procedure or chance of getting an infection with perfect accuracy, but a joint decision was made between the patient and the surgeon/proceduralist to proceed at this time with the scheduled surgery/procedure as indicated on the consent form. Assessment and Plan Assessment and Plan (1) Gastroesophageal reflux disease: Qualifiers: Esophagitis presence: esophagitis presence not specified Qualified Code(s): K21.9 - Gastro-esophageal reflux disease without esophagitis Plan - Dr. Franklin Castillo MD: 51-year-old female with intractable reflux disease. Findings are very much consistent with GERD. She seems to be intolerant to multiple medications. She seems to be intolerant to proton pump inhibitors. I think she prefers not to be on chronic medications. With that in mind she might be a better candidate for potential surgical treatment for her reflux. I recommend to her esophagogastroduodenoscopy with Campoverde pH probe placement. We have discussed technique benefits risks. I believe that the benefits clearly outweigh the risks in this situation. I additionally recommend to her esophageal manometry. She may have esophageal dysfunction adding to her symptom complex in severity. Subsequently then would anticipate office follow-up to discuss testing results and the potential for surgical treatment options. Already I am thinking she might be a good candidate for hiatal hernia repair with toupet. I did discussed my thoughts regarding the benefit risk of Covid vaccination as well. I did encourage her to consider in light of the emergent variants. Copy: Dr. Maile SMITH General General: No weight change, appetite, fatigue, colon cancer, breast cancer or weakness HEENT HEENT: Yes eye surgery; No difficulty swallowing, eye injury, swollen glands or hoarseness Endo Endocrine: No thyroid disease, diabetes mellitus, thyroid cancer, Hair loss, heat intolerance or cold intolerance Skin Skin: No rash or changing moles Musc Musculoskeletal: No back problems, arthritis, rheumatoid arthritis, gout or joint pain Cardio Cardiovascular: Yes murmur; No pacemaker, heart disease, atrial fibrillation, high blood pressure, heart attack, heart stent, palpitations, shortness of breat with exertion or chest pain Psych Psychiatric: Yes anxiety; No depression or hearing voices Resp Respiratory: Yes shortness of breath, No sleep apnea, No cough, No COPD, No asthma, No emphysema and No wheezing Gastro Gastrointestinal: No abdominal pain, No nausea or vomiting, No diarrhea, Yes constipation, No blood in stool, Yes acid reflux, Yes hemorrhoids, No ulcers, No gallbladder problem and No black,tarry stools Issac Hematologic: No blood thinners, No blood disorders, No bleeding, No anemia and No blood clots Neuro Neurologic: No weakness Assessment and Plan Plan Details Additional Comments: Today was a consultative appointment. I reviewed the findings of the biopsy showing reflux esophagitis and mild gastritis. H. pylori was negative. The pH probe study was less than convincing with essentially normal DeMeester score's. The manometry study suggesting possible jackhammer esophagus though admittedly we have seen this type a result before and when repeated the results of been more normal. Her esophageal motility appears not to be affected. The patient is very much interested in not being medication dependent. I instructed her in our 20-minute [id number] consultative appointment that in order to offer her surgical repair of her small hiatal hernia and toupet reflux surgery that I would want to be able to convince her that her symptoms of suprasternal discomfort and burning sensation in her chest would be resolved. At the completion of appointment we elected to have a trial of omeprazole 40 mg daily with then head of bed elevation not going to sleep within 2 hours of eating avoiding spicy foods with diligent taking of her medication. She had previously tried a trial of proton pump inhibitor but I believe that she was very short and can consistent with this secondary to her desire not to be on medication. The patient stated that she did do the 2-week trial of 40 mg of omeprazole. She felt that the retrosternal discomfort was markedly improved. However after the 2-week emmie she stopped taking the medication. She is rather resolved that she does not want to be dependent upon medication. With that in mind now she presents for surgical reflux surgery. She is aware that I am anticipating laparoscopic repair of her hiatal hernia with a laparoscopic toupet procedure for reflux. She presents with her today. We have discussed technique benefit risk complications alternatives. She has had an opportunity to ask questions answered. She is very much aware that this is an attempt to completely resolve her symptoms that are secondary to reflux. As she has had a good response to the medication I am very hopeful that this will resolve her concerns. Franklin Castillo M.D., F.A.C.S.
--- NOTE | 2021-05-16 07:03 | PCM.DC ---
Discharge Instructions Activity Discharge Activity: May Not Drive (for 3-5 days or while taking narcotic pain medicine.) May shower in (days): 1 Lifting Restrictions: 10 pounds Dressing / Incision Call your doctor if your incision/area has: Continuous Slow Oozing, Sudden Increased Bleeding, Increased Pain/ Swelling, Increased Redness and Foul Smelling Discharge Call your doctor if you observe: Fever of 101 or Higher Suture Line Care: Avoid Pulling/Pushing and Avoid Pinching/Bending Additional Dressing/Incision Instructions:: Change or remove dressing in 4 days. Leave steri-strips in place for 1 week. Follow Up Care Please Follow Up With: Franklin Castillo MD When: Call [phone] to make an appointment to be seen in about 10 days. Test Results: Diet and activity as per your previously provided postsurgical instructions Discharge Plan Admission Admit Date/Time: 05/16/21 13:11 Primary Reason for Your Visit: Intractable gastroesophageal reflux disease Attending Provider: Franklin Castillo Primary Care Provider: Maile Wen Discharge Orders/Prescriptions Prescriptions: New hydrocodone-acetaminophen 5-325 mg tablet 1 tab PO Q6H PRN (Reason: pain) 2 Days Qty: 6 RF: 0 Continued Aimovig Autoinjector 70 mg/mL auto-injector 70 mg SC QMONTH RF: 0 Linzess 145 mcg capsule 145 mcg PO DAILY RF: 0 nortriptyline 25 mg capsule 25 mg PO QHS Qty: 90 RF: 1 duloxetine 30 mg capsule, delayed rel sprinkle 30 mg PO BID Qty: 180 RF: 1 trazodone 50 mg tablet 50 mg PO QHS PRN (Reason: insomnia) Qty: 30 RF: 2 estradiol [Sadaf] 0.0375 mg/24 hr patch semiweekly 1 patch transdermal 2XW RF: 0 zolpidem [Ambien] 5 mg tablet 2.5 mg PO QHS RF: 0 pramipexole 0.25 mg tablet 0.25 mg PO DAILY PRN (Reason: RLS) RF: 0 rizatriptan 10 MG tablet 10 mg PO .X1 PRN PRN (Reason: migraines) RF: 0 Referrals / Follow Up: Maile Wen MD [Primary Care Provider] - Disposition Disposition (needs filled in before D/C Order can be placed): Home, Self Care
[2021-05-16] MEDS: Cefazolin 2 GM in 0.9% Normal Saline 100 ML IV (07:35)
[2021-05-16] MEDS: Lubricating Jelly 60 GM Tube 30 GM TOPICAL (07:50)
[2021-05-16] MEDS: Bupivacaine Mpf 0.5% 30 ML VIAL (07:50)
--- NOTE | 2021-05-16 10:50 | OP.PCM_ITS ---
Problems Associated Problem List Diagnoses (1) Gastroesophageal reflux disease: Report of Operation Date of Procedure: 05/16/21 Pre-Operative Diagnosis: Intractable gastroesophageal reflux disease Post-Operative Diagnosis: Same Surgery/Procedure Performed:: Laparoscopic repair of hiatal hernia with laparoscopic toupet procedure Description of Surgical Findings:: Timeout informed consent was obtained. 51-year-old female was taken to the operating placed on the table underwent general endotracheal intubation esthesia. Ancef 2 g given intermittently. She was placed in a low lithotomy position after she underwent general endotracheal ovation esthesia. Beanbag was in place. Careful buttock rolls were placed. Patient then had her abdomen sterilely prepped and draped. 0.5% Marcaine was used as a local anesthetic. Throughout the procedure total 30 cc was used. Skin sites were preanesthetized. In the right paramedial upper quadrant used a 5 mm Visiport technology to gain access to the abdomen. Clean access was obtained without difficulty. 10 mm port was placed in the left upper abdomen 2 more 5 ports in the left subcostal area and a 5 port in the epigastric area th rough the 5 port in the epigastric area a Susanne retractor was used to elevate the left lobe of the liver. The abdomen was insufflated with CO2 to a pressure of 10 mmHg measured pressure. The EG junction was identified overlying epiphrenic fascia was transected with the harmonic. Great care was taken to identify the vagus nerve fibers and preserve them. Dissected over the anterior surface of the EG junction and then mobilized the short gastrics with the harmonic scalpel hemostasis was nicely intact able to identify the left john keeping the peritoneum associated with the musculature. Was able to then identify the right john got access with the vagus nerve adjacent to the esophagus and then placed a Penny drain around the EG junction this allowed for further mobilization I was able to then circumferentially 360 degrees dissect free the mediastinal 6 cm with the distal esophagus. I had very nice length at this point. Vagus nerve carefully protected with the esophagus. I then used 0 Ethibond sutures with small pledgets and repaired the diaphragm posteriorly. 3 sutures were required. Good approximation was achieved. He is a 46 Sami bougie to test sizing. I had already freed the short gastrics I was able to wrap them the fundus of the stomach and secured the posterior portion to the repaired hiatus and then performed a almost 300 degree wrap securing the wrap portion to the esophagus epiphrenic ligament into the wrap portion of the stomach with a 2-0 Ethibond in a running fashion for approximately 3 cm approximated up to the esophagus and stomach in a running fashion. Very nice coverage was achieved. I then used the fundic portion of the stomach on the left aspect tested sizing and then in similar fashion with a 2 Ethibond approximating the stomach to the epiphrenic ligament to the esophagus and then in a running fashion over 3 cm approximately to the wall of the esophagus. I felt that the wrap was very nice and intact. I then did an upper endoscopy those notes dictated in the Purple Binderation system. It demonstrated the wrap to be nicely intact the EG junction at 42 cm scope could easily be advanced in the stomach no evidence of any stricturing. Excess fluid and air was aspirated free from the stomach using an OG tube. During the upper endoscopy there was absolutely no air in the abdomen. The liver was allowed to decompress. Right upper quadrant irrigated and aspirated free. The 10 mm fascia port site was closed with a grainy needle [id number] suture of 0 Vicryl. The abdomen saw the deflate of the CO2 through an antiviral valve. Skin edges were approximated with 4 Monocryl subdermal stitches. Steri-Strips Telfa OpSite dressings applied. Sponge and instrument and needle counts were reported the surgeon correct. Specimens none. Drains none. Blood loss minimal. The patient was taken to the recovery area in satisfactory addition without apparent complication It is of additional note that the Marcaine was used in a somewhat of a tap block at the end of the procedure I used the laparoscopic technique to inject in the epigastric and left subcostal area. Franklin Castillo M.D., F.A.C.S. Surgeon: Franklin Castillo Type of Anesthesia: General Anesthesiologist: Shey Hoffman
[2021-05-16] MEDS: Lidocaine 1% (30 ml sdv) 30 ML Vial (10:53)
--- NOTE | 2021-05-16 11:10 | OP.EGD_ITS ---
Patient Name: Laxmi Atkins Procedure Date: 05/16/2021 10:15 AM Date of : 1970 Age: 51 Procedure: Upper GI endoscopy Indications: Gastro-esophageal reflux disease Providers: Franklin Castillo MD Medicines: See the Anesthesia note for documentation of the administered medications Complications: No immediate complications. Procedure: Pre-Anesthesia Assessment: - Prior to the procedure, a History and Physical was performed, and patient medications and allergies were reviewed. The patient's tolerance of previous anesthesia was also reviewed. The risks and benefits of the procedure and the sedation options and risks were discussed with the patient. All questions were answered, and informed consent was obtained. Prior Anticoagulants: The patient has taken no previous anticoagulant or antiplatelet agents. ASA Grade Assessment: II - A patient with mild systemic disease. After reviewing the risks and benefits, the patient was deemed in satisfactory condition to undergo the procedure. After obtaining informed consent, the endoscope was passed under direct vision. Throughout the procedure, the patient's blood pressure, pulse, and oxygen saturations were monitored continuously. The gastroscope was introduced through the mouth, and advanced to the second part of duodenum. The upper GI endoscopy was accomplished without difficulty. The patient tolerated the procedure well. Scope In: 10:23:10 AM Scope Out: 10:31:19 AM Total Procedure Duration Time 0 hours 8 minutes 9 seconds Findings: The examined esophagus was normal. The Z-line was regular and was found 42 cm from the incisors. Coffee ground fluid was found in the gastric fundus. Evidence of a Toupet fundoplication was found in the gastric fundus. The wrap appeared intact. The examined duodenum was normal. Impression: - Normal esophagus. - Z-line regular, 42 cm from the incisors. - Coffee ground gastric fluid. - A Toupet fundoplication was found. The wrap appears intact. - Normal examined duodenum. - No specimens collected. Recommendation: - Observe patient in same day observation unit for ongoing care. - Clear liquid diet. - Continue present medications. Procedure Code(s): --- Professional --- 97849, Esophagogastroduodenoscopy, flexible, transoral; diagnostic, including collection of specimen(s) by brushing or washing, when performed (separate procedure) Diagnosis Code(s): --- Professional --- Z98.890, Other specified postprocedural states K21.9, Gastro-esophageal reflux disease without esophagitis CPT copyright 2017 [employer]. All rights reserved. The codes documented in this report are preliminary and upon hole digger operator review may be revised to meet current compliance requirements. Franklin Castillo MD 05/16/2021 11:10:17 AM This report has been signed electronically. Number of Addenda: 0 Note Initiated On: 05/16/2021 10:15 AM
[2021-05-16] MEDS: Lactated Ringers 1,000 ML 30 ML IV (15:18)
--- NOTE | 2021-05-16 16:40 | PCM.PN.SRG ---
Subjective Subjective Patient seems reasonably comfortable. Her preoperative retrosternal discomfort is not currently present. She tried some Jell-O and felt like there was some difficulty in that going down. She notes some shoulder and hip pain. Objective Data Objective Data Vital Signs: Vital Signs Temp Pulse Resp BP Pulse Ox 96.9 F L 87 16 158/85 H 100 05/16/21 14:58 05/16/21 14:58 05/16/21 14:58 05/16/21 14:58 05/16/21 14:58 Oxygen Delivery Method Room Air Weight: 174 lb 13.225 oz Body Mass Index (BMI) 24.3 Intake & Output: Intake and Output for Last 24 Hours 05/14/21 05/15/21 05/16/21 23:59 23:59 23:59 Intake Total 2109 Balance 2109 Lab / Micro Data Micro: Microbiology 05/14/21 10:00 Interface Orders SARS-CoV-2 Antigen (Rapid) - Final Assessment & Plan Assessment/Plan (1) Gastroesophageal reflux disease: QUALIFIERS: Esophagitis presence: with esophagitis Esophagitis bleeding: without hemorrhage Qualified Code(s): K21.00 - Gastro-esophageal reflux disease with esophagitis, without bleeding PLAN: Patient and feel more comfortable that she was observed overnight. Currently she is quite stable. I am pleased with her current progress. Franklin Castillo M.D., F.A.C.S.
[2021-05-16] MEDS: HYDROcodone Bitartrate/Apap 5/325 Tablet PO (17:13)
[2021-05-16] MEDS: CLARIFY ORDER NOTE (18:16)
[2021-05-16] MEDS: Zolpidem Tartrate 5 MG Tablet 2.5 MG PO (21:53)
[2021-05-16] MEDS: DULoxetine Hcl 30 MG Capsule PO (21:53)
[2021-05-17 02:00] VITALS: RESP 15
[2021-05-17 03:00] VITALS: BP 139/70; PULSE 82; RESP 15; TEMP 36.9; O2SAT 96
[2021-05-17] MEDS: HYDROcodone Bitartrate/Apap 5/325 Tablet PO ×2 (03:51→08:38)
--- NOTE | 2021-05-17 05:49 | PCM.PN.SRG ---
Subjective Subjective Patient has no complaints. Feels pressure in the epigastric area of the abdomen. No retrosternal discomfort as preoperatively. She claims that she is tolerating liquids adequately. She has had flatus. Objective Data Objective Data Vital Signs: Vital Signs Temp Pulse Resp BP Pulse Ox 98.4 F 82 15 139/70 H 96 05/17/21 03:00 05/17/21 03:00 05/17/21 03:00 05/17/21 03:00 05/17/21 03:00 Oxygen Delivery Method Room Air Weight: 174 lb 13.225 oz Body Mass Index (BMI) 24.3 Intake & Output: Intake and Output for Last 24 Hours 05/15/21 05/16/21 05/17/21 23:59 23:59 23:59 Intake Total 2110 / 2310 200 / 200 Output Total 500 / 500 Balance 1610 / 1810 200 / 200 Lab / Micro Data Micro: Microbiology 05/14/21 10:00 Interface Orders SARS-CoV-2 Antigen (Rapid) - Final Physical Exam GI GI Narrative: Soft, nondistended, clean dry incisions Assessment & Plan Assessment/Plan (1) Gastroesophageal reflux disease: QUALIFIERS: Esophagitis presence: with esophagitis Esophagitis bleeding: without hemorrhage Qualified Code(s): K21.00 - Gastro-esophageal reflux disease with esophagitis, without bleeding PLAN: Patient appears to be very stable. She already has written diet and activity instructions previously provided. I anticipate discharge this a.m. Office follow-up anticipated approximately 10 days. Progress and prognosis felt to be good. Franklin Castillo M.D., F.A.C.S.
[2021-05-17 08:10] VITALS: BP 145/77; PULSE 82; RESP 16; TEMP 36.7; O2SAT 100
== END 2021-05-17 08:54 | disposition home or self-care (01) ==
LOC: SDC 14:06 → MS2 14:06
PROVIDERS: Admitting Provider Surgery; PCP Family Medicine; Referring Provider Surgery; Visit Provider Surgery
PROC: (CPT 43325; principal; 2021-05-16 07:10)
DX: K44.9 Diaphragmatic hernia without obstruction or gangrene (principal); K21.00 Gastro-esophageal reflux disease with esophagitis, without bleeding; F41.9 Anxiety disorder, unspecified; F32.A Depression, unspecified; E78.5 Hyperlipidemia, unspecified; G43.909 Migraine, unspecified, not intractable, without status migrainosus; Z79.899 Other long term (current) drug therapy
CPT/HCPCS: 00790; 43281; 87426; 93005; 99218; 99251; C9803; J7120; G0378; G0463; J2405

== ENCOUNTER 2021-12-17 12:04 | Emergency (ER) | payer OTHER, SELFPAY ==
[2021-12-17 12:05] VITALS: BP 151/87; PULSE 125; RESP 17; TEMP 35.8; O2SAT 96; BMI 23.7
[2021-12-17] MEDS: Metoclopramide 10 MG/2 ML Vial IV (12:33)
[2021-12-17] MEDS: DiphenhydrAMINE 50 MG/ML Syringe 25 MG IV (12:33)
[2021-12-17] MEDS: Ketorolac 15 MG/ML Vial IV (12:33)
--- NOTE | 2021-12-17 13:03 | EDS_ITS ---
HPI History of Present Illness Chief Complaint: Headache Detail of Chief Complaint: Throbbing right-sided headache with blurred vision Informant: patient Onset/Context/Timing Onset: Hours Context: Sudden Timing: Continuous Quality -Headache: Positive for Throbbing and Tightness Location: Right-sided and predominantly behind the right eye Current Severity: Severe Maximum Severity: Severe Worsened by: Light Relieved by: Nothing Associated Symptoms/Injury Associated Symptoms: Positive for Nausea, Blurred Vision (Monocular, right) and Photophobia; Negative for Fever, Vomiting, Sore Throat, Sinus Pressure, Numbness, Tingling, Preceding Aura and Visual Loss Injury - RODRIGUEZ: Negative for Direct Trauma Narrative Narrative: Patient is a 51-year-old woman with history of migraine headaches. She has had a CAT scan and CTA in the past. CT was 2 to 3 years ago. There is no evidence of aneurysm. There is no family history of aneurysm. This occurred while she was at work. She does endorse photophobia, nausea and unilateral headache with change in vision right eye only. She denies rhinorrhea, congestion or postnasal drainage. Denies sore throat. She denies neck stiffness. She denies cardiac respiratory symptoms. She has no urologic symptoms. There is no history of trauma. She has not noted a rash. Prior similar symptoms: No Recent Illness/Hospitalization: No PFSH PFSH Medical History Anxiety Back problem benign mass on kidney and or bladder Breast lump Chest pain Chronic idiopathic constipation Gastric reflux Gastroesophageal reflux disease GI problem History of edema History of kidney stones History of stress test Kidney stones Non-smoker Osteopenia Home Medications rizatriptan 10 mg PO .X1 PRN PRN 12/26/17 [History Last Taken 05/15/21] erenumab-aooe 70 mg/mL subcutaneous auto-injector 70 mg SC QMONTH 06/16/19 [History Last Taken 05/03/21] duloxetine 30 mg capsule,delayed release sprinkle 30 mg PO BID #180 cap 10/05/19 [Rx Last Taken 05/15/21] nortriptyline 25 mg capsule 25 mg PO QHS #90 cap 10/05/19 [Rx Last Taken 05/15/21] trazodone 50 mg tablet 50 mg PO QHS PRN #30 tab 12/14/19 [Rx Last Taken 05/15/21] estradiol 0.0375 mg/24 hr semiweekly transdermal patch 1 patch TRANSDERMAL 2XW 02/23/21 [History Last Taken 05/15/21] pramipexole 0.25 mg tablet 0.25 mg PO DAILY PRN 02/23/21 [History Last Taken 05/15/21] zolpidem 5 mg tablet 2.5 mg PO QHS tab 02/23/21 [History Last Taken 05/15/21] lubiprostone 24 mcg capsule 24 mcg PO BID #60 cap 11/26/21 [Rx Last Taken Unknown] Allergy/AdvReac Type Severity Reaction Status Date / Time Sulfa (Sulfonamide Allergy Hives Verified 12/17/21 12:05 Antibiotics) Family History Grandmother Colon cancer cervical Mother Myocardial infarction, Onset Age: 50 Kidney disease Father Hx of blood clots Diabetes Cancer Skin Other Melanoma Psychiatric diagnosis Substance abuse Surgical History Adhesion of stomach History of ankle surgery History of bladder suspension procedure History of cardiac catheterization History of esophagogastroduodenoscopy (EGD) History of hysterectomy History of knee surgery History of Lola fundoplication (~05/2021) History of tonsillectomy Hx of bladder repair surgery Social History Smoking Status: Never smoker second hand exposure: No alcohol intake: current alcohol intake frequency: holidays/special occasions only substance use type: does not use caffeine: Yes what type of physical activity do you participate in: bicycling and aerobics frequency: 3-4 times per week ROS ROS ED Constitutional Constitutional ED: Denies chills, fever(s), subjective, sweats or weight loss Eyes Eyes: Reports blurry vision right and change in vision right; Denies diplopia ENT ENT ED: Denies ear pain, rhinorrhea or sore throat Cardiovascular Cardiovascular: Denies chest pain, palpitations or racing heartbeat Respiratory/Chest Respiratory/Chest: Denies cough, dyspnea, dyspnea on exertion or sputum Gastrointestinal Gastrointestinal: Reports nausea; Denies abdominal pain, constipation, diarrhea or vomiting Genitourinary Genitourinary ED: Denies dysuria, hematuria or urinary frequency Musculoskeletal Musculoskeletal: Denies arthralgias, myalgias or neck pain Integumentary Denies abscess, Abrasions or rash Neurologic Neurologic: Denies headache(s) or weakness Psychiatric Psychiatric: Denies anxiety or depression Hematologic/Lymphatic Hematologic/Lymphatic: Denies easy bleeding or easy bruising EXAM Physical Exam Const Vital Signs: 12/17/21 12:05 Temperature 96.5 F L Temperature Source Temporal Pulse Rate 125 H Respiratory Rate 17 Blood Pressure 151/87 H Blood Pressure Mean 108 Pulse Ox 96 Oxygen Delivery Method Room Air Positive well nourished and well developed General Appearance ED: well developed; Negative for cyanotic, diaphoretic, NAD or pallor HEENT Reports normocephalic and moist mucous membranes HEENT Narrative: There is no APD. atraumatic; Negative for tenderness, temporal artery tenderness or vesicular rash Face and Sinus: Negative for sinus tenderness Eyes PERRL and EOMs intact bilaterally General Eye ED: Negative for pale conjunctiva or scleral icterus Neck no lymphadenopathy, supple, no meningeal signs and no JVD Resp normal respiratory effort Cardio regular rate, regular rhythm, S1 normal heart sound, S2 normal heart sound and no murmurs GI non-tender and non-distended Auscultation: normoactive bowel sounds Palpation: soft Back/Spine no CVA tenderness Cervical Spine: Negative for cervical spine tenderness Extremity normal to inspection, full ROM and normal capillary refill Neuro oriented x3, CN's II-XII intact bilaterally and no sensory deficits noted Neuro Narrative: DTR 3+ bicep, brachialis, tricep, patella and ankle. There is no clonus. No Babinski sign. [place] Coma Scale: document GCS findings Spontaneous Obeys Commands Oriented 15 Sensorium / Orientation: awake and alert Coordination / Balance: [id number] test normal Motor Exam: strength 5/5 throughout Psych mental status grossly normal Skin General Skin Exam: elasticity normal; Negative for jaundice or pallor Lesions: no lesions Rashes: no rashes Nails: normal MDM MDM MDM Narrative Medical decision making narrative: Patient presents with abrupt ocular migraine. She was treated with IV Benadryl, Reglan and Toradol. She was reassessed at 08/06/2004. She received medicine 10 minutes ago. She states her headache has improved and is now a 6 from a 10. Patient was reassessed at 1339. She is smiling. She feels markedly better. Will discharge to home. Discharge Plan Triage Chief Complaint: Headache ED Provider: Barber Rosa Dx/Rx/DC Orders Clinical Impression: Ophthalmic migraine Instructions: ED, Migraine (Classical) Prescriptions: No Action Aimovig Autoinjector 70 mg/mL auto-injector 70 mg SC QMONTH RF: 0 nortriptyline 25 mg capsule 25 mg PO QHS Qty: 90 RF: 1 duloxetine 30 mg capsule, delayed rel sprinkle 30 mg PO BID Qty: 180 RF: 1 trazodone 50 mg tablet 50 mg PO QHS PRN (Reason: insomnia) Qty: 30 RF: 2 estradiol [Sadaf] 0.0375 mg/24 hr patch semiweekly 1 patch transdermal 2XW RF: 0 zolpidem [Ambien] 5 mg tablet 2.5 mg PO QHS RF: 0 pramipexole 0.25 mg tablet 0.25 mg PO DAILY PRN (Reason: RLS) RF: 0 lubiprostone [Amitiza] 24 mcg capsule 24 mcg PO BID Qty: 60 RF: 2 rizatriptan 10 MG tablet 10 mg PO .X1 PRN PRN (Reason: migraines) RF: 0 Primary Care Provider: Maile Wen Referrals: Maile Wen MD [Primary Care Provider] - As Needed Disposition Disposition: Home, Self Care
== END 2021-12-17 13:56 | disposition home or self-care (01) ==
PROVIDERS: Emergency Provider Emergency Medicine; PCP Family Medicine; Visit Provider Emergency Medicine
DX: G43.909 Migraine, unspecified, not intractable, without status migrainosus (principal); F41.9 Anxiety disorder, unspecified; K21.9 Gastro-esophageal reflux disease without esophagitis; K59.04 Chronic idiopathic constipation; Z79.899 Other long term (current) drug therapy
CPT/HCPCS: 96374; 96375; 99283; A4216

== ENCOUNTER → 2022-03-13 | Outpatient (CLI) | payer OTHER, SELFPAY ==
--- NOTE | 2022-03-13 07:05 | BI_ITS ---
MAMMOGRAPHY - BILATERAL SCREENING REASON FOR EXAM: Female, 52 years old. Routine annual screening examination. PERTINENT HISTORY: Non-contributory. TECHNIQUE: Digital bilateral breast edmundo (3D mammographic acquisition) in the CC and MLO projections. 2-D mediolateral oblique (MLO) and craniocaudad (CC) views of both breasts were obtained. CAD: Full Field Digital Mammography with Computer Added Detection was performed. COMPARISON: Comparison is made with prior study dated 05/12/2020 and 05/07/2019. FINDINGS: Breast Composition: The breasts are heterogeneously dense, which may obscure small masses. There are no dominant masses or suspicious calcifications. Stable 7 mm well-defined nodule in the mid medial portion of the left breast. Stable small benign-appearing bilateral axillary lymph nodes. No other significant abnormalities are identified. There has been no significant change since the prior study. BI/SCRN MAMM (CAD)W/EDMUNDO BILAT IMPRESSION: Stable bilateral screening mammogram. Yearly follow-up mammogram recommended. (A) ASSESSMENT CATEGORY: BIRADS Category 2: Benign. A letter regarding these results will be sent to the patient by the facility within 30 days. Approximately 10% of breast cancers are not detected by mammography. A normal mammogram should not delay biopsy of a clinically suspicious abnormality. [id number] Electronically Signed: Seb Salvador MD at 8:33 EDT ,
== END | disposition home or self-care (01) ==
LOC: OPBI 07:03
PROVIDERS: PCP Family Medicine; Visit Provider Family Medicine
DX: Z12.31 Encounter for screening mammogram for malignant neoplasm of breast (principal)
CPT/HCPCS: 77063; 77067

== ENCOUNTER → 2022-11-20 | Outpatient (CLI) | payer OTHER, SELFPAY ==
[2022-11-20 09:13] LABS: Estradiol 15.6 pg/mL; Thyroid Stim Hormone (TSH) 3.55 uIU/mL (0.358-3.74)
[2022-11-20 09:33] LABS: Progesterone Level < 0.21 ng/mL (See Comment)
[2022-11-21 13:07] LABS: ANTINUCLEAR ANTIBODIES DIRECT Negative (Negative)
[2022-11-22 22:07] LABS: Testosterone, % Free 0.58 % (0.50-2.80); Testosterone, Total 17 ng/dL (4-50)
== END | disposition home or self-care (01) ==
PROVIDERS: PCP Family Medicine
DX: N95.8 Other specified menopausal and perimenopausal disorders (principal); R53.83 Other fatigue; G47.00 Insomnia, unspecified; E55.9 Vitamin D deficiency, unspecified
CPT/HCPCS: 36415; 82306; 82670; 84144; 84402; 84403; 84443; 86038; 86225; 86235

== ENCOUNTER → 2023-03-07 | Outpatient (CLI) | payer OTHER, SELFPAY ==
[2023-03-07 10:31] LABS: Erythrocyte Sedimentation Rate 6 mm/hr (0-30)
[2023-03-07 10:34] LABS: Absolute Lymphocyte Count 2.31 X10^3/uL (0.83-4.51); Absolute Neutrophil Count 4.4 X10^3/uL (2.0-7.7); Basophil# 0.04 X10^3/uL; Basophil% 0.5 % (0-1); Eosinophils% 1.4 % (0-5); Hematocrit 44.7 % (37-47); Hemoglobin 14.3 g/dL (12.0-15.0); Lymphocyte # 2.31 X10^3/ul (0.83-4.51); Lymphocyte % 31.2 % (19-41); Mean Corpuscular Hgb 29.5 pg (27.0-32.0); Mean Corpuscular Volume 92.4 fL (81-99); Mean Platelet Vol. 9.2 fl (6.2-12.0); Monocyte# 0.55 X10^3/uL; Monocyte% 7.4 % (0-10); NRBC Flagged by Analyzer 0 % (0-5); Neutrophil # 4.38 X10^3/uL (2.7-7.7); Neutrophil % 59.2 % (47-70); Platelet Count 288 K/mm3 (150-450); RBC Distribution Width SD 47.5 fl (35.1-43.9); Red Blood Count 4.84 M/mm3 (4.2-5.4); White Blood Count 7.4 K/mm3 (4.4-11.0)
[2023-03-07 10:49] LABS: CRP 3.51 mg/L (0.0-3.0)
[2023-03-11 21:07] LABS: Albumin 3.9 g/dL (2.9-4.4); Alpha-1-Globulins 0.2 g/dL (0.0-0.4); Alpha-2-Globulins 0.7 g/dL (0.4-1.0); Cytoplasmic Ab (C-ANCA) <1:20 titer (Neg:<1:20); Endomysial Antibody IgA Negative (Negative); Immunoglobulin A 179 mg/dL (87-352); Immunoglobulin E 5 IU/mL (6-495); Immunoglobulin G 996 mg/dL (586-1602); Immunoglobulin M 134 mg/dL (26-217); PROEL- TOTAL PROTEIN 6.9 g/dL (6.0-8.5); Perinuclear Ab (P-ANCA) <1:20 titer (Neg:<1:20); t-Transglutaminase IgA <2 U/mL (0-3)
[2023-03-12 00:06] LABS: Anti-Centromere B Ab <0.2 AI (0.0-0.9); Anti-Chromatin <0.2 AI (0.0-0.9); Anti-Jo <0.2 AI (0.0-0.9); Anti-Scleroderma-70 AB <0.2 AI (0.0-0.9); Anti-dsDNA Ab <1 IU/mL (0-9); Beef <0.10 kU/L (Class 0); Chocolate <0.10 kU/L (Class 0); Clam <0.10 kU/L (Class 0); Codfish <0.10 kU/L (Class 0); Corn <0.10 kU/L (Class 0); Egg, White <0.10 kU/L (Class 0); Egg, Whole <0.10 kU/L (Class 0); Milk (Cow) <0.10 kU/L (Class 0); Peanut <0.10 kU/L (Class 0); Pork <0.10 kU/L (Class 0); RNP Ab 0.3 AI (0.0-0.9); SCALLOP <0.10 kU/L (Class 0); SESAME SEED <0.10 kU/L (Class 0); SJOGREN'S Anti-SS-A test < 0.2 AI (0.0-0.9); SJOGREN'S Anti-SS-B test < 0.2 AI (0.0-0.9); Shrimp <0.10 kU/L (Class 0); Smith Ab <0.2 AI (0.0-0.9); Soybean <0.10 kU/L (Class 0); Walnut, (Food) <0.10 kU/L (Class 0); Wheat <0.10 kU/L (Class 0)
== END | disposition home or self-care (01) ==
LOC: LAB 09:45
PROVIDERS: PCP Family Medicine; Referring Provider Internal Medicine Gastroenterology; Visit Provider Internal Medicine Gastroenterology
DX: K59.09 Other constipation (principal)
CPT/HCPCS: 36415; 82784; 82785; 83516; 84165; 85025; 85652; 86003; 86005; 86140; 86225; 86235; 86255; 86256; 86334

== ENCOUNTER → 2023-03-26 | Outpatient (CLI) | payer OTHER, SELFPAY ==
--- NOTE | 2023-03-26 06:03 | NM_ITS ---
CLINICAL: 53-year-old female with history of suspected clinical gastroparesis. SEMI-SOLID PHASE 99m Tc SULFUR COLLOID GASTRIC EMPTYING STUDY COMPARISON: None available FINDINGS: The patient was administered 1.2 mCi of 99m Tc sulfur colloid mixed with oatmeal and consumed per os. Image acquisitions in the anterior-posterior projections were obtained for 60 minutes. There is prompt visualization of the stomach. There is no gastroesophageal reflux identified. The T ? raw data emptying was calculated to be 41.62 minutes, (Normal: 12-56 minutes). NM/Gastric Emptying Study IMPRESSION: 1. NORMAL 99m Tc sulfur colloid semi-solid phase (oatmeal) gastric emptying imaging examination. A. There is normal and preserved semi-solid phase gastric emptying compared to normal controls. (Andres et al, J Nucl Med Tech 38: 186, 2010). Electronically Signed: Shane Camilo, at 15:29 EDT ,
== END | disposition home or self-care (01) ==
LOC: NM 06:02
PROVIDERS: PCP Family Medicine; Referring Provider Internal Medicine Gastroenterology; Visit Provider Internal Medicine Gastroenterology
DX: K59.04 Chronic idiopathic constipation (principal); R19.8 Other specified symptoms and signs involving the digestive system and abdomen
CPT/HCPCS: 78264; A9541

== ENCOUNTER → 2023-05-08 | Outpatient (CLI) | payer OTHER, SELFPAY ==
[2023-05-08 14:44] LABS: Color, Urine Yellow (Yellow); Glucose, Dipstick Normal (Normal); Ketone-Dipstick 5 mg/dl (Negative); Leukocyte Esterase-Dipstick 100 /ul (Negative); Nitrite-Dipstick Positive (Negative); Occult Blood-Urine Negative /ul (Negative); Protein-Dipstick Negative (Negative); Urine Bilirubin Dipstick Negative (Negative); Urine Clarity Sl. Cloudy (Clear); Urine Urobilinogen Normal (Normal)
== END | disposition home or self-care (01) ==
LOC: LAB 14:12
PROVIDERS: PCP Family Medicine; Referring Provider Family Medicine; Visit Provider Family Medicine
DX: R30.0 Dysuria (principal)
CPT/HCPCS: 81002; 87086; 87088; 87186

== ENCOUNTER → 2023-05-29 | Outpatient (CLI) | payer OTHER, SELFPAY ==
--- NOTE | 2023-05-29 06:40 | RAD_ITS ---
STUDY: X-RAY - THORACIC SPINE REASON FOR EXAM: Female, 53 years old. Radiculopathy, thoracic region -- -- PAIN WRAPS AROUND RT SIDE RIB AREA TECHNIQUE: 3 view(s) of the thoracic spine were obtained. COMPARISON: None. FINDINGS: Normal kyphosis of the thoracic spine. Minimal levoscoliosis of the upper thoracic spine. There is mild endplate spondylosis of the thoracic vertebrae. Normal disc space heights. The soft tissue structures are unremarkable. RAD/Thoracic Spine 3 Views IMPRESSION: Minimal levoscoliosis of the upper thoracic spine. Mild degree of disc space narrowing at multiple levels. Electronically Signed: Seb Salvador MD at 15:31 EDT ,
== END | disposition home or self-care (01) ==
LOC: RAD 06:40
PROVIDERS: PCP Family Medicine; Referring Provider Anesthesiology Pain Medicine; Visit Provider Anesthesiology Pain Medicine
DX: M51.34 Other intervertebral disc degeneration, thoracic region (principal); M54.14 Radiculopathy, thoracic region
CPT/HCPCS: 72072

== ENCOUNTER → 2023-07-03 | Outpatient (CLI) | payer OTHER, SELFPAY ==
--- NOTE | 2023-07-03 08:49 | BI_ITS ---
MAMMOGRAPHY - BILATERAL SCREENING REASON FOR EXAM: Female, 53 years old. Routine annual screening examination. PERTINENT HISTORY: Non-contributory. TECHNIQUE: Digital bilateral breast edmundo (3D mammographic acquisition) in the CC and MLO projections. 2-D mediolateral oblique (MLO) and craniocaudad (CC) views of both breasts were obtained. CAD: Full Field Digital Mammography with Computer Added Detection was performed. COMPARISON: Comparison is made with prior study done March 13, 2022 and May 12, 2020. FINDINGS: Breast Composition: The breasts are heterogeneously dense, which may obscure small masses. There are no dominant masses or suspicious calcifications. Stable small bilateral axillary lymph nodes. The previously seen well-defined nodule in the mid medial portion of left breast has decreased in size. It presently measures 3.5 mm. No other significant abnormalities are identified. There has been no significant change since the prior study. BI/SCRN MAMM (CAD)W/EDMUNDO BILAT IMPRESSION: Stable bilateral screening mammogram. Yearly follow-up mammogram recommended. (A) ASSESSMENT CATEGORY: BIRADS Category 2: Benign. A letter regarding these results will be sent to the patient by the facility within 30 days. Approximately 10% of breast cancers are not detected by mammography. A normal mammogram should not delay biopsy of a clinically suspicious abnormality. [id number] Electronically Signed: Seb Salvador MD at 12:30 EST ,
== END | disposition home or self-care (01) ==
LOC: OPBI 08:48
PROVIDERS: PCP Family Medicine; Referring Provider Family Medicine; Visit Provider Family Medicine
DX: Z12.31 Encounter for screening mammogram for malignant neoplasm of breast (principal)
CPT/HCPCS: 77063; 77067

== ENCOUNTER → 2023-07-30 | Outpatient (CLI) | payer OTHER, SELFPAY ==
--- NOTE | 2023-07-30 13:01 | MRI_ITS ---
EXAM: MR CERVICAL SPINE WITHOUT INTRAVENOUS CONTRAST CLINICAL INDICATION: CERVICAL PAIN INTO R SCAPULA TECHNIQUE: Multiplanar and multisequence MR images of the cervical spine without intravenous contrast were performed. COMPARISON: No relevant prior studies available. FINDINGS: VERTEBRAE: Unremarkable. Normal vertebral bodies and posterior elements. Normal alignment. Normal craniocervical junction and cervicothoracic junction. No spondylolisthesis. There is preservation of the normal cervical lordosis. SPINAL CORD: Unremarkable in signal and morphology. SOFT TISSUES: Unremarkable. No prevertebral soft tissue swelling. LYMPH NODES: Unremarkable. There is no cervical adenopathy. DISCS/SPINAL CANAL/NEURAL FORAMINA: C2-3: Normal disc height and morphology. Normal central canal. Foramina are patent. C3-4: Normal disc height and morphology. Normal central canal. Foramina are patent. C4-5: Normal disc height and morphology. Normal central canal. Foramina are patent. C5-6: Normal disc height and morphology. Normal central canal. Severe right foraminal stenosis due to uncinate hypertrophy. C6-7: Normal disc height and morphology. Normal central canal. Foramina are patent. C7-T1: Normal disc height and morphology. Normal central canal. Foramina are patent. MRI/Spine Cervical (Routine) IMPRESSION: No compressive disc disease or canal stenosis. C5-6 foraminal stenosis. Electronically Signed: Yue Jensen MD at 16:40 EST Reading Location ID and State: [id number] / Tel , Service support ,
== END | disposition home or self-care (01) ==
LOC: MRI 12:50
PROVIDERS: PCP Family Medicine
DX: G54.2 Cervical root disorders, not elsewhere classified (principal)
CPT/HCPCS: 72141

== ENCOUNTER 2023-08-26 11:21 | Day surgery (SDC) | payer BC, SELFPAY ==
[2023-08-26] VITALS (7 sets, daily range): BP systolic 114–142; BP diastolic 63–75; PULSE 79–88; RESP 16–18; TEMP 36.1–36.3; O2SAT 99–100; BMI 19.5
[2023-08-26] MEDS: Lactated Ringers 1,000 ML 15 ML IV (11:45)
--- NOTE | 2023-08-26 11:49 | PCM.HP.BLA ---
History and Physical Date of Admission: 08/26/23 53 F who presents to the office today for WSA established 02.23.21 with GERD that was not responsive to PPI. ? Esophageal manometry 03.15.21 hypercontractile (jackhammer) esophagus ? EGD 03.16.21 with [place] LA Grade A esophagitis; small hiatal hernia ? [place] total [place] 15.5. Day 1 [place] 13.2 upright<supine. Day 2 [place] 16.7 upright<supine ? Toupet fundoplication and EGD 05.16.21 EGD coffee ground fluid in stomach; s/p toupet fundoplication, intact. *BGI established 11.26.21 for lifelong constipation with BM occurring once every 2-3 weeks with hard stool and straining and bloating, flatulence and abdominal discomfort. Linzess previously effective. No UGI complaints. Start amitiza 24mcg BID. OV 7..23 amitiza was not covered by insurance; because of this she has not had a change in symptoms. Failed medications include Linzess 145mcg (initially helpful, then failed). Currently taking MiraLAX, probiotics QD. ? Biochemical CBC, ESR, RAST, CINTIA comp, ANCA, GAME, celiac, NIRAV without pertinent abnormality. ? CRP H3.51 ? GET 03.26.23 41.62 minutes (12-56) Contact 04.01.23 with results. BM occurring every 2-3 weeks with hard stool and incomplete evacuation.? Start Linzess 290mcg, later changed to lactulose OV 1.15.24 Linzess was ineffective; lactulose QD which she did not feel was effective and stopped taking; MiraLAX ineffective; amitiza failed. She is s/p hysterectomy 1999 but had to have a follow up one year later to address adhesions and areas in which the bowel was adhesed together; a gel was administered into her abdomen to prevent this from recurring; this surgery did not effect BM pattern. History of two vaginal births. Pelvic floor reconstruction with pelvic floor therapy in 2020. ROS Const Constitutional: No fatigue ENT ENT: No difficulty swallowing Gastro GI: Positive for bloating, constipation and excessive flatus; No abdominal pain, belching, change in bowel habits, change in stool character, coffee ground emesis, cramping, diarrhea, heartburn, difficulty swallowing, feeling full early, incontinent of stools, Vomiting blood/hematemesis, Blood in stool, loose stools, Black,tarry stools, nausea/dyspepsia, pain with swallowing, vomiting or other Musc Musculoskeletal: Positive for joint pain, back pain, stiffness and restless legs Skin Skin: No yellowing of the eye or itchy eyes Neuro Neurology: Positive for restless legs Psych Psychiatric: No anxiety and No depression Endo Endocrine: No fatigue Aller/Imm Allergy/Immunologic: No itchy eyes Issac/Lymp Hematologic/Lymphatic: No easy bleeding or easy bruising Exam Const General: cooperative, healthy appearing, well developed and well groomed Eyes Conjunctivae: conjunctival abnormality left conjunctival injection diffuse Sclera: sclerae normal Pupils: PERRL EOM: EOM intact bilaterally Resp Effort & Inspection: normal respiratory effort Psych Appearance: grossly normal and well [facility] Quality Reporting Tobacco Screening ([facility] 138) Smoking Status: Never smoker Assessment and Plan Assessment and Plan (1) Chronic idiopathic constipation: Status: Chronic Plan: We will perform a biochemical profile to make sure she does not have autoimmune disease that may be contributing to her chronic idiopathic constipation. She will also get a gastric emptying study and possibly upper GI with small bowel follow-through to evaluate her small bowel. She had a colonic transit study back in 2018 which showed severe colonic dysmotility from unknown reason. She has no family members or personal history of collagen vascular disease such as Michael-Danlos or Marfan syndrome. Her imaging was not consistent with Hirschsprung's disease. Once we have motility studies and biochemical profile hopefully be able to come up with an etiology of her severe constipation. She will undergo colonoscopy with hemorrhoid banding and biopsies of the rectum for Hirschsprung's disease. Will repeat her sits marker test to see how it looks in comparison to her sits marker test in 2018. She is okay with this plan. Orders: I have examined the patient and the H&P has been reviewed. There are no clinical changes since date of exam.
--- NOTE | 2023-08-26 12:30 | COLBX_PTH ---
PATHOLOGY RESULTS PATIENT: CLOVER DIOR LOC: EN U#:[id number] AGE/SX: 53/F ROOM: RE08/26/[address]: Dr. Jaron Sweeney DO : 1970 BED: DIS: 08/26/2023 SPEC #: [id number] RECD: 08/26/23 14:34 STATUS: CHRISTOS REGemini #: [id number] MIGUELINA: 08/26/23 12:[address]: Jaron Sweeney DEPT: SURGICAL PATHOLOGY RECD BY: Talya Dave ENTERED: 08/27/23 08:55 SP TYPE: COLON BX OTHR DR: Dr. Maile Wen MD Tissues: Rectum, NOS Procedures: Surgery Specimen Level IV HEADER OPERATION: Colonoscopy, biopsy, hemorrhoid banding PRE-OP DIAGNOSIS: Chronic idiopathic constipation TISSUE SUBMITTED: Rectal biopsy, rule out Hirschsprung's MICROSCOPIC DIAGNOSIS Rectal biopsy: Fragments of colonic mucosa, no pathologic diagnosis. See comment. SJ:bell 08/28/2023 COMMENT The specimen consists of only mucosa and underlying muscularis mucosa. Submucosa or muscularis propria is not seen to rule out Hirschsprung's disease. Correlation with clinical, endoscopic findings and appropriate follow up are necessary. Case has been reviewed in consultation with Dr. Lacey who concurs with the above diagnosis. IDC:AM MICROSCOPIC DESCRIPTION Slides are reviewed. GROSS DESCRIPTION Received in fixative is one container labeled with the patient's name and designated rectal biopsy. The specimen consists of two irregular fragments of light comer soft tissue that in aggregate measure 0.6 x 0.3 x 0.1 cm. The specimen is totally submitted in one cassette. / SHANTA:bell 08/27/2023 TC:4 CPT: 88504
--- NOTE | 2023-08-26 13:48 | OP.CCLET_ITS ---
08/26/2023 Maile Wen [place] [id number] [place] [address] Re : Colonoscopy procedure for Laxmi Atkins Dear Dr. Wen This procedure was performed on Saturday, August 26, 2023. My impressions and recommendations are as follows: Impressions : - Non-bleeding internal hemorrhoids. Banded. - The examination was otherwise normal on direct and retroflexion views. - The examined portion of the ileum was normal. - Congested mucosa in the rectum. Biopsied. Recommendations : - Discharge patient to home. - Resume previous diet. - Continue present medications. - Await pathology results. - Repeat colonoscopy in 10 years for screening purposes. My findings are described in the full procedure note, which is enclosed. If I can be of further assistance, please feel free to contact me at . Sincerely, Jaron Friend, 08/26/2023 1:47:42 PM This report has been signed electronically.
--- NOTE | 2023-08-26 13:48 | OP.COLON_ITS ---
Patient Name: Laxmi Atkins Procedure Date: 08/26/2023 1:12 PM Date of : 1970 Age: 53 Procedure: Colonoscopy Indications: Screening for colorectal malignant neoplasm Providers: Jaron Sweeney DO Referring MD: Maile Wen Medicines: Monitored Anesthesia Care Patient Profile: This is a 53 year old female. Refer to note in patient chart for documentation of history and physical. Last Colonoscopy: more than 10 years ago. Complications: No immediate complications. Procedure: Pre-Anesthesia Assessment: - Prior to the procedure, a History and Physical was performed, and patient medications and allergies were reviewed. The patient is competent. The risks and benefits of the procedure and the sedation options and risks were discussed with the patient. All questions were answered and informed consent was obtained. Patient identification and proposed procedure were verified by the physician. Mental Status Examination: normal. CV Examination: normal. Prophylactic Antibiotics: The patient does not require prophylactic antibiotics. Prior Anticoagulants: The patient has taken no anticoagulant or antiplatelet agents. ASA Grade Assessment: II - A patient with mild systemic disease. After reviewing the risks and benefits, the patient was deemed in satisfactory condition to undergo the procedure. The anesthesia plan was to use monitored anesthesia care (MAC). Immediately prior to administration of medications, the patient was re-assessed for adequacy to receive sedatives. The heart rate, respiratory rate, oxygen saturations, blood pressure, adequacy of pulmonary ventilation, and response to care were monitored throughout the procedure. The physical status of the patient was re-assessed after the procedure. After I obtained informed consent, the scope was passed under direct vision. Throughout the procedure, the patient's blood pressure, pulse, and oxygen saturations were monitored continuously. The colonoscope was introduced through the anus and advanced to the terminal ileum. The colonoscopy was performed without difficulty. The patient tolerated the procedure well. The quality of the bowel preparation was adequate. Anatomical landmarks were photographed. Scope In: 1:23:02 PM Scope Withdrawal Time 0 hours 11 minutes 27 seconds Scope Out: 1:39:55 PM Total Procedure Duration Time 0 hours 16 minutes 53 seconds Findings: The perianal and digital rectal examinations were normal. Non-bleeding internal hemorrhoids were found during retroflexion. The hemorrhoids were Grade II (internal hemorrhoids that prolapse but reduce spontaneously). The endoscope was withdrawn. A hemorrhoid was isolated with anoscopy. The ShortShot ligator was positioned over the hemorrhoid at the left lateral position. Suction was applied and one rubber band was placed over the hemorrhoid. This was checked to make certain that the muscularis was free of the band. Post-banding digital rectal exam showed band in good position. There were no complications. The exam was otherwise without abnormality on direct and retroflexion views. The terminal ileum appeared normal. An area of mildly congested mucosa was found in the rectum. Biopsies were taken with a cold forceps for histology. Verification of patient identification for the specimen was done. Estimated blood loss was minimal. Impression: - Non-bleeding internal hemorrhoids. Banded. - The examination was otherwise normal on direct and retroflexion views. - The examined portion of the ileum was normal. - Congested mucosa in the rectum. Biopsied. Recommendation: - Discharge patient to home. - Resume previous diet. - Continue present medications. - Await pathology results. - Repeat colonoscopy in 10 years for screening purposes. Procedure Code(s): --- Professional --- 00310, Colonoscopy, flexible; with biopsy, single or multiple 13530, Hemorrhoidectomy, internal, by rubber band ligation(s) CPT copyright 2021 [employer]. All rights reserved. The codes documented in this report are preliminary and upon lead software developer review may be revised to meet current compliance requirements. Jaron Sweeney DO 08/26/2023 1:47:42 PM This report has been signed electronically. Number of Addenda: 0 Note Initiated On: 08/26/2023 1:12 PM
== END 2023-08-26 14:46 | disposition home or self-care (01) ==
LOC: EN 11:21 → AC 11:22
PROVIDERS: PCP Family Medicine; Referring Provider Family Medicine; Visit Provider Internal Medicine Gastroenterology
PROC: 0DJD8ZZ Inspection of Lower Intestinal Tract, Via Natural or Artificial Opening Endoscopic (ICD-10-PCS; CPT 45378; principal; 2023-08-26 12:25)
DX: K64.1 Second degree hemorrhoids (principal); K59.04 Chronic idiopathic constipation; E78.5 Hyperlipidemia, unspecified
CPT/HCPCS: 45380; 46221; 88305; J7120; J2405

== ENCOUNTER → 2023-09-04 | Outpatient (CLI) | payer BC, SELFPAY ==
--- NOTE | 2023-09-04 06:20 | RAD_ITS ---
EXAM: XR ABDOMEN, 1 VIEW CLINICAL INDICATION: SITZ day 3 TECHNIQUE: Frontal supine view of the abdomen/pelvis. COMPARISON: No relevant prior studies available. FINDINGS: GASTROINTESTINAL TRACT: Multiple Sitz markers are noted from the cecum to the mid to distal portion of the transverse colon. Total number of Sitzmarks markers remaining is approximately 32. There is mild to moderate stool burden within the large bowel. ORGANS: No organomegaly. BONES/JOINTS: No acute abnormality. RAD/Abdomen Single View IMPRESSION: Multiple retained Sitz markers from the cecum to the mid to distal transverse colon. Electronically Signed: Martinez Greenberg MD at 9:51 EST ,
--- OUTSIDE RECORDS SUMMARY | 2023-09-04 06:26 | XMS RPT_ITS | CCD ---
Author Name Unknown Address [id number] [place] [address] Organization [facility] Care Team Providers Care Assembler Hydraulic Backhoe Name Role Phone TONYA HARPER Unavailable Unavailable ROSALINA BLANCO Unavailable Unavailable Rommel Grove DO Unavailable Behzad ALVARADO, [place] Primary Care Provider Jacobo Wen MDnah Primary Care Provider BEHZAD ESSEX Primary Care Unavailable TITO MIRELES Attending Unavailable [facility] Primary Care Unavailable TITO MIRELES Attending Unavailable [facility] Primary Care Unavailable MYRNA RICHTER Attending Unavailable [facility] Primary Care Unavailable TITO MIRELES Attending Unavailable [facility] Primary Care Unavailable TITO MIRELES Attending Unavailable Allergies Allergy Classification Reported Allergen(s) Allergy Type Date of Onset Reaction(s) Facility (1 source) Sulfonamides (Antibiotic); Translations: [SULFA (SULFONAMIDE ANTIBIOTICS)] Propensity to adverse reactions to drug (disorder) 6 [facility] Repository (1 source) sulfacetamide Drug Allergy 8 [facility] Work Phone: (19 sources) Sulfonamides (Antibiotic) Propensity to adverse reactions 2 [email or web address] Work Phone: Medications Current Medications Medication Drug Class(es) Dates Sig (Normalized) Sig (Original) Atogepant (Qulipta) 60 MG tablet (10 sources) Start: 06-06-2023 End: 06-05-2024 take 1 tablet by mouth once daily Atogepant (Qulipta) 60 MG tablet Take 1 tablet by mouth daily. 30 tablet 5 06/06/2023 06/05/2024 Active 24 hr desvenlafaxine succinate 25 mg extended release oral tablet (17 sources) Serotonin and Norepinephrine Reuptake Inhibitor Start: 12-03-2022 desvenlafaxine succinate ER 25 MG 24 hour tablet 1.5 ml fremanezumab-vfrm 150 mg/ml auto-injector (20 sources) Start: 11-12-2022 End: 12-12-2022 inject 1.5 mL by subcutaneous injection every 30 days fremanezumab (Ajovy) 225 MG/1.5ML prefilled syringe Indications: Intractable migraine with aura without status migrainosus Inject 1.5 mL (225 mg) under the skin every 30 (thirty) days. 1.5 mL 3 11/12/2022 12/11/2022 Discontinued (Duplicate order) Completed/Discontinued Medications Medication Drug Class(es) Dates Sig (Normalized) Sig (Original) Atogepant 60 MG tablet (10 sources) Start: 12-18-2022 End: 06-06-2023 take 1 tablet by mouth once daily Atogepant 60 MG tablet TAKE 1 TABLET BY MOUTH DAILY 30 tablet 5 12/18/2022 06/06/2023 Discontinued (Reorder) Problems Active Problems Problem Classification Problem Date Documented Date Episodic/Chronic Headache; including migraine (13 sources) Refractory migraine with aura; Translations: [Migraine with aura, intractable, without status migrainosus] Onset: 03-05-2023 Chronic Other acquired deformities (1 source) Other biomechanical lesions of lumbar region; Translations: [Other biomechanical lesions of lumbar region] Onset: 03-24-2018 03-24-2018 Episodic Past or Other Problems Problem Classification Problem Date Documented Da te Episodic/Chronic Unclassified (1 source) Problem Results Test Name Value Interpretation Reference Range Facil ity Vital Signs Date Time Vital Sign Value Performing Clinician Facility 08-20-2023 11:36-0500 Body height 180.3 cm Tito Mireles APRN - FORESTRY FACULTY MEMBER Work Phone: [employer] 08-20-2023 11:36-0500 Body mass index (BMI) [Ratio] 20.08 kg/m2 Tito Malavelellan JEWEL FLAT SURFACER - FORESTRY FACULTY MEMBER Work Phone: [email or web address] 08-20-2023 11:36-0500 Body weight 65.32 kg Tito Mireles JEWEL FLAT SURFACER - FORESTRY FACULTY MEMBER Work Phone: [email or web address] 08-20-2023 11:36-0500 Diastolic blood pressure 79 mm[Hg] Tito Malavelellan JEWEL FLAT SURFACER - FORESTRY FACULTY MEMBER Work Phone: [email or web address] 08-20-2023 11:36-0500 Heart rate 106 /min Tito Malavelellan JEWEL FLAT SURFACER - FORESTRY FACULTY MEMBER Work Phone: [email or web address] 08-20-2023 11:36-0500 Systolic blood pressure 118 mm[Hg] Tito Malavelellan JEWEL FLAT SURFACER - FORESTRY FACULTY MEMBER Work Phone: [email or web address] 05-28-2023 10:55-0400 Body height 180.3 cm Tito Malavelellan JEWEL FLAT SURFACER - FORESTRY FACULTY MEMBER Work Phone: [email or web address] 05-28-2023 10:55-0400 Body mass index (BMI) [Ratio] 21.84 kg/m2 Tito Malavelellan JEWEL FLAT SURFACER - FORESTRY FACULTY MEMBER Work Phone: [email or web address] 05-28-2023 10:55-0400 Body weight 71.03 kg Tito Mireles JEWEL FLAT SURFACER - FORESTRY FACULTY MEMBER Work Phone: [email or web address] 05-28-2023 10:55-0400 Diastolic blood pressure 81 mm[Hg] Tito Malavelellan JEWEL FLAT SURFACER - FORESTRY FACULTY MEMBER Work Phone: [email or web address] 05-28-2023 10:55-0400 Heart rate 97 /min Tito Thee JEWEL FLAT SURFACER - FORESTRY FACULTY MEMBER Work Phone: [email or web address] 05-28-2023 10:55-0400 Systolic blood pressure 125 mm[Hg] Tito Thee JEWEL FLAT SURFACER - FORESTRY FACULTY MEMBER Work Phone: [email or web address] 03-05-2023 11:34-0400 Body height 180.3 cm Tito Mireles JEWEL FLAT SURFACER - FORESTRY FACULTY MEMBER Work Phone: [email or web address] 03-05-2023 11:34-0400 Body mass index (BMI) [Ratio] 24.66 kg/m2 Tito Mireles JEWEL FLAT SURFACER - FORESTRY FACULTY MEMBER Work Phone: [email or web address] 03-05-2023 11:34-0400 Body weight 80.2 kg Tito Mireles JEWEL FLAT SURFACER - FORESTRY FACULTY MEMBER Work Phone: [email or web address] 03-05-2023 11:34-0400 Diastolic blood pressure 76 mm[Hg] Tito Mireles JEWEL FLAT SURFACER - FORESTRY FACULTY MEMBER Work Phone: [email or web address] 03-05-2023 11:34-0400 Heart rate 91 /min Tito Mireles JEWEL FLAT SURFACER - FORESTRY FACULTY MEMBER Work Phone: [email or web address] 03-05-2023 11:34-0400 Systolic blood pressure 107 mm[Hg] Tito Mireles JEWEL FLAT SURFACER - FORESTRY FACULTY MEMBER Work Phone: [email or web address] 12-11-2022 10:35-0400 Body mass index (BMI) [Ratio] 25.66 kg/m2 Tito Mireles JEWEL FLAT SURFACER - FORESTRY FACULTY MEMBER Work Phone: [email or web address] 12-11-2022 10:35-0400 Body weight 83.46 kg Tito Mireles JEWEL FLAT SURFACER - FORESTRY FACULTY MEMBER Work Phone: [email or web address] 12-11-2022 10:35-0400 Diastolic blood pressure 81 mm[Hg] Tito Mireles JEWEL FLAT SURFACER - FORESTRY FACULTY MEMBER Work Phone: [email or web address] 12-11-2022 10:35-0400 Heart rate 87 /min Tito Mireles JEWEL FLAT SURFACER - FORESTRY FACULTY MEMBER Work Phone: [email or web address] 12-11-2022 10:35-0400 Systolic blood pressure 123 mm[Hg] Tito Malavelellan JEWEL FLAT SURFACER - FORESTRY FACULTY MEMBER Work Phone: [email or web address] 11-12-2022 08:58-0400 Body mass index (BMI) [Ratio] 25.94 kg/m2 Myrna Richter MD Work Phone: [facility] 11-12-2022 08:58-0400 Body weight 84.37 kg Myrna Richter MD Work Phone: [facility] 11-12-2022 08:58-0400 Diastolic blood pressure 80 mm[Hg] Myrna Richter MD Work Phone: [facility] 11-12-2022 08:58-0400 Heart rate 89 /min Myrna Richter MD Work Phone: [facility] 11-12-2022 08:58-0400 Systolic blood pressure 123 mm[Hg] Myrna Richter MD Work Phone: [email or web address] NEGATED: Highlighted [id number] 09:17-0400 BMI (Body Mass Index) 22.4 kg/m2 Sharon Winklestine PHYSICAL TRAINER [facility] Work Phone: NEGATED: Highlighted [id number] 09:17-0400 BP Diastolic 71 mm[Hg] Sharon Winklestine PHYSICAL TRAINER [facility] Work Phone: NEGATED: Highlighted [id number] 09:17-0400 BP Systolic 104 mm[Hg] Sharon Winklestine PHYSICAL TRAINER [facility] Work Phone: NEGATED: Highlighted [id number] 09:17-0400 Height 180.34 cm Sharon Winklestine PHYSICAL TRAINER [facility] Work Phone: NEGATED: Highlighted [id number] 09:17-0400 Height 180 cm Sharon Winklestine PHYSICAL TRAINER [facility] Work Phone: NEGATED: Highlighted [id number] 09:17-0400 Pulse (Heart Rate) 94 /min Sharon Winklestine PHYSICAL TRAINER [facility] Work Phone: NEGATED: Highlighted [id number] 09: Weight 72.58 kg Sharon Duron LPN [facility] Work Phone: NEGATED: Highlighted [id number] 09: Weight 73 kg Sharon Duron LPN [facility] Work Phone: Encounters Encounter Date Encounter Type Care Provider Facility Start: 08-20-2023 End: 08-20-2023 ambulatory MAILE WEN [facility] Start: 08-20-2023 End: 08-20-2023 Patient encounter procedure Tito Thee JEWEL FLAT SURFACER - FORESTRY FACULTY MEMBER Work Phone: [facility] Procedures Date Procedure Procedure Detail Performing Clinician Start: 07-03-2023 Mammography Myrna heller MD Work Phone: Start: 03-13-2022 Mammography Myrna heller MD Work Phone: Start: 03-24-2018 End: 03-24-2018 Blood pressure within normal parameters - no follow-up required Rommel Grove DO Work Phone: Start: 03-24-2018 End: 03-24-2018 Current medications documented Rommel Grove DO Work Phone: Start: 03-24-2018 End: 03-24-2018 Pain assessment documented as positive - follow-up documented Rommel Grove DO Work Phone: Start: 03-24-2018 End: 03-24-2018 Tobacco non-user Rommel Grove DO Work Phone: Plan of Treatment Date Care Activity Detail Author Start: 2030 RSV Immunization aged 60 or older (1 - 1-dose 60+ series) RSV Immunization aged 60 or older (1 - 1-dose 60+ series) [facility] Start: 03-27-2027 DTaP/Tdap/Td Vaccines (2 - Td or Tdap) DTaP/Tdap/Td Vaccines (2 - Td or Tdap) [facility] Start: 07-03-2024 Screening for malignant neoplasm of breast Mammogram [facility] Start: 11-12-2023 End: 11-12-2023 Patient encounter procedure 11/12/2023 2:00 PM EDT Procedure Visit [facility] [address] [place] [id number] Tito Mireles APRN - CNP [address] [place] [address] [facility] Start: 08-20-2023 End: 08-20-2023 Patient encounter procedure 08/20/2023 11:30 AM EST Procedure Visit [facility] [address] [place] [phone] Tito Mireles APRN - CNP [address] [place] [address] [facility] Start: 05-28-2023 End: 05-28-2023 Patient encounter procedure 05/28/2023 11:00 AM EDT Procedure Visit [facility] [address] [place] [id number] Tito Mireles APRN - CNP [address] [place] [address] [facility] Start: 04-04-2023 COVID-19 Vaccine ( season) COVID-19 Vaccine ( season) [facility] Start: 04-04-2023 Influenza vaccination Influenza Vaccine (#1) [facility] Start: 03-13-2023 Screening for malignant neoplasm of breast Mammogram [facility] Start: 03-05-2023 End: 03-05-2023 Patient encounter procedure [facility] Start: 12-03-2022 End: 12-03-2022 Patient encounter procedure 12/03/2022 Procedure Visit Neurology Tito Mireles APRN - CNP [address] [place] [address] [facility] Start: 09-26-2021 COVID-19 Vaccine (3 - Booster for Pfizer series) COVID-19 Vaccine (3 - Booster for Pfizer series) [facility] Start: 09-26-2021 COVID-19 Vaccine (3 - Pfizer series) COVID-19 Vaccine (3 - Pfizer series) [facility] Start: 02-05-2020 Zoster Vaccines (1 of 2) Zoster Vaccines (1 of 2) [facility] Start: 03-24-2018 End: 03-24-2018 Bone &/joint imaging whole body Bone and or joint imaging - whole body [facility] Work Phone: Start: 03-24-2018 End: 03-24-2018 Dxa bone density study 1/> sites axial skel DXA - standard order of spine and hip; axial skeleton 1 + views [facility] Work Phone: Start: 03-24-2018 End: 03-24-2018 Unlis neurological/neuromuscu lar dx px EMG/NCT bilateral lower extremity [facility] Work Phone: Start: 03-24-2018 End: 03-24-2018 Appointment Appointment [facility] Work Phone: Start: 07-05-2009 MMR Vaccines (1 of 1 - Standard series) MMR Vaccines (1 of 1 - Standard series) [facility] Start: 02-05-2000 Screening for malignant neoplasm of cervix [facility] Start: 1991 Screening for malignant neoplasm of cervix Pap Smear [facility] Start: 02-05-1988 Diabetes mellitus screening Diabetes Screening [facility] Start: 02-05-1988 Hepatitis C screening Hepatitis C Screening [facility] Start: 1982 Depression Screening Depression Screening [facility] Start: 1970 Hepatitis B Vaccines (1 of 3 - 3-dose series) Hepatitis B Vaccines (1 of 3 - 3-dose series) [facility] Start: 1970 HIV screening HIV Screening [facility] Start: 1970 Screening for malignant neoplasm of colon [facility] Immunizations Immunization Date Immunization Notes Care Provider Fa cility 11-21-2022 influenza virus vaccine, unspecified formulation Melissa Prater [facility] 08-01-2021 Pfizer SARS-CoV-2 Vaccination Myrna Richter MD Work Phone: [facility] 07-11-2021 Pfizer SARS-CoV-2 Vaccination Myrna Richter MD Work Phone: [facility] No information available. Sharon Oliverio OBREGON [facility] Work Phone: Payers Date Payer Category Payer Private Health Insurance [id number] 2022 Private Health Insurance [id number] 2021 Unknown [employer] [id number] 2021-Present [address] [place] [address] Commercial [id number] 2021 Unknown [id number] Social History Date Type Detail Facility Tobacco smoking status NHIS Never smoked tobacco [facility] Start: 11-12-2022 End: 12-11-2022 Alcohol intake Current drinker of alcohol (finding) [facility] Start: 1970 Sex Assigned At Female [facility] Start: 11-02-2022 End: 03-05-2023 Exposure to SARS-CoV-2 (event) Not sure [facility] Start: 12-11-2022 End: 05-28-2023 History of Social function [facility] Start: 12-11-2022 End: 05-28-2023 Tobacco use panel [facility] Start: 06-26-2022 Gender identity Identifies as female gender (finding) [facility] Start: 06-26-2022 Sexual orientation Heterosexual (fin ding) [facility] Start: 03-05-2023 End: 08-20-2023 Alcohol intake Ex-drinker (finding) [facility] NEGATED: Highlighted rowStart: 03-24-2018 End: 03-24-2018 Alcohol use Never smoker [facility] Work Phone: NEGATED: Highlighted rowStart: 03-24-2018 End: 03-24-2018 Details of drug misuse behavior DRUG USE No [facility] Work Phone: NEGATED: Highlighted rowStart: 03-24-2018 End: 03-24-2018 Employment detail OCCUPATION#1 radiology [facility] Work Phone: NEGATED: Highlighted rowStart: 03-24-2018 End: 03-24-2018 Assertion Never smoker [facility] Work Phone: Clinical Notes 11-12-2022 to 08-20-2023 Tito Mireles, JEWEL FLAT SURFACER - [facility] - 08/20/2023 11:30 AM ESTTelephone Encounter - Maria Del Rosario Jaskaran, [facility] - 08/15/2023 2:57 PM ESTTelephone Encounter - Maria Del Rosario Jessica, [facility] 08/15/2023 2:57 PM EST Note Date & Type Note Facility 08-20-2023 Note DEPARTMENT OF NEUROL OGY BOTOX PROCEDURE NOTE FOR HEADACHE Date:08/20/2023 Patient: Laxmi Dior : 1970 Diagnosis: Intractable migraine with aura without status migrainosus [G43.119] Procedure: Botulinum toxin injections for migraine Prior to procedure risks, benefits, alternatives, and potential side effects were reviewed with patient. Specifically reviewed possible risk of muscle weakness of face and neck, including but not limited to ptosis. All questions were answered, patient expressed understanding, verbal consent was given for procedure. Botox was injected with the parameters below: With the patient in sitting position, she received Botox injections in the neck and skull muscles. Patient receive the following doses: 1. R Frontalis 10 units 2. L Frontalis 10 units 3. R Dairy Supplies Sales Representative 10 units 4. L Dairy Supplies Sales Representative 10 units 5. R Temporalis 30 units 6. L Temporalis 30 units 7. R Occipitalis 30 units 8. L Occipitalis 30 units 9. R Trapezious 20 units 10.L Trapezious 20 units Total units injected 200 units. Units discarded 0 units. Pt reports increase in migraines during July Her last Ajovy injection was in June 2023 Remains on Qulipta Comments: Botox is Patient Supplied [facility] [phone] [x] Pt tolerated procedure well. Pt advised to avoid exercise or strenuous physical activity for 24 hours. Post treatment expectations reviewed in detail. RIK Liriano CNP [facility] 08-20-2023 History of Presen t illness Narrative DEPARTMENT OF NEUROLOGY BOTOX PROCEDURE NOTE FOR HEADACHE Date:08/20/2023 Patient: Laxmi Dior : 1970 Diagnosis: Intractable migraine with aura without status migrainosus [G43.119] Procedure: Botulinum toxin injections for migraine Prior to procedure risks, benefits, alternatives, and potential side effects were reviewed with patient. Specifically reviewed possible risk of muscle weakness of face and neck, including but not limited to ptosis. All questions were answered, patient expressed understanding, verbal consent was given for procedure. Botox was injected with the parameters below: With the patient in sitting position, she received Botox injections in the neck and skull muscles. Patient receive the following doses: 1. R Frontalis 10 units 2. L Frontalis 10 units 3. R Dairy Supplies Sales Representative 10 units 4. L Dairy Supplies Sales Representative 10 units 5. R Temporalis 30 units 6. L Temporalis 30 units 7. R Occipitalis 30 units 8. L Occipitalis 30 units 9. R Trapezious 20 units 10.L Trapezious 20 units Total units injected 200 units. Units discarded 0 units. Pt reports increase in migraines during July Her last Ajovy injection was in June 2023 Remains on Qulipta Comments: Botox is Patient Supplied [facility] [phone] [x] Pt tolerated procedure well. Pt advised to avoid exercise or strenuous physical activity for 24 hours. Post treatment expectations reviewed in detail. RIK Liriano CNP documented in this encounter [facility] 08-15-2023 Telephone encounter Note Patient notified, thank you! [facility] 08-15-2023 Miscellaneous Notes Patient notified, thank you! Maria Del Rosario, can you please reach out to the pt to let her know. Thank you Pt messaged stating she has new insurance and that Katelyn needs a PA. She states she uploaded new insurance Thank you! documented in this encounter [email or web address] 08-15-2023 Telephone encounter Note Maria Del Rosario, can you please reach out to the pt to let her know. Thank you [email or web address] 08-08-2023 Telephone encounter Note Pt messaged stating she has new insurance and that Katelyn needs a PA. She states she uploaded new insurance Thank you! [email or web address] 08-08-2023 Miscellaneous Notes Pt messaged stating she has new insurance and that Katelyn needs a PA. She states she uploaded new insurance Thank you! documented in this encounter [email or web address] 08-07-2023 Telephone encounter Note Last ov- 05/28/23 Next ov- 08/20/23 [email or web address] 08-07-2023 Miscellaneous Notes Last ov- 05/28/23 Next ov- 08/20/23 documented in this encounter [facility] 05-28-2023 Note DEPARTMENT OF NEUROL OGY BOTOX PROCEDURE NOTE FOR HEADACHE Date: 05/28/2023 Patient: Laxmi Dior : 1970 Diagnosis: Intractable migraine with aura without status migrainosus [G43.119] Procedure: Botulinum toxin injections for migraine Prior to procedure risks, benefits, alternatives, and potential side effects were reviewed with patient. Specifically reviewed possible risk of muscle weakness of face and neck, including but not limited to ptosis. All questions were answered, patient expressed understanding, verbal consent was given for procedure. Botox was injected with the parameters below: With the patient in sitting position, she received Botox injections in the neck and skull muscles. Patient receive the following doses: 1. R Frontalis 10 units 2. L Frontalis 10 units 3. R Dairy Supplies Sales Representative 10 units 4. L Dairy Supplies Sales Representative 10 units 5. R Temporalis 30 units 6. L Temporalis 30 units 7. R Occipitalis 30 units 8. L Occipitalis 30 units 9. R Trapezious 20 units 10.L Trapezious 20 units Total units injected 200 units. Units discarded 0 units. Pt reports 50% reduction in migraines with Botox Comments: Botox is Patient Supplied [facility] [phone] [x] Pt tolerated procedure well. Pt advised to avoid exercise or strenuous physical activity for 24 hours. Post treatment expectations reviewed in detail. Tito Mireles, RIK - TRISH [facility] 05-28-2023 History of Presen t illness Narrative DEPARTMENT OF NEUROLOGY BOTOX PROCEDURE NOTE FOR HEADACHE Date: 05/28/2023 Patient: Laxmi Dior : 1970 Diagnosis: Intractable migraine with aura without status migrainosus [G43.119] Procedure: Botulinum toxin injections for migraine Prior to procedure risks, benefits, alternatives, and potential side effects were reviewed with patient. Specifically reviewed possible risk of muscle weakness of face and neck, including but not limited to ptosis. All questions were answered, patient expressed understanding, verbal consent was given for procedure. Botox was injected with the parameters below: With the patient in sitting position, she received Botox injections in the neck and skull muscles. Patient receive the following doses: 1. R Frontalis 10 units 2. L Frontalis 10 units 3. R Dairy Supplies Sales Representative 10 units 4. L Dairy Supplies Sales Representative 10 units 5. R Temporalis 30 units 6. L Temporalis 30 units 7. R Occipitalis 30 units 8. L Occipitalis 30 units 9. R Trapezious 20 units 10.L Trapezious 20 units Total units injected 200 units. Units discarded 0 units. Pt reports 50% reduction in migraines with Botox Comments: Botox is Patient Supplied [facility] [phone] [x] Pt tolerated procedure well. Pt advised to avoid exercise or strenuous physical activity for 24 hours. Post treatment expectations reviewed in detail. RIK Liriano CNP documented in this encounter [facility] 03-05-2023 Note DEPARTMENT OF NEUROL OGY BOTOX PROCEDURE NOTE FOR HEADACHE Date: 03/05/2023 Patient: Laxmi Dior : 1970 Diagnosis: Intractable migraine with aura without status migrainosus [G43.119] Procedure: Botulinum toxin injections for migraine Prior to procedure risks, benefits, alternatives, and potential side effects were reviewed with patient. Specifically reviewed possible risk of muscle weakness of face and neck, including but not limited to ptosis. All questions were answered, patient expressed understanding, verbal consent was given for procedure. Botox was injected with the parameters below: With the patient in sitting position, she received Botox injections in the neck and skull muscles. Patient receive the following doses: 1. R Frontalis 10 units 2. L Frontalis 10 units 3. R Dairy Supplies Sales Representative 10 units 4. L Dairy Supplies Sales Representative 10 units 5. R Temporalis 30 units 6. L Temporalis 30 units 7. R Occipitalis 30 units 8. L Occipitalis 30 units 9. R Trapezious 20 units 10.L Trapezious 20 units Total units injected 200 units. Units discarded 0 units. Pt reports >50% reduction in migraines with Botox Comments: Botox is Patient Supplied NDC [id number] [x] Pt tolerated procedure well. Pt advised to avoid exercise or strenuous physical activity for 24 hours. Post treatment expectations reviewed in detail. RIK Liriano CNP [facility] 08-02-2023 History of Presen t illness Narrative DEPARTMENT OF NEUROLOGY BOTOX PROCEDURE NOTE FOR HEADACHE Date: 03/05/2023 Patient: Laxmi Dior : 1970 Diagnosis: Intractable migraine with aura without status migrainosus [G43.119] Procedure: Botulinum toxin injections for migraine Prior to procedure risks, benefits, alternatives, and potential side effects were reviewed with patient. Specifically reviewed possible risk of muscle weakness of face and neck, including but not limited to ptosis. All questions were answered, patient expressed understanding, verbal consent was given for procedure. Botox was injected with the parameters below: With the patient in sitting position, she received Botox injections in the neck and skull muscles. Patient receive the following doses: 1. R Frontalis 10 units 2. L Frontalis 10 units 3. R Dairy Supplies Sales Representative 10 units 4. L Dairy Supplies Sales Representative 10 units 5. R Temporalis 30 units 6. L Temporalis 30 units 7. R Occipitalis 30 units 8. L Occipitalis 30 units 9. R Trapezious 20 units 10.L Trapezious 20 units Total units injected 200 units. Units discarded 0 units. Pt reports >50% reduction in migraines with Botox Comments: Botox is Patient Supplied [facility] [phone] [x] Pt tolerated procedure well. Pt advised to avoid exercise or strenuous physical activity for 24 hours. Post treatment expectations reviewed in detail. RIK Liriano CNP documented in this encounter [facility] 02-21-2023 Telephone encounter Note Noted [facility] 02-21-2023 Miscellaneous Notes Noted The patient has upcoming Botox appt on 03/05/2023. The Botox will be supplied by us at [facility] and delivered to the MD office on . BOTOX IS PATIENT SUPPLIED!!! # of Units to be Administered: 200 Medication: Botox 200 Dosing Schedule: every 12 weeks Prior Authorization: Approved Number of Units Approved: 200 documented in this encounter [facility] 02-20-2023 Telephone encounter Note The patient has upcoming Botox appt on 03/05/2023. The Botox will be supplied by us at [facility] and delivered to the MD office on . BOTOX IS PATIENT SUPPLIED!!! # of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
== END | disposition home or self-care (01) ==
LOC: RAD 06:19
PROVIDERS: PCP Family Medicine; Referring Provider Internal Medicine Gastroenterology; Visit Provider Internal Medicine Gastroenterology
DX: K59.04 Chronic idiopathic constipation (principal)
CPT/HCPCS: 74018

== ENCOUNTER → 2023-09-06 | Outpatient (CLI) | payer BC, SELFPAY ==
--- NOTE | 2023-09-06 09:25 | RAD_ITS ---
EXAM: XR ABDOMEN, 1 VIEW CLINICAL INDICATION: SITZ day 5 TECHNIQUE: Frontal supine view of the abdomen/pelvis. COMPARISON: 09/04/2023 FINDINGS: LOWER THORAX: No acute pathology. GASTROINTESTINAL TRACT: There are 24 Sitz markers remaining within the colon. The majority of the Sitzmarks markers are seen within the descending colon on this examination. There is moderate stool within the colon. Non-obstructive. No bowel or stomach distention. ORGANS: Unremarkable as visualized. No organomegaly. No abnormal calcifications. BONES/JOINTS: No acute pathology. SOFT TISSUES: No acute pathology. RAD/Abdomen Single View IMPRESSION: Sitz markers have moved from the previous exam and are seen predominantly within the descending colon. Electronically Signed: Jerrod Hein MD at 18:38 EST ,
--- OUTSIDE RECORDS SUMMARY | 2023-09-06 09:26 | XMS RPT_ITS | CCD ---
Author Name Unknown Address [address] [place] [address] Organization [facility] Care Team Providers Care Electrolog Operator Name Role Phone TONYA HARPER Unavailable Unavailable ROSALINA BLANCO Unavailable Unavailable Rommel Grove DO Unavailable Behzad ALVARADO, [place] Primary Care Provider Jacobo Wen MDnah Primary Care Provider [phone] BEHZAD AUBURN Primary Care Unavailable TITO MIRELES Attending Unavailable [facility] Primary Care Unavailable TITO MIRELES Attending Unavailable [facility] Primary Care Unavailable MYRNA RICHTER Attending Unavailable [facility] Primary Care Unavailable TITO MIRELES Attending Unavailable [facility] Primary Care Unavailable TITO MIRELES Attending Unavailable Allergies Allergy Classification Reported Allergen(s) Allergy Type Date of Onset Reaction(s) Facility (1 source) Sulfonamides (Antibiotic); Translations: [SULFA (SULFONAMIDE ANTIBIOTICS)] Propensity to adverse reactions to drug (disorder) 6 [facility] Repository (1 source) sulfacetamide Drug Allergy 8 [facility] [place] [facility] Work Phone: (19 sources) Sulfonamides (Antibiotic) Propensity to adverse reactions 2 [facility] Work Phone: Medications Current Medications Medication Drug [...] height 180.3 cm Tito Mireles APRN - NET DEVELOPMENT MANAGER Work Phone: [employer] 08-20-2023 11:36-0500 Body mass index (BMI) [Ratio] 20.08 kg/m2 Tito Malavelellan DIRECTOR DECISION SUPPORT - NET DEVELOPMENT MANAGER Work Phone: [facility] 08-20-2023 11:36-0500 Body weight 65.32 kg Tito Mireles DIRECTOR DECISION SUPPORT - NET DEVELOPMENT MANAGER Work Phone: [facility] 08-20-2023 11:36-0500 Diastolic blood pressure 79 mm[Hg] Tito Malavelellan DIRECTOR DECISION SUPPORT - NET DEVELOPMENT MANAGER Work Phone: [facility] 08-20-2023 11:36-0500 Heart rate 106 /min Tito Malavelellan DIRECTOR DECISION SUPPORT - NET DEVELOPMENT MANAGER Work Phone: [facility] 08-20-2023 11:36-0500 Systolic blood pressure 118 mm[Hg] Tito Malavelellan DIRECTOR DECISION SUPPORT - NET DEVELOPMENT MANAGER Work Phone: [facility] 05-28-2023 10:55-0400 Body height 180.3 cm Tito Malavelellan DIRECTOR DECISION SUPPORT - NET DEVELOPMENT MANAGER Work Phone: [facility] 05-28-2023 10:55-0400 Body mass index (BMI) [Ratio] 21.84 kg/m2 Tito Malavelellan DIRECTOR DECISION SUPPORT - NET DEVELOPMENT MANAGER Work Phone: [facility] 05-28-2023 10:55-0400 Body weight 71.03 kg Tito Mireles DIRECTOR DECISION SUPPORT - NET DEVELOPMENT MANAGER Work Phone: [facility] 05-28-2023 10:55-0400 Diastolic blood pressure 81 mm[Hg] Tito Malavelellan DIRECTOR DECISION SUPPORT - NET DEVELOPMENT MANAGER Work Phone: [facility] 05-28-2023 10:55-0400 Heart rate 97 /min Tito Thee DIRECTOR DECISION SUPPORT - NET DEVELOPMENT MANAGER Work Phone: [facility] 05-28-2023 10:55-0400 Systolic blood pressure 125 mm[Hg] Tito Thee DIRECTOR DECISION SUPPORT - NET DEVELOPMENT MANAGER Work Phone: [facility] 03-05-2023 11:34-0400 Body height 180.3 cm Tito Mireles DIRECTOR DECISION SUPPORT - NET DEVELOPMENT MANAGER Work Phone: [facility] 03-05-2023 11:34-0400 Body mass index (BMI) [Ratio] 24.66 kg/m2 Tito Mireles DIRECTOR DECISION SUPPORT - NET DEVELOPMENT MANAGER Work Phone: [facility] 03-05-2023 11:34-0400 Body weight 80.2 kg Tito Mireles DIRECTOR DECISION SUPPORT - NET DEVELOPMENT MANAGER Work Phone: [facility] 03-05-2023 11:34-0400 Diastolic blood pressure 76 mm[Hg] Tito Mireles DIRECTOR DECISION SUPPORT - NET DEVELOPMENT MANAGER Work Phone: [facility] 03-05-2023 11:34-0400 Heart rate 91 /min Tito Mireles DIRECTOR DECISION SUPPORT - NET DEVELOPMENT MANAGER Work Phone: [facility] 03-05-2023 11:34-0400 Systolic blood pressure 107 mm[Hg] Tito Mireles DIRECTOR DECISION SUPPORT - NET DEVELOPMENT MANAGER Work Phone: [facility] 12-11-2022 10:35-0400 Body mass index (BMI) [Ratio] 25.66 kg/m2 Tito Mireles DIRECTOR DECISION SUPPORT - NET DEVELOPMENT MANAGER Work Phone: [facility] 12-11-2022 10:35-0400 Body weight 83.46 kg Tito Mireles DIRECTOR DECISION SUPPORT - NET DEVELOPMENT MANAGER Work Phone: [facility] 12-11-2022 10:35-0400 Diastolic blood pressure 81 mm[Hg] Tito Mireles DIRECTOR DECISION SUPPORT - NET DEVELOPMENT MANAGER Work Phone: [facility] 12-11-2022 10:35-0400 Heart rate 87 /min Tito Mireles DIRECTOR DECISION SUPPORT - NET DEVELOPMENT MANAGER Work Phone: [facility] 12-11-2022 10:35-0400 Systolic blood pressure 123 mm[Hg] Tito Malavelellan DIRECTOR DECISION SUPPORT - NET DEVELOPMENT MANAGER Work Phone: [facility] 11-12-2022 08:58-0400 Body mass index (BMI) [Ratio] 25.94 kg/m2 Myrna Richter MD Work Phone: [facility] 11-12-2022 08:58-0400 Body weight 84.37 kg Myrna Richter MD Work Phone: [facility] 11-12-2022 08:58-0400 Diastolic blood pressure 80 mm[Hg] Myrna Richter MD Work Phone: [facility] 11-12-2022 08:58-0400 Heart rate 89 /min Myrna Richter MD Work Phone: [facility] 11-12-2022 08:58-0400 Systolic blood pressure 123 mm[Hg] Myrna Richter MD Work Phone: [facility] [employer] NEGATED: Highlighted [id number] 09:17-0400 BMI (Body Mass Index) 22.4 kg/m2 Sharon Winklestine ADOBE BLOCK MAKER [facility] Work Phone: NEGATED: Highlighted [id number] 09:17-0400 BP Diastolic 71 mm[Hg] Sharon Winklestine ADOBE BLOCK MAKER [facility] Work Phone: NEGATED: Highlighted [id number] 09:17-0400 BP Systolic 104 mm[Hg] Sharon Winklestine ADOBE BLOCK MAKER [facility] Work Phone: NEGATED: Highlighted [id number] 09:17-0400 Height 180.34 cm Sharon Winklestine ADOBE BLOCK MAKER [facility] Work Phone: NEGATED: Highlighted [id number] 09:17-0400 Height 180 cm Sharon Winklestine ADOBE BLOCK MAKER [facility] Work Phone: NEGATED: Highlighted [id number] 09:17-0400 Pulse (Heart Rate) 94 /min Sharon Winklestine ADOBE BLOCK MAKER [facility] Work Phone: NEGATED: Highlighted [id number] 09: Weight 72.58 kg Sharon Duron LPN [facility] [place] [facility] Work Phone: NEGATED: Highlighted [id number] 09: Weight 73 kg Sharon Duron LPN [facility] Work Phone: Encounters Encounter Date Encounter Type Care Provider Facility Start: 08-20-2023 End: 08-20-2023 ambulatory MAILE WEN [facility] Start: 08-20-2023 End: 08-20-2023 Patient encounter procedure Tito Thee DIRECTOR DECISION SUPPORT - NET DEVELOPMENT MANAGER Work Phone: [facility] Procedures Date Procedure Procedure [...] or older (1 - 1-dose 60+ series) [facility] Start: 03-27-2027 DTaP/Tdap/Td Vaccines (2 - Td or Tdap) DTaP/Tdap/Td Vaccines (2 - Td or Tdap) [facility] Start: 07-03-2024 Screening for malignant neoplasm of breast Mammogram [facility] Start: 11-12-2023 End: 11-12-2023 Patient encounter procedure 11/12/2023 2:00 PM EDT Procedure Visit [facility] [address] [place] [id number] iTto Mireles APRN - CNP [address] [place] [address] [facility] Start: 08-20-2023 End: 08-20-2023 Patient encounter procedure 08/20/2023 11:30 AM EST Procedure Visit [facility] [address] [place] [id number] Tito Mireles APRN - CNP [address] [place] [address] [facility] Start: 05-28-2023 End: 05-28-2023 Patient encounter procedure 05/28/2023 11:00 AM EDT Procedure Visit [facility] [address] [place] [id number] Tito Mireles APRN - CNP [address] [place] [address] [facility] Start: 04-04-2023 COVID-19 Vaccine ( season) COVID-19 Vaccine ( season) [facility] Start: 04-04-2023 Influenza vaccination Influenza Vaccine (#1) [facility] Start: 03-13-2023 Screening for malignant neoplasm of breast Mammogram [facility] Start: 03-05-2023 End: 03-05-2023 Patient encounter procedure [facility] Start: 12-03-2022 End: 12-03-2022 Patient encounter procedure 12/03/2022 Procedure Visit Neurology Tito Mireles APRN - CNP [address] [place] [address] [facility] Start: 09-26-2021 COVID-19 Vaccine (3 - Booster for Pfizer series) COVID-19 Vaccine (3 - Booster for Pfizer series) [facility] Start: 09-26-2021 COVID-19 Vaccine (3 - Pfizer series) COVID-19 Vaccine (3 - Pfizer series) [facility] Start: 02-05-2020 Zoster Vaccines (1 of 2) Zoster Vaccines (1 of 2) [facility] Start: 03-24-2018 End: 03-24-2018 Bone &/joint imaging whole body Bone and or joint imaging - whole body [facility] Work Phone: Start: 03-24-2018 End: 03-24-2018 Dxa bone density study 1/> sites axial skel DXA - standard order of spine and hip; axial skeleton 1 + views [facility] Work Phone: Start: 03-24-2018 End: 03-24-2018 Unlis neurological/neuromuscu lar dx px EMG/NCT bilateral lower extremity [facility] Work Phone: Start: 03-24-2018 End: 03-24-2018 Appointment Appointment [facility] Work Phone: Start: 07-05-2009 MMR Vaccines (1 of 1 - Standard series) MMR Vaccines (1 of 1 - Standard series) [facility] Start: 02-05-2000 Screening for malignant neoplasm of cervix [facility] Start: 1991 Screening for malignant neoplasm of cervix Pap Smear [facility] Start: 02-05-1988 Diabetes mellitus screening Diabetes Screening [facility] Start: 02-05-1988 Hepatitis C screening Hepatitis C Screening [facility] Start: 1982 Depression Screening Depression Screening [facility] Start: 1970 Hepatitis B Vaccines (1 of 3 - 3-dose series) Hepatitis B Vaccines (1 of 3 - 3-dose series) [facility] Start: 1970 HIV screening HIV Screening [facility] Start: 1970 Screening for malignant neoplasm of colon [facility] Immunizations Immunization Date Immunization Notes Care Provider Fa cility 11-21-2022 influenza virus vaccine, unspecified formulation Melissa Prater [facility] 08-01-2021 Pfizer SARS-CoV-2 Vaccination Myrna Richter MD Work Phone: [facility] 07-11-2021 Pfizer SARS-CoV-2 Vaccination Myrna Richter MD Work Phone: [facility] No information available. Sharon Oliverio OBREGON [facility] [place] [facility] Work Phone: Payers Date Payer Category Payer Private Health Insurance [id number] 2022 Private Health Insurance [id number] 2021 Unknown [employer] [id number] 2021-Present [address] [place] [address] Commercial [id number] 2021 Unknown [id number] Social History Date Type Detail Facility Tobacco smoking status NHIS Never smoked tobacco [facility] Start: 11-12-2022 End: 12-11-2022 Alcohol intake Current drinker of alcohol (finding) [facility] Start: 1970 Sex Assigned At Female S [facility] Start: 11-02-2022 End: 03-05-2023 Exposure to SARS-CoV-2 (event) Not sure [facility] Start: 12-11-2022 End: 05-28-2023 History of Social function [facility] Start: 12-11-2022 End: 05-28-2023 Tobacco use panel [facility] Start: 06-26-2022 Gender identity Identifies as female gender (finding) [facility] Start: 06-26-2022 Sexual orientation Heterosexual (fin ding) [facility] Start: 03-05-2023 End: 08-20-2023 Alcohol intake Ex-drinker (finding) [facility] NEGATED: Highlighted rowStart: 03-24-2018 End: 03-24-2018 Alcohol use Never smoker [facility] Work Phone: NEGATED: Highlighted rowStart: 03-24-2018 End: 03-24-2018 Details of drug misuse behavior DRUG USE No [facility] Work Phone: NEGATED: Highlighted rowStart: 03-24-2018 End: 03-24-2018 Employment detail OCCUPATION#1 radiology [facility] Work Phone: NEGATED: Highlighted rowStart: 03-24-2018 End: 03-24-2018 Assertion Never smoker [facility] Work Phone: Clinical Notes 11-12-2022 to 08-20-2023 Tito Mireles, DIRECTOR DECISION SUPPORT - [facility] - 08/20/2023 11:30 AM ESTTelephone Encounter - Maria Del Rosario Jaskaran, [facility] - 08/15/2023 2:57 PM ESTTelephone Encounter - Maria Del Rosario Jessica, [facility] 08/15/2023 2:57 PM EST Note Date & [...] 2. L Frontalis 10 units 3. R Geological Engineering Teacher 10 units 4. L Geological Engineering Teacher 10 units 5. R Temporalis 30 units 6. L Temporalis 30 units 7. R Occipitalis 30 units 8. L Occipitalis 30 units 9. R Trapezious 20 units 10.L Trapezious 20 units Total units injected 200 units. Units discarded 0 units. Pt reports increase in migraines during July Her last Ajovy injection was in June 2023 Remains on Qulipta Comments: Botox is Patient Supplied [facility] [id number] [x] Pt tolerated procedure well. Pt advised to avoid exercise or strenuous physical activity for 24 hours. Post treatment expectations reviewed in detail. RIK Liriano CNP [facility] 08-20-2023 History of Presen t illness [...] 2. L Frontalis 10 units 3. R Geological Engineering Teacher 10 units 4. L Geological Engineering Teacher 10 units 5. R Temporalis 30 units 6. L Temporalis 30 units 7. R Occipitalis 30 units 8. L Occipitalis 30 units 9. R Trapezious 20 units 10.L Trapezious 20 units Total units injected 200 units. Units discarded 0 units. Pt reports increase in migraines during July Her last Ajovy injection was in June 2023 Remains on Qulipta Comments: Botox is Patient Supplied [facility] [id number] [x] Pt tolerated procedure well. Pt advised to avoid exercise or strenuous physical activity for 24 hours. Post treatment expectations reviewed in detail. RIK Liriano CNP documented in this encounter [facility] 08-15-2023 Telephone encounter Note Patient notified, thank you! [facility] 08-15-2023 Miscellaneous Notes Patient notified, thank you! Electronically signed by Maria Del Rosario Jessica [facility] at 08/15/2023 2:57 PM EST Maria Del Rosario, can you please reach out to the pt to let her know. Thank you Pt messaged stating she has new insurance and that Katelyn needs a PA. She states she uploaded new insurance Thank you! documented in this encounter [facility] 08-15-2023 Telephone encounter Note Maria Del Rosario, can you please reach out to the pt to let her know. Thank you [facility] 08-08-2023 Telephone encounter Note Pt messaged stating she has new insurance and that Katelyn needs a PA. She states she uploaded new insurance Thank you! [facility] 08-08-2023 Miscellaneous Notes Pt messaged stating she has new insurance and that Katelyn needs a PA. She states she uploaded new insurance Thank you! documented in this encounter [facility] 08-07-2023 Telephone encounter Note Last ov- 05/28/23 Next ov- 08/20/23 [facility] 08-07-2023 Miscellaneous Notes Last ov- 05/28/23 Next ov- 08/20/23 documented in this encounter [facility] 05-28-2023 Note DEPARTMENT OF NEUROL OGY BOTOX [...] 2. L Frontalis 10 units 3. R Geological Engineering Teacher 10 units 4. L Geological Engineering Teacher 10 units 5. R Temporalis 30 units 6. L Temporalis 30 units 7. R Occipitalis 30 units 8. L Occipitalis 30 units 9. R Trapezious 20 units 10.L Trapezious 20 units Total units injected 200 units. Units discarded 0 units. Pt reports 50% reduction in migraines with Botox Comments: Botox is Patient Supplied [facility] [id number] [x] Pt tolerated procedure well. Pt advised to avoid exercise or strenuous physical activity for 24 hours. Post treatment expectations reviewed in detail. Tito Mireles, RIK - [facility] 05-28-2023 History of Presen t illness [...] 2. L Frontalis 10 units 3. R Geological Engineering Teacher 10 units 4. L Geological Engineering Teacher 10 units 5. R Temporalis 30 units 6. L Temporalis 30 units 7. R Occipitalis 30 units 8. L Occipitalis 30 units 9. R Trapezious 20 units 10.L Trapezious 20 units Total units injected 200 units. Units discarded 0 units. Pt reports 50% reduction in migraines with Botox Comments: Botox is Patient Supplied [facility] [id number] [x] Pt tolerated procedure well. Pt advised to avoid exercise or strenuous physical activity for 24 hours. Post treatment expectations reviewed in detail. RIK Liriano CNP documented in this encounter [facility] 03-05-2023 Note DEPARTMENT OF NEUROL OGY BOTOX [...] 2. L Frontalis 10 units 3. R Geological Engineering Teacher 10 units 4. L Geological Engineering Teacher 10 units 5. R Temporalis 30 units 6. L Temporalis 30 units 7. R Occipitalis 30 units 8. L Occipitalis 30 units 9. R Trapezious 20 units 10.L Trapezious 20 units Total units injected 200 units. Units discarded 0 units. Pt reports >50% reduction in migraines with Botox Comments: Botox is Patient Supplied [facility] [id number] [x] Pt tolerated procedure well. Pt advised to avoid exercise or strenuous physical activity for 24 hours. Post treatment expectations reviewed in detail. RIK Liriano CNP [facility] 08-02-2023 History of Presen t illness [...] 2. L Frontalis 10 units 3. R Geological Engineering Teacher 10 units 4. L Geological Engineering Teacher 10 units 5. R Temporalis 30 units 6. L Temporalis 30 units 7. R Occipitalis 30 units 8. L Occipitalis 30 units 9. R Trapezious 20 units 10.L Trapezious 20 units Total units injected 200 units. Units discarded 0 units. Pt reports >50% reduction in migraines with Botox Comments: Botox is Patient Supplied [facility] [id number] [x] Pt tolerated procedure well. Pt advised to avoid exercise or strenuous physical activity for 24 hours. Post treatment expectations reviewed in detail. RIK Liriano CNP documented in this encounter [facility] 02-21-2023 Telephone encounter Note Noted [facility] 02-21-2023 Miscellaneous Notes Noted The patient has upcoming Botox appt on 03/05/2023. The Botox will be supplied by us at [facility] and delivered to the MD office on . BOTOX IS PATIENT SUPPLIED!!! # of Units to be Administered: 200 Medication: Botox 200 Dosing Schedule: every 12 weeks Prior Authorization: Approved Number of Units Approved: 200 documented in this encounter [facility] 02-20-2023 Telephone encounter Note The patient has upcoming Botox appt on 03/05/2023. The Botox will be supplied by us at [facility] and delivered to the MD office on . BOTOX IS PATIENT SUPPLIED!!! # of Units to be Administered: 200 Medication: Botox 200 Dosing Schedule: every 12 weeks Prior Authorization: Approved Number of Units Approved: 200 [facility] 12-11-2022 Note DEPARTMENT OF NEUROL OGY BOTOX [...] 2. L Frontalis 10 units 3. R Geological Engineering Teacher 10 units 4. L Geological Engineering Teacher 10 units 5. R Temporalis 30 units 6. L Temporalis 30 units 7. R Occipitalis 30 units 8. L Occipitalis 30 units 9. R Trapezious 20 units 10.L Trapezious 20 units Total units injected 200 units. Units discarded 0 units. She reports that she was given samples of Qulipta and they are really helping Comments: Botox is Patient Supplied [facility] [id number] [x] Pt tolerated procedure well. Pt advised to avoid exercise or strenuous physical activity for 24 hours. Post treatment expectations reviewed in detail. Tito Mireles, RIK - [facility] 12-11-2022 History of Presen t illness Narrative [...] 2. L Frontalis 10 units 3. R Geological Engineering Teacher 10 units 4. L Geological Engineering Teacher 10 units 5. R Temporalis 30 units 6. L Temporalis 30 units 7. R Occipitalis 30 units 8. L Occipitalis 30 units 9. R Trapezious 20 units 10.L Trapezious 20 units Total units injected 200 units. Units discarded 0 units. She reports that she was given samples of Qulipta and they are really helping Comments: Botox is Patient Supplied [facility] [id number] [x] Pt tolerated procedure well. Pt advised to avoid exercise or strenuous physical activity for 24 hours. Post treatment expectations reviewed in detail. RIK Liriano CNP documented in this encounter [facility] 11-26-2022 Telephone encounter Note Help with Botox [facility] 11-26-2022 Miscellaneous Notes Help with Botox Name of caller: Laxmi Contact phone number: [phone] Relationship to Patient: patient Provider: Dr. Richter [place] [facility] [place] Chief Complaint/Reason for Call: Pt is scheduled [...] their call: No documented in this encounter [facility] 11-26-2022 Telephone encounter Note Name of caller: Laxmi Contact phone number: [phone] Relationship to Patient: patient Provider: Dr. Richter [place] [facility] [place] [facility] [place] Chief Complaint/Reason for Call: Pt is scheduled [...] business hours to return their call: No [facility] 11-12-2022 History of Presen t illness Narrative Images from the original note were not included. [facility] [address] [facility] [address] Dept: [phone] Dept Loc: [phone] Visit type: Established Patient Reason for Visit: [...] 08/18/2022 10 20 each [id number] [place]... Atogepant Dispensed Days Supply Quantity Provider Pharmacy QULIPTA 60 MG TABLET 08/02/2022 30 30 each Myrna Richter MD [facility] - ... QULIPTA 60 MG TABLET 07/02/2022 30 30 each Myrna Richter MD [facility] - ... QULIPTA 60 MG TABLET 06/04/2022 30 30 each Myrna Richter MD [facility] - ... QULIPTA 60 MG TABLET 05/09/2022 30 30 each Myrna Richter MD [facility] - ... QULIPTA 60 MG TABLET 03/27/2022 30 30 each Mynra Richter MD [facility] - ... DULoxetine HCl Dispensed Days Supply Quantity Provider Pharmacy DULOXETINE HCL DR 30 MG CAP 09/12/2022 90 90 each Maile Wen MD [facility] - ... DULOXETINE HCL DR 30 MG CAP 06/04/2022 90 90 each Maile Wen MD [facility] - ... DULOXETINE HCL DR 30 MG CAP 03/13/2022 90 90 each Maile Wen MD [facility] - ... DULOXETINE HCL DR 30 MG CAP 12/13/2021 90 90 each Maile Wen MD [facility] - ... Erenumab-aooe Dispensed Days Supply Quantity Provider Pharmacy AIMOVIG 140 MG/ML AUTOINJECTOR 12/25/2021 28 1 mL Myrna Richter MD [facility] - ... AIMOVIG 140 MG/ML AUTOINJECTOR 11/27/2021 28 1 mL Myrna Richter MD [facility] - ... Estradiol Dispensed Days Supply Quantity Provider Pharmacy NNEKA 0.05 MG PATCH 05/16/2022 28 8 each Summer Benja Kuo MD [facility] - ... NNEKA 0.05 MG PATCH 02/18/2022 28 8 each Summer Benja Kuo MD [facility] - ... NNEKA 0.05 MG PATCH 01/28/2022 28 8 each Summer Benja Kuo MD [facility] - ... NNEKA 0.05 MG PATCH 12/25/2021 28 8 each Summer Benja Kuo MD [facility] - ... NNEKA 0.05 MG PATCH 11/22/2021 28 8 each Summer Benja Kuo MD [facility] - ... Fremanezumab-vfrm Dispensed Days Supply Quantity Provider Pharmacy AJOVY 225 MG/1.5 ML SYRINGE 11/05/2022 30 1.5 mL Tito Mireles APRN [facility] - ... AJOVY 225 MG/1.5 ML SYRINGE 10/02/2022 30 1.5 mL Tito Mireles APRN [facility] - ... AJOVY 225 MG/1.5ML SOSY 08/29/2022 30 1.5 mL Tito Mireles APRN [facility] - ... AJOVY 225 MG/1.5 ML SYRINGE 07/11/2022 30 1.5 mL Tito Mireles APRN [facility] - ... Galcanezumab-gnlm Dispensed Days Supply Quantity Provider Pharmacy EMGALITY 120 MG/ML PEN 05/02/2022 30 1 mL Myrna Richter MD [facility] - ... EMGALITY 120 MG/ML PEN 03/20/2022 30 1 mL Myrna Richter MD [facility] - ... EMGALITY 120 MG/ML PEN 02/18/2022 30 1 mL Myrna Richter MD [facility] - ... EMGALITY 120 MG/ML SOAJ 01/22/2022 30 1 mL [facility] - ... Nortriptyline HCl Dispensed Days Supply Quantity Provider Pharmacy NORTRIPTYLINE HCL 10 MG CAP 10/28/2022 90 90 each Maile Wen MD [facility] - ... NORTRIPTYLINE HCL 10 MG CAP 07/31/2022 90 90 each Maile Wen MD [facility] - ... NORTRIPTYLINE HCL 10 MG CAP 04/19/2022 90 90 each Maile Wen MD [facility] - ... NORTRIPTYLINE HCL 10 MG CAP 12/25/2021 90 90 each Maile Wen MD [facility] - ... OnabotulinumtoxinA Dispensed Days Supply Quantity Provider Pharmacy BOTOX 200 UNIT VIAL 06/26/2022 30 1 each Myrna Richter MD [facility] - ... BOTOX 200 UNIT VIAL 03/27/2022 30 1 each Myrna Richter MD [facility] - ... Orlistat Dispensed Days Supply Quantity Provider Pharmacy ORLISTAT 120 MG CAPSULE 10/15/2022 30 90 each Maile Wen MD [id number] [place]... ORLISTAT 120 MG CAPSULE 09/16/2022 30 90 each Maile Wen MD [id number] - [place]... Pramipexole Dihydrochloride Dispensed Days Supply Quantity Provider Pharmacy PRAMIPEXOLE 0.25 MG TABLET 03/22/2022 90 270 each Myrna Richter MD [facility] - ... PRAMIPEXOLE 0.25 MG TABLET 11/28/2021 8 60 each Maile Wen MD [facility] - ... Rimegepant Sulfate Dispensed Days Supply Quantity Provider Pharmacy NURTEC ODT 75 MG TABLET 03/11/2022 30 8 each Myrna Richter MD [facility] - ... NURTEC ODT 75 MG TABLET 01/30/2022 30 8 each Myrna Richter MD [facility] - ... NURTEC 75 MG TBDP 01/22/2022 30 8 tablet [facility] Rizatriptan Benzoate Dispensed Days Supply Quantity Provider Pharmacy RIZATRIPTAN 10 MG TABLET 10/28/2022 15 6 each Myrna Richter MD [facility] - ... RIZATRIPTAN 10 MG TABLET 09/12/2022 15 6 each Myrna Richter MD [facility] - ... RIZATRIPTAN 10 MG TABLET 08/09/2022 15 6 each Myrna Richter MD [facility] - ... RIZATRIPTAN 10 MG TABLET 07/11/2022 15 6 each Myrna Richter MD [facility] - ... RIZATRIPTAN 10 MG TABLET 06/04/2022 15 6 each Myrna Richter MD [facility] - ... RIZATRIPTAN 10 MG TABLET 04/22/2022 15 6 each Myrna Richter MD [facility] - ... RIZATRIPTAN 10 MG TABLET 03/22/2022 15 6 each Myrna Richter MD [facility] - ... RIZATRIPTAN 10 MG TABLET 12/25/2021 15 6 each Myrna Richter MD [facility] - ... RIZATRIPTAN 10 MG TABLET 11/27/2021 15 6 each Myrna Richter MD [facility] - ... Tobramycin Dispensed Days Supply Quantity Provider Pharmacy TOBRAMYCIN 0.3% EYE DROP 08/13/2022 7 5 mL Best Perez [facility] - ... Zolpidem Tartrate Dispensed Days Supply Quantity Provider Pharmacy ZOLPIDEM TARTRATE 5 MG TABLET 10/30/2022 20 20 each Maile Wen MD [facility] - ... ZOLPIDEM TARTRATE 5 MG TABLET 10/09/2022 20 20 each Maile Wen MD [facility] - ... ZOLPIDEM TARTRATE 5 MG TABLET 09/18/2022 20 20 each Maile Wen MD [facility] - ... ZOLPIDEM TARTRATE 5 MG TABLET 08/29/2022 20 20 each Maile Wen MD [facility] - ... ZOLPIDEM TARTRATE 5 MG TABLET 08/02/2022 20 20 each Maile Wen MD [facility] - ... ZOLPIDEM TARTRATE 5 MG TABLET 07/15/2022 20 20 each Maile Wen MD [facility] - ... ZOLPIDEM TARTRATE 5 MG TABLET 06/24/2022 20 20 each Maile Wen MD [facility] - ... ZOLPIDEM TARTRATE 5 MG TABLET 06/04/2022 20 20 each Maile Wne MD [facility] - ... ZOLPIDEM TARTRATE 5 MG TABLET 05/16/2022 20 20 each Maile Wen MD [facility] - ... ZOLPIDEM TARTRATE 5 MG TABLET 04/19/2022 20 20 each Maile Wen MD [facility] - ... ZOLPIDEM TARTRATE 5 MG TABLET 03/27/2022 20 20 each Maile Wen MD [facility] - ... ZOLPIDEM TARTRATE 5 MG TABLET 02/26/2022 20 20 each Maile Wen MD [facility] - ... ZOLPIDEM TARTRATE 5 MG TABLET 01/30/2022 20 20 each Maile Wen MD [facility] - ... ZOLPIDEM TARTRATE 5 MG TABLET 12/25/2021 20 20 each Maile Wen MD [facility] - ... ZOLPIDEM TARTRATE 5 MG TABLET 11/27/2021 20 20 each Maile Wen MD [facility] - ... Past Medical History: [...] TSH VITAMIN B12: No results found for: [id number] No results found for: PHENYTOIN, PHENOBARB, VALPROATE, CBMZ No components found for: TOPIRA @RESULTINGLABINFO@ No results found for: LEVETIRACETA, FERRITIN, CRP, CINTIA, ANCA No results found for: NIRAV, IMMUNOGLOBUL, OLIGOBANDS No results found for: YAU34HB, HEPCAB No results found for: CRP, ANATITER, [...] arranging for studies. documented in this encounter [facility] [place] [facility]* Diagnosis Intractable migraine with aura without status migrainosus- Primary [facility] [place] [facility]* Diagnosis Intractable migraine with aura without status migrainosus- Primary [facility] [place] [facility]* Diagnosis Intractable migraine with aura without status migrainosus- Primary [facility] [place] [facility]* Diagnosis Intractable migraine with aura without status migrainosus- Primary [facility] [place] [facility]* Diagnosis Intractable migraine with aura without status migrainosus- Primary documented in this encounter [facility] Summary Purpose Family History No Family History [...] without status migrainosus Tito Mireles, RIK - NET DEVELOPMENT MANAGER [address] [place] [address] Referral ID Status Reason Start Date Expiration Date V isits Requested Visits Authorized [id number] Pending Review 12/11/2022 06/09/2023 1 1 Referral ID Status Reason Start Date Expiration Date V isits Requested Visits Authorized [id number] Pending Review 03/05/2023 09/01/2023 1 1 Referral ID Status Reason Start Date Expiration Date V isits Requested Visits Authorized [id number] Pending Review 05/28/2023 11/24/2023 1 1 Referral ID Status Reason Start Date Expiration Date V isits Requested Visits Authorized [id number] Pending Review 08/20/2023 08/14/2024 1 1 Additional Source Comments INFORMATION SOURCE (unrecogn ized section and content) DATE CREATED AUTHOR AUTHOR'S ORGANIZ ATION 08/22/2023 [facility] Reason for Visit (unrecogniz ed section and content) Specialty Diagnoses / Procedures Referred By Kalin edwards Referred To Contact Diagnoses Intractable migraine with aura without status migrainosus Tito Mireles, DIRECTOR DECISION SUPPORT - NET DEVELOPMENT MANAGER [address] [place] [address] Referral ID Status Reason Start Date Expiration Date V isits Requested Visits Authorized [id number] Pending Review 05/28/2023 11/24/2023 1 1 Reason Comments Botulinum Toxin Injection Referral ID Status Reason Start Date Expiration Date V isits Requested Visits Authorized [id number] Pending Review 03/05/2023 09/01/2023 1 1 Reason Comments Follow-up Headache Reason Onset Date Comments Medication Problem 11/26/2022 Referral ID Status Reason Start Date Expiration Date V isits Requested Visits Authorized [id number] Pending Review 12/11/2022 06/09/2023 1 1 Reason Onset Date Comments Botox Delivery 02/20/2023 Botox Reason Comments Med Refill Reason Onset Date Comments Med Refill 08/07/2023 Referral ID Status Reason Start Date Expiration Date V isits Requested Visits Authorized [id number] Pending Review 08/20/2023 08/14/2024 1 1 Care Teams (unrecognized sec tion and content) Electrolog Operator Relationship Specialty Start Date End Date Maile Wen MD [address] [place] [address] PCP - General 09/20/20 Electrolog Operator Relationship Specialty Start Date End Date Maile Wen MD [address] [place] [address] PCP - General 09/20/20 Electrolog Operator Relationship Specialty Start Date End Date Maile Wen MD [address] [place] [address] PCP - General 09/20/20 Electrolog Operator Relationship Specialty Start Date End Date Maile Wen MD [address] [place] [address] PCP - General 09/20/20 Electrolog Operator Relationship Specialty Start Date End Date Maile Wen MD [address] [place] [address] PCP - General 09/20/20 Electrolog Operator Relationship Specialty Start Date End Date Maile Wen MD [address] [place] [address] PCP - General 09/20/20 Electrolog Operator Relationship Specialty Start Date End Date Maile Wen MD [address] [place] [address] [facility] General 09/20/20 FOR RECORDS PERTAINING TO PATIENTS [...] BE BASED ON THE PRIMARY CLINICAL RECORDS. [facility] [employer] [facility]. provides no warranty or guarantee of the accuracy or completeness of information in this document.
== END | disposition home or self-care (01) ==
LOC: RAD 09:23
PROVIDERS: PCP Family Medicine; Referring Provider Internal Medicine Gastroenterology; Visit Provider Internal Medicine Gastroenterology
DX: K59.04 Chronic idiopathic constipation (principal)
CPT/HCPCS: 74018

== ENCOUNTER → 2023-12-15 | Outpatient (CLI) | payer BC, SELFPAY ==
--- NOTE | 2023-12-15 15:41 | MRI_ITS ---
STUDY: MRI THORACIC SPINE WITHOUT CONTRAST REASON FOR EXAM: Female, 53 years old. PAIN TECHNIQUE: Standardized fat and water weighted pulse sequences were obtained in the sagittal and axial planes. COMPARISON: None. FINDINGS: Normal kyphosis of the thoracic spine. There is mild levo scoliosis. Disc space heights are well-maintained however there is mild multilevel disc degeneration without focal disc protrusion spinal stenosis or cord compression. Normal visualized thoracic cord. Normal conus medullaris that terminates at T12-L1 The soft tissue structures are unremarkable. MRI/Spine Thoracic (Routine) IMPRESSION: No evidence for acute fracture or other significant bony pathology Mild multilevel disc degeneration but no evidence for disc protrusion spinal stenosis or cord compression Electronically Signed: Roosevelt Shahid MD at 17:32 EDT ,
== END | disposition home or self-care (01) ==
LOC: MRI 15:40
PROVIDERS: PCP Family Medicine; Referring Provider Anesthesiology Pain Medicine; Visit Provider Anesthesiology Pain Medicine
DX: M47.24 Other spondylosis with radiculopathy, thoracic region (principal)
CPT/HCPCS: 72146

== ENCOUNTER 2023-12-25 14:16 | Emergency (ER) | payer OTHER, BC, SELFPAY ==
[2023-12-25 14:16] VITALS: BP 144/48; PULSE 102; RESP 18; TEMP 36.6; O2SAT 100
--- NOTE | 2023-12-25 14:24 | EDS_ITS ---
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 She notes pain laterally over the lateral malleolus and lateral mid proximal foot. She notes swelling. She denies other injuries. [facility] Medical History Chronic idiopathic constipation Gastroesophageal reflux disease Anxiety Kidney stones Gastric reflux Non-smoker History of stress test Chest pain benign mass on kidney and or bladder Osteopenia History of kidney stones Breast lump GI problem Back problem Home Medications ?Medication ?Instructions ?Recorded ?Last Taken ?Type rizatriptan 10 mg tablet 10 mg PO .X1 PRN PRN migraines 12/26/17 05/15/21 History estradiol 0.0375 mg/24 hr 1 patch transdermal 2XW 02/23/21 05/15/21 History semiweekly transdermal patch (Sadaf) onabotulinumtoxinA 100 unit 5 unit IM .[id number] 09/03/23 Unknown History solution for injection (Botox) progesterone micronized 100 mg 100 mg PO QAM 09/03/23 Unknown History capsule miscellaneous medical supply 20 ea miscellaneous .COMPLEX #20 ea 09/26/23 Unknown Rx Allergy/AdvReac Type Severity Reaction Status Date / Time Sulfa (Sulfonamide Allergy Hives Verified 12/25/23 14:18 Antibiotics) Family History Grandmother Colon cancer cervical Mother Myocardial infarction, Onset Age: 50 Kidney disease Father Hx of blood clots Diabetes Cancer Skin Other Melanoma Psychiatric diagnosis Substance abuse Surgical History History of Lola fundoplication (~05/2021) History of esophagogastroduodenoscopy (EGD) History of bladder suspension procedure History of cardiac catheterization Adhesion of stomach Hx of bladder repair surgery History of hysterectomy History of knee surgery History of ankle surgery History of tonsillectomy Social History Smoking Status: Never smoker second hand exposure: No alcohol intake: current alcohol intake frequency: holidays/special occasions only substance use type: does not use caffeine: Yes what type of physical activity do you participate in: bicycling and aerobics frequency: 3-4 times per week ROS ROS ED Constitutional Constitutional ED: Denies chills, fever(s) or weight loss Eyes Eyes: Denies change in vision or diplopia ENT ENT ED: Denies ear pain, rhinorrhea or sore throat Cardiovascular Cardiovascular: Denies chest pain, orthopnea, palpitations or racing heartbeat Respiratory/Chest Respiratory/Chest: Denies cough, dyspnea or orthopnea Gastrointestinal Gastrointestinal: Denies abdominal pain, diarrhea, nausea or vomiting Genitourinary Genitourinary ED: Denies dysuria, hematuria or urinary frequency Musculoskeletal Musculoskeletal: Reports other Details: See history of present illness ; Denies arthralgias or myalgias Integumentary Denies abscess or rash Neurologic Neurologic: Denies headache(s) or weakness Psychiatric Psychiatric: Denies anxiety, depression, suicidal ideation or suicidal thoughts Endocrine Endocrinology: Denies polydipsia, polyphagia or polyuria Allergic/Immunologic Allergic/Immunologic ED: Denies mouth swelling, tongue swelling or urticaria EXAM Physical Exam Const Vital Signs: 12/25/23 14:16 Temperature 97.8 F Temperature Source Temporal Pulse Rate 102 H Respiratory Rate 18 Blood Pressure 144/48 H Blood Pressure Mean 80 Pulse Ox 100 Oxygen Delivery Method Room Air Positive well nourished and well developed General Appearance ED: well developed HEENT Reports normocephalic, head/scalp atraumatic and moist mucous membranes Eyes PERRL and EOMs intact bilaterally Neck no lymphadenopathy, supple and no JVD Resp normal respiratory effort and clear to auscultation bilaterally Cardio regular rate, regular rhythm and no murmurs GI normal to inspection, nondistended, normoactive bowel sounds and non-tender Palpation: soft Back/Spine no CVA tenderness and normal ROM Extremity Extremity Narrative: FIGHT FOOT?ANKLE: Patient has swelling over the anterior aspect of the lateral malleolus and up along the mortise joint between the tibia and fibula. There is also very focal tenderness and swelling at the level of the cuboid bone. No fifth metatarsal pain. No fibular head pain. General Extremety ED: Negative for edema General Extremity: Negative for edema Neuro oriented x3 and CN's II-XII intact bilaterally Sensorium / Orientation: alert Motor Exam: strength 5/5 throughout Psych mental status grossly normal Mood & Affect: Negative for depressed or tearful Skin no rashes or lesions noted and no wounds MDM MDM MDM Narrative Medical decision making narrative: My independent interpretation of the plain films of the right foot and ankle is soft tissue swelling. On the AP view of the ankle concerned about a possible fracture of the cuboid. Clinically this is about right where the patient hurts and is swollen. The swelling and the tenderness is not in a typical lateral ankle sprain position. This raises my clinical suspicion radiation to the radiographs. The place her in a boot orthosis will have her continue to ice rest follow-up with orthopedist or fitting room inspector of her choice. Dr. Pendleton is on- call today for foot and ankle. History & Record Review Discussion w/independent historian: Patient Discharge Plan Triage Chief Complaint: Lower Extremity Injury ED Provider: Jesus Cox Dx/Rx/DC Orders Clinical Impression: Right ankle sprain, Closed fracture cuboid Instructions: ED Fracture, Foot Prescriptions: No Action estradiol [Sadaf] 0.0375 mg/24 hr patch semiweekly 1 patch transdermal 2XW Rx Instructions: apply 1 patch for 3 days alternating with 1 patch for 4 days each week for 3 wks per 4-wk cycle Botox 100 unit recon soln 5 unit IM .[id number] Rx Instructions: as a single dose progesterone micronized 100 mg capsule 100 mg PO QAM Rx Instructions: off 7 days; repeat cycle rizatriptan 10 MG tablet 10 mg PO .X1 PRN PRN (Reason: migraines) miscellaneous medical supply Misc 20 ea miscellaneous .COMPLEX Qty: 20 11RF Rx Instructions: Vibrant Dx - CIC K59.04 ingest per procedure up to 5 times a week New patient start Code: [id number] Primary Care Provider: Maile Wen Referrals: Maile Wen MD [Primary Care Provider] - Rodney Pendleton DPM [Med Staff - Active Staff] - As soon as possible Activity Restrictions/Additional Instructions: Please follow-up with fitting room inspector or orthopedist of your choice or Dr. Cummings is on as above. Continue to ice. You may come out of the boot to do so. Please wear the boot when up. Print Language: Hungarian Disposition Disposition: Home, Self Care
--- NOTE | 2023-12-25 14:25 | RAD_ITS ---
STUDY: X-RAY - RIGHT ANKLE REASON FOR EXAM: Female, 53 years old. Injury. TECHNIQUE: 3 views of the right ankle. COMPARISON: None. FINDINGS: Normal visualized distal tibia and fibula. Normal medial and lateral malleoli. Normal tibiotalar articulation and ankle mortise. Normal visualized talus and calcaneus. The visualized subtalar, talonavicular, calcaneocuboid and tarsal articulations are normal. There is no demonstrated fracture. The soft tissue structures are unremarkable. RAD/Ankle min 3 Views IMPRESSION: Normal x-ray examination of the ankle. Electronically Signed: Eduard Rayo MD at 14:56 EDT ,
--- NOTE | 2023-12-25 14:25 | RAD_ITS ---
STUDY: X-RAY - RIGHT FOOT CLINICAL: Female, 53 years old. Injury and pain. TECHNIQUE: 3 views of the right foot. COMPARISON: None. FINDINGS: Normal talus, calcaneus, and tarsal bones. Normal visualized subtalar, talonavicular, calcaneocuboid, tarsal and tarsometatarsal articulations. Normal metatarsi. Normal metatarsophalangeal joint of the great toe. Normal tibial and fibular sesamoid bones. Normal interphalangeal joint of the great toe. Normal phalanges of the great toe. Normal second through fifth metatarsophalangeal joints. Normal interphalangeal joints and phalanges of the lesser toes. The soft tissue structures are unremarkable. There is no demonstrated fracture. RAD/Foot min 3 Views IMPRESSION: Normal x-ray examination of the right foot. Electronically Signed: Eduard Rayo MD at 14:49 EDT ,
== END 2023-12-25 15:45 | disposition home or self-care (01) ==
PROVIDERS: Emergency Provider Emergency Medicine; PCP Family Medicine; Visit Provider Emergency Medicine
DX: S92.211A Displaced fracture of cuboid bone of right foot, initial encounter for closed fracture (principal); S93.401A Sprain of unspecified ligament of right ankle, initial encounter; W01.0XXA Fall on same level from slipping, tripping and stumbling without subsequent striking against object, initial encounter; Y99.0 Civilian activity done for income or pay; K21.9 Gastro-esophageal reflux disease without esophagitis
CPT/HCPCS: 73610; 73630; 99283

== ENCOUNTER → 2024-08-05 | Outpatient (CLI) | payer BC, SELFPAY ==
--- NOTE | 2024-08-05 11:51 | MRI_ITS ---
STUDY: MRI LEFT SHOULDER REASON FOR EXAM: Female, 54 years old. LEFT SHOULDER IMPINGEMENT, BURSITIS TECHNIQUE: Standardized fat and water weighted pulse sequences were obtained in all 3 orthogonal planes. COMPARISON: None. FINDINGS: Normal supraspinatus tendon. Normal infraspinatus tendon. Normal subscapularis tendon. Normal teres minor tendon. Normal supraspinatus muscle. Normal infraspinatus muscle. Normal subscapularis muscle. Normal teres minor muscle. Normal glenohumeral articulation. Normal humeral head and visualized proximal humerus. Normal biceps labral complex. Normal intracapsular long biceps tendon. Normal labrum. Normal capsulo-ligamentous complex. Normal rotator interval. There is mild hypertrophic acromioclavicular arthrosis. There is a Type II morphology (curved), with a neutral orientation. There is trace subacromial-subdeltoid bursal fluid. Normal visualized coracohumeral and coracoacromial ligaments. Normal quadrilateral space. Normal axillary space. Normal deltoid muscle. Normal trapezius muscle. MRI/Upper Ext Joint Only(Routine) IMPRESSION: Mild hypertrophic acromioclavicular arthrosis. Minimal subacromial-subdeltoid bursitis. No rotator cuff tear. Electronically Signed: Eduard Rayo MD at 14:13 [facility] ,
== END | disposition home or self-care (01) ==
PROVIDERS: PCP Family Medicine; Referring Provider Physician Assistant Surgical; Visit Provider Physician Assistant Surgical
DX: M75.42 Impingement syndrome of left shoulder (principal); M75.52 Bursitis of left shoulder
CPT/HCPCS: 73221

== ENCOUNTER → 2025-01-21 | Outpatient (CLI) | payer BC, SELFPAY ==
--- NOTE | 2025-01-21 10:29 | BI_ITS ---
EXAM: SCRN MAMM (CAD)W/EDMUNDO BILAT 01/21/2025 CLINICAL HISTORY: F, Age 54 y/o , SCREENING TECHNIQUE: Bilateral screening digital breast tomosynthesis with 2D and 3D images. Computer aided detection. COMPARISON: Prior exam(s) dated 07/03/2023, 03/13/2022, 05/12/2020. FINDINGS: TISSUE DENSITY: The breast tissue is heterogenously dense, which may obscure small masses. The mammogram demonstrates that the patient has dense breasts. Supplemental screening with whole breast ultrasound or MRI may be considered for further evaluation. Bilateral Breast Mammographic Findings: No significant masses, calcifications or other abnormalities are identified. BI/SCRN MAMM (CAD)W/EDMUNDO BILAT IMPRESSION: Right Breast: BIRADS 1 NEGATIVE. Left Breast: BIRADS 1 NEGATIVE. OVERALL FINAL ASSESSMENT: BIRADS 1 NEGATIVE. RECOMMENDATION: Routine annual follow-up in 1 Year A letter with findings and recommendations will be mailed to the patient. Reading Location: [id number]
== END | disposition home or self-care (01) ==
LOC: OPBI 10:27
PROVIDERS: PCP Family Medicine; Referring Provider Family Medicine; Visit Provider Family Medicine
DX: Z12.31 Encounter for screening mammogram for malignant neoplasm of breast (principal)
CPT/HCPCS: 77063; 77067